=== PATIENT | male | born 1975 | race Caucasian/White ===

== ENCOUNTER → 2016-11-12 | Outpatient (CLI) | payer BC ==
--- NOTE | 2016-11-12 13:57 | Diagnostic Imaging Report ---
PROCEDURE: CT abdomen and pelvis without contrast. TECHNIQUE: Multiple contiguous axial images were obtained through the abdomen and pelvis without the use of intravenous contrast. INDICATION: Gross hematuria. FINDINGS: The lung bases appear unremarkable. The liver, the gallbladder, the adrenals, and the pancreas appear unremarkable for unenhanced exam. The spleen is 14.3 x 5.2 x 11.9 cm in size, mildly enlarged. The kidneys demonstrate no hydronephrosis. No urinary tract stones. There is no bowel obstruction. The appendix is normal. There is diverticulosis. No diverticulitis. No free fluid or fluid collection in the abdomen or pelvis is seen. There is a small fat-containing umbilical hernia. The osseous structures demonstrate mild degenerative changes of the sacroiliac joints. IMPRESSION: 1. Small fat-containing periumbilical hernia. 2. Diverticulosis. No diverticulitis. 3. No urinary tract stones. No hydronephrosis. Dictated by: Dictated on workstation # [id number]
== END ==
LOC: RAD 12:21
PROVIDERS: ATTEND Urology
DX: R31.0 Gross hematuria (principal); K42.9 Umbilical hernia without obstruction or gangrene; K57.30 Diverticulosis of large intestine without perforation or abscess without bleeding
CPT/HCPCS: 74176

== ENCOUNTER 2018-01-16 06:14 | Emergency (ER) | payer BC ==
[~2018-01-16] VITALS: Ht 177.8 cm; Wt 81.6 kg
[2018-01-16] MEDS ORDERED: RIVA1TAB (06:27)
[2018-01-16] MEDS ORDERED: SERT25TA5 (06:27)
[2018-01-16] MEDS ORDERED: ATOR10TA66 (06:27)
--- NOTE | 2018-01-16 06:51 | ED Lower Extremity ---
General Chief Complaint: Lower Extremity Stated Complaint: PAIN BEHIND KNEE, LEFT LEG Nursing Triage Note: LEFT POSTERIOR LEG PRESSURE. STARTED ON XARALTO FOR DVT Nursing Sepsis Screen: No Definite Risk Source: patient Exam Limitations: no limitations History of Present Illness Date Seen by Provider: Jan 16, 2018 Time Seen by Provider: 06:25 Initial Comments Here with complaint of left posterior leg pressure. Apparently had event earlier this week after a long car trip was seen at another facility and found to have a DVT in the area behind the left knee. He was started on Xarelto at that time and has been on it since. He woke up this morning and felt like there is a little bit of pressure above the spot where the DVT was is very concerned about a PE. Denies chest pain or shortness of breath. Denies other problems or concerns. States the leg actually feels better and is not swollen more, and in fact is probably swollen less now. Onset: this morning Severity: mild Pain/Injury Location: left leg Method of Injury: other Modifying Factors: Improves With Rest Allergies and Home Medications Patient Home Medication List Home Medication List Reviewed: Yes Constitutional: see HPI; No chills, No fever Respiratory: no symptoms reported; No dyspnea on exertion, No wheezing Cardiovascular: No chest pain, No edema, No palpitations, No syncope Gastrointestinal: no symptoms reported Genitourinary: no symptoms reported Musculoskeletal: see HPI, muscle pain; No muscle stiffness, No muscle cramps Skin: see HPI; No change in color, No lesions Past Mywhhkt-Zntihd-Mjgpso Hx Past Med/Social Hx: Reviewed Nursing Past Med/Soc Hx Patient Social History Alcohol Use: Denies Use Recreational Drug Use: No Smoking Status: Never a Smoker 2nd Hand Smoke Exposure: No Recent Foreign Travel: No Contact w/Someone Who Travel: No Recent Infectious Disease Expo: No Recent Hopitalizations: No Immunizations Up To Date Tetanus Booster (TDap): Unknown Seasonal Allergies Seasonal Allergies: No Past Medical History Respiratory: No Cardiac: Yes High Cholesterol Neurological: No Genitourinary: No Gastrointestinal: No Musculoskeletal: No Endocrine: No HEENT: No Cancer: No Psychosocial: Yes Anxiety Integumentary: No Family Medical History Reviewed Nursing Family Hx Physical Exam Vital Signs Vital Signs - First Documented 01/16/18 06:20 Temp 97.7 Pulse 75 Resp 20 B/P (MAP) 144/108 (120) Pulse Ox 99 O2 Delivery Room Air Capillary Refill : Less Than 3 Seconds Height, Weight, BMI Height: 5'10.00" Weight: 180lbs. oz. 81.209844pa; BMI Method:Estimated General Appearance: WD/WN, no apparent distress Cardiovascular: regular rate, rhythm, no edema, no murmur Respiratory: lungs clear, normal breath sounds Gastrointestinal: non tender, soft Legs: bilateral leg non-tender, bilateral leg normal inspection, bilateral leg normal range of motion, bilateral leg no evidence of injury; left leg other ( left leg appears in size as right leg. Does have mild tenderness in the posterior aspect of the left leg distal to the knee in the area where the DVT is known to be. Otherwise no significant findings or changes) Feet: bilateral foot non-tender, bilateral foot normal inspection, bilateral foot normal range of motion Neurologic/Psychiatric: alert, oriented x 3 Skin: normal color, warm/dry Progress/Results/Core Measures Results/Orders Vital Signs/I&O 01/16/18 06:20 Temp 97.7 Pulse 75 Resp 20 B/P (MAP) 144/108 (120) Pulse Ox 99 O2 Delivery Room Air Blood Pressure Mean: 120 Progress Progress Note : Progress Note Seen and evaluated. Patient is on started pack for Xarelto and is taking that as prescribed. Patient mostly concerned about the possibility of pulmonary embolism. He has no findings of this and is currently under appropriate therapeutic treatment. All this was discussed with the patient he feels better. He admits that his anxiety related to the medical problems was the main problem and that he was actually having PE symptoms. Discharged home with return precautions. Patient verbalize understanding instructions and agreement with plan. Departure Impression Primary Impression: Left leg DVT Qualified Codes: I82.4Z2 - Acute embolism and thrombosis of unspecified deep veins of left distal lower extremity Disposition: HOME, SELF-CARE Condition: Improved Departure-Patient Inst. Decision time for Depature: 06:57 Referrals: DI BECKFORD MD (PCP/Family) Primary Care Physician Patient Instructions: Deep Vein Thrombosis (Blood Clots in the Legs) (DC) Add. Discharge Instructions: All discharge instructions reviewed with patient and/or family. Voiced understanding. Continue medications as previously prescribed. Follow-up with your DrBarbara within one week as needed for recheck and further evaluation. Return for worse pain, increased swelling, increased redness or heaviness of the leg, breathing problems, chest pain or other concerns as needed. Copy Copies To 1: DI BECKFORD MD, TIMOTHY D MD Jan 16, 2018 06:51
[2018-01-16 07:00] VITALS: BP 144/108
== END 2018-01-16 07:00 | disposition home or self-care (01) ==
LOC: EDUNIT# 06:14 → ER 06:17
DX: I82.402 Acute embolism and thrombosis of unspecified deep veins of left lower extremity (principal); E78.00 Pure hypercholesterolemia, unspecified; F41.9 Anxiety disorder, unspecified; Z79.01 Long term (current) use of anticoagulants
CPT/HCPCS: 99283

== ENCOUNTER 2018-01-20 20:11 | Emergency (ER) | payer BC ==
[~2018-01-20] VITALS: Ht 177.8 cm; Wt 86.2 kg
[~2018-01-20 20:11] MED LIST: ATOR10TA66; RIVA1TAB; SERT25TA5
--- NOTE | 2018-01-20 20:51 | ED Chest Pain ---
General Chief Complaint: Chest Pain Stated Complaint: BLOOD CLOT Nursing Triage Note: PT PRESENTS TO ER WITH COMPLAINT OF BLOOD CLOT. PT STATES HE WAS DIAGNOSED LAST SATURDAY WITH A DVT IN LEFT LEG. PT IS WORRIED THAT THE CLOT HAS MOVED TO HIS LUNGS, SINCE HE IS HAVING PAIN WHENEVER HE TAKES A DEEP BREATH IN. PT TAKES XARELTO 15MG TWICE A DAY. Nursing Sepsis Screen: No Definite Risk Source: patient Exam Limitations: no limitations History of Present Illness Date Seen by Provider: Jan 20, 2018 Time Seen by Provider: 20:48 Initial Comments to ER with reports of possible pulmonary embolism. One week ago on 01/06/18 he was diagnosed with a DVT in the left lower extremity while in [facility]. He and his wifewere on a [place]country road trip visiting [place] [employer] [place]. He returned and saw his primary care provider Dr. Beckford who started him on Xarelto 15 mg twice a day aand anxiety medication. He was seen here a few days ago for some anxiety, he is concerned he will develop a pulmonary embolism. However during that visit here in the emergency room a few days ago he had no chest pain or shortness of breath. Today he noticed a sharp pain in the right side of his chest and since then he's had some mild sharp pain to the left side of his chest with deep breathing.however, he does not feel short of breath. On arrival to ER his heart rate is in the 80s sinus without ectopy, blood pressure is 160/100, oxygen saturation 97% on room air and he is not tachypneic.the swelling in his leg is essentially gone and he has no residual pain in his left leg Timing/Duration: 1 day Severity/Quality: mild Location: central ASA po TOP FORMER: No NTG SL TOP FORMER: No Allergies and Home Medications Allergies Coded Allergies: No Known Drug Allergies (Unverified , 01/16/18) Patient Home Medication List Home Medication List Reviewed: Yes Review of Systems Constitutional: see HPI EENTM: No Symptoms Reported Respiratory: See HPI Cardiovascular: No Symptoms Reported Gastrointestinal: No Symptoms Reported Genitourinary: No Symptoms Reported Musculoskeletal: no symptoms reported Skin: no symptoms reported Psychiatric/Neurological: No Symptoms Reported Endocrine: No Symptoms Reported Hematologic/Lymphatic: No Symptoms Reported Past Ivjmapb-Guyyra-Tryard Hx Patient Social History Alcohol Use: Denies Use Recreational Drug Use: No Smoking Status: Never a Smoker 2nd Hand Smoke Exposure: No Recent Foreign Travel: No Contact w/Someone Who Travel: No Recent Infectious Disease Expo: No Recent Hopitalizations: No Immunizations Up To Date Tetanus Booster (TDap): Unknown Seasonal Allergies Seasonal Allergies: No Past Medical History Respiratory: No Cardiac: Yes High Cholesterol Neurological: No Genitourinary: No Gastrointestinal: No Musculoskeletal: No Endocrine: No HEENT: No Cancer: No Psychosocial: Yes Anxiety Integumentary: No Physical Exam Vital Signs Vital Signs - First Documented 01/20/18 20:19 Temp 99.1 Pulse 87 Resp 20 B/P (MAP) 167/103 (124) Pulse Ox 99 O2 Delivery Room Air Capillary Refill : Less Than 3 Seconds Height, Weight, BMI Height: 5'10.00" Weight: 190lbs. oz. 86.194616af; BMI Method:Stated General Appearance: No Apparent Distress, WD/WN HEENT: PERRL/EOMI, TMs Normal Neck: Full Range of Motion, Normal Inspection Respiratory: Lungs Clear, Normal Breath Sounds, No Accessory Muscle Use, No Respiratory Distress Cardiovascular: Regular Rate, Rhythm, Normal Peripheral Pulses Gastrointestinal: Normal Bowel Sounds, Non Tender, Soft Extremity: Normal Capillary Refill, Normal Inspection (/) Neurologic/Psychiatric: Alert, Oriented x3 Skin: Normal Color, Warm/Dry Progress/Results/Core Measures Results/Orders My Orders Orders - MATTHEW MARTINEZ APRN Ct Angio Chest W (01/20/18 20:47) Iohexol Injection (Omnipaque 350 Mg/Ml 1 (01/20/18 21:00) Ns (Ivpb) (Sodium Chloride 0.9% Ivpb Bag (01/20/18 21:00) Medications Given in ED Current Medications Medications Dose Ordered Sig/Fabien Route Start Time Stop Time Status Last Admin Dose Admin Iohexol 150 ml ONCE ONCE IV 01/20/18 21:00 01/20/18 21:38 DC 01/20/18 20:59 140 ML Sodium Chloride 100 ml ONCE ONCE IV 01/20/18 21:00 01/20/18 21:38 DC 01/20/18 20:59 100 ML Vital Signs/I&O 01/20/18 20:19 Temp 99.1 Pulse 87 Resp 20 B/P (MAP) 167/103 (124) Pulse Ox 99 O2 Delivery Room Air Blood Pressure Mean: 124 Diagnostic Imaging Diagonstic Imaging: CT Comments : 1975 PHYSICIAN: MATTHEW MARTINEZ POWER PROJECT MANAGER ADMIT DATE: 01/20/18/ER Signed Date of Exam:01/20/18 CT ANGIO CHEST W PROCEDURE: CT angiography of the chest with contrast. TECHNIQUE: Multiple contiguous axial images were obtained through the chest after uneventful bolus administration of intravenous contrast. Reconstructed CTA MIP acquisitions were also performed. INDICATION: DVT, chest pain. COMPARISON: None. FINDINGS: There is a tiny pulmonary embolism in the lobar branch of the right middle lobe. No additional pulmonary embolism is seen. The aorta is normal. The heart size is normal. There is no pericardial or pleural effusion. No infiltrates are seen. The osseous structures are normal. The visualized upper abdominal solid organs are unremarkable. IMPRESSION: Lobar branch pulmonary embolism in the right middle lobe. No cardiac enlargement identified. Report called to Matthew Martinez APRN by Dr. Bridges prior to dictation. Dictated by: Dictated on workstation # [id number] Dict: 01/20/182134 Trans: 01/20/182143 [facility] [id number] Interpreted by: DI BRIDGES Electronically signed by: DI BRIDGES 01/20/182143 Departure Communication (Admissions) Patient is very anxious about diagnosis of pulmonary embolism. He states this is been his fear since she was diagnosed with a DVT. I did discuss with him that even though he has a pulmonary embolism, he is a very low risk patient given the absence of other risk factors. I discussed with him the [email or web address] and he is less than 65 on that which is considered to be very low risk appropriate for outpatient treatment and 30 mortality is 0-1.6%. Impression Primary Impression: Pulmonary embolism Disposition: HOME, SELF-CARE Condition: Stable Departure-Patient Inst. Decision time for Depature: 22:04 Referrals: DI BECKFORD MD (PCP/Family) Primary Care Physician Patient Instructions: Pulmonary Embolism (Blood Clot in the Lungs) (DC) Add. Discharge Instructions: 1. Return to ER for any severe shortness of breath, lightheadedness low blood pressure or high heart rate or low oxygen saturation. You can buy a pulse oximeter and blood pressure cuff at [facility]. Dr. Tillman's office tomorrow we can appointment to be seen. Your very low risk based on your prognostic factors and this is a very small blood clot. All discharge instructions reviewed with patient and/or family. Voiced understanding. Copy Copies To 1: DI BECKFORD MD, PETER J APRN Jan 20, 2018 20:51
[2018-01-20] MEDS ORDERED: NS 100 ML (IVPB) BAG IV ONE (21:00)
[2018-01-20] MEDS ORDERED: IOHEXOL 350 MG/ML 150 ML (OMNIPAQUE 350) VIAL IV ONE (21:00)
--- NOTE | 2018-01-20 21:45 | Diagnostic Imaging Report ---
PROCEDURE: CT angiography of the chest with contrast. TECHNIQUE: Multiple contiguous axial images were obtained through the chest after uneventful bolus administration of intravenous contrast. Reconstructed CTA MIP acquisitions were also performed. INDICATION: DVT, chest pain. COMPARISON: None. FINDINGS: There is a tiny pulmonary embolism in the lobar branch of the right middle lobe. No additional pulmonary embolism is seen. The aorta is normal. The heart size is normal. There is no pericardial or pleural effusion. No infiltrates are seen. The osseous structures are normal. The visualized upper abdominal solid organs are unremarkable. IMPRESSION: Lobar branch pulmonary embolism in the right middle lobe. No cardiac enlargement identified. Report called to Matthew Martinez APRN by Dr. Bridges prior to dictation. Dictated by: Dictated on workstation # [id number]
[2018-01-20 22:11] VITALS: BP 154/88
== END 2018-01-20 22:11 | disposition home or self-care (01) ==
LOC: EDUNIT# 20:11 → ER 20:12
DX: I26.99 Other pulmonary embolism without acute cor pulmonale (principal); F41.9 Anxiety disorder, unspecified; E78.00 Pure hypercholesterolemia, unspecified; Z86.718 Personal history of other venous thrombosis and embolism; Z79.01 Long term (current) use of anticoagulants
CPT/HCPCS: 71275; 93005

== ENCOUNTER 2018-01-29 14:59 | Outpatient (RCR) | payer BC ==
[2018-02-03] MEDS ORDERED: RIVA20TA PO (16:05)
== END 2018-02-21 | disposition home or self-care (01) ==
LOC: ONC 14:59
PROVIDERS: ATTEND Internal Medicine Hematology & Oncology
DX: I82.402 Acute embolism and thrombosis of unspecified deep veins of left lower extremity (principal); I26.99 Other pulmonary embolism without acute cor pulmonale; E78.5 Hyperlipidemia, unspecified; Z79.01 Long term (current) use of anticoagulants; Z79.899 Other long term (current) drug therapy
CPT/HCPCS: 99214

== ENCOUNTER 2018-02-03 15:47 | Emergency (ER) | payer BC ==
[~2018-02-03] VITALS: Ht 177.8 cm; Wt 85.3 kg
[2018-02-03] MEDS ORDERED: RIVA20TA PO (16:05)
[2018-02-03 16:10] LABS: BASOPHILS % (AUTO) 0 % (0-10); EOSINOPHILS # (AUTO) 0.1 10^3/uL (0.0-0.3); EOSINOPHILS % (AUTO) 1 % (0-10); HEMATOCRIT 40 % (40-54); HEMOGLOBIN 14.8 G/DL (13.3-17.7); LYMPHOCYTES # (AUTO) 1.4 X 10^3 (1.0-4.0); LYMPHOCYTES % (AUTO) 17 % (12-44); MEAN CORPUSCULAR HEMOGLOBIN 34 PG (25-34); MEAN CORPUSCULAR HGB CONC 37 G/DL (32-36); MEAN CORPUSCULAR VOLUME 92 FL (80-99); MEAN PLATELET VOLUME 9.6 FL (7.4-10.4); MONOCYTES # (AUTO) 0.7 X 10^3 (0.0-1.0); MONOCYTES % (AUTO) 8 % (0-12); NEUTROPHILS # (AUTO) 6.2 X 10^3 (1.8-7.8); NEUTROPHILS % (AUTO) 74 % (42-75); PLATELET COUNT 332 10^3/uL (130-400); RED BLOOD COUNT 4.31 10^6/uL (4.35-5.85); RED CELL DISTRIBUTION WIDTH 12.2 % (10.0-14.5); WHITE BLOOD COUNT 8.3 10^3/uL (4.3-11.0)
[2018-02-03 16:25] LABS: ALANINE AMINOTRANSFERASE 47 U/L (0-55); ALBUMIN 4.7 GM/DL (3.2-4.5); ALKALINE PHOSPHATASE 71 U/L (40-136); BILIRUBIN,TOTAL 0.7 MG/DL (0.1-1.0); BUN/CREATININE RATIO 15; CALCIUM 9.6 MG/DL (8.5-10.1); CARBON DIOXIDE 23 MMOL/L (21-32); CHLORIDE 107 MMOL/L (98-107); CREATININE SERUM 0.82 MG/DL (0.60-1.30); GFR ESTIMATED > 60; GLUCOSE 108 MG/DL (70-105); MAGNESIUM 2.1 MG/DL (1.8-2.4); POTASSIUM 3.9 MMOL/L (3.6-5.0); SODIUM 140 MMOL/L (135-145); TOTAL PROTEIN 7.7 GM/DL (6.4-8.2)
--- NOTE | 2018-02-03 16:28 | Diagnostic Imaging Report ---
INDICATION: Chest pain, prior history of PE. Frontal chest obtained at 04:13 p.m. Heart and mediastinal silhouette are normal in appearance. The lungs are clear. There is no pneumothorax or pleural fluid. IMPRESSION: Negative chest. Dictated by: Dictated on workstation # [id number]
[2018-02-03 16:31] LABS: MYOGLOBIN SERUM 18.3 NG/ML (10.0-92.0)
--- NOTE | 2018-02-03 16:46 | ED Chest Pain ---
General Chief Complaint: Chest Pain Stated Complaint: CP Nursing Triage Note: ARRIVED VIA AMB TO ROOM 03 WITH COMPLAINTS OF OFF AND ON SHARP PAINS IN CHEST TODAY. HX OF BLOOD CLOT LEFT CALF AND PE IN LUNG. Nursing Sepsis Screen: No Definite Risk Source: patient Exam Limitations: no limitations History of Present Illness Date Seen by Provider: Feb 03, 2018 Time Seen by Provider: 16:00 Initial Comments Here with report of several episodes of twinges to the chest that is sharp and lasts for a second or less. Has concerns because he has a blood clot in the left calf has been treated with Xarelto and he just went from twice a day dosing to once a day dosing. He is also noted to have a very small PE. He is worried that the clot may be recommended loose or other problems. Denies shortness of breath, weakness, blood pressure issues, nausea, vomiting or other concerns. Does admit anxiousness. Timing/Duration: 12 hours Severity/Quality: moderate, sharp Location: central Radiation: no radiation Activities at Onset: none Prior CP/Workup: no prior cardiac workup ASA po [employer]: No NTG SL [employer]OR [employer]: No Associated Symptoms: No abdominal pain, No diaphoresis, No dizziness, No edema , No fatigue, No nausea/vomiting, No shortness of breath, No weakness Allergies and Home Medications Allergies Coded Allergies: No Known Drug Allergies (Unverified , 01/16/18) Home Medications Rivaroxaban 20 Mg Tablet, 20 MG PO DAILY, (Reported) Patient Home Medication List Home Medication List Reviewed: Yes Review of Systems Constitutional: see HPI; No chills, No fever EENTM: No Symptoms Reported Respiratory: No Symptoms Reported Cardiovascular: See HPI; Denies Lightheadedness, Denies Palpitations, Denies Syncope Gastrointestinal: No Symptoms Reported Genitourinary: No Symptoms Reported All Other Systems Reviewed Negative Unless Noted: Yes Past Dqhgfhs-Knbjsi-Amvkxq Hx Past Med/Social Hx: Reviewed Nursing Past Med/Soc Hx Patient Social History Alcohol Use: Denies Use Recreational Drug Use: No Smoking Status: Never a Smoker 2nd Hand Smoke Exposure: No Recent Foreign Travel: No Contact w/Someone Who Travel: No Recent Infectious Disease Expo: No Recent Hopitalizations: No Immunizations Up To Date Tetanus Booster (TDap): Unknown Seasonal Allergies Seasonal Allergies: No Past Medical History Surgeries: Yes Orthopedic Respiratory: Yes (DVT) Pulmonary Embolism Cardiac: Yes High Cholesterol Neurological: No Genitourinary: No Gastrointestinal: No Musculoskeletal: No Endocrine: No HEENT: No Cancer: No Psychosocial: Yes Anxiety Integumentary: No Family Medical History Reviewed Nursing Family Hx Heart Disease Physical Exam Vital Signs Vital Signs - First Documented 02/03/18 15:47 Temp 98.0 Pulse 81 Resp 16 B/P (MAP) 148/114 (125) Pulse Ox 97 O2 Delivery Room Air Capillary Refill : Less Than 3 Seconds Height, Weight, BMI Height: 5'10.00" Weight: 188lbs. oz. 85.754502fb; BMI Method:Stated General Appearance: No Apparent Distress, WD/WN HEENT: PERRL/EOMI, Pharynx Normal Neck: Non Tender, Supple Respiratory: Lungs Clear, Normal Breath Sounds Cardiovascular: Regular Rate, Rhythm, No Murmur Gastrointestinal: Non Tender, Soft Extremity: Normal Range of Motion, Non Tender, No Calf Tenderness Neurologic/Psychiatric: Alert, Oriented x3 Skin: Normal Color, Warm/Dry Progress/Results/Core Measures Results/Orders Lab Results Laboratory Tests Test 02/03/18 15:50 Range/Units White Blood Count 8.3 4.3-11.0 10^3/uL Red Blood Count 4.31 L 4.35-5.85 10^6/uL Hemoglobin 14.8 13.3-17.7 G/DL Hematocrit 40 40-54 % Mean Corpuscular Volume 92 80-99 FL Mean Corpuscular Hemoglobin 34 25-34 PG Mean Corpuscular Hemoglobin Concent 37 H 32-36 G/DL Red Cell Distribution Width 12.2 10.0-14.5 % Platelet Count 332 130-400 10^3/uL Mean Platelet Volume 9.6 7.4-10.4 FL Neutrophils (%) (Auto) 74 42-75 % Lymphocytes (%) (Auto) 17 12-44 % Monocytes (%) (Auto) 8 0-12 % Eosinophils (%) (Auto) 1 0-10 % Basophils (%) (Auto) 0 0-10 % Neutrophils # (Auto) 6.2 1.8-7.8 X 10^3 Lymphocytes # (Auto) 1.4 1.0-4.0 X 10^3 Monocytes # (Auto) 0.7 0.0-1.0 X 10^3 Eosinophils # (Auto) 0.1 0.0-0.3 10^3/uL Basophils # (Auto) 0.0 0.0-0.1 10^3/uL Sodium Level 140 135-145 MMOL/L Potassium Level 3.9 3.6-5.0 MMOL/L Chloride Level 107 98-107 MMOL/L Carbon Dioxide Level 23 21-32 MMOL/L Anion Gap 10 5-14 MMOL/L Blood Urea Nitrogen 12 7-18 MG/DL Creatinine 0.82 0.60-1.30 MG/DL Estimat Glomerular Filtration Rate > 60 BUN/Creatinine Ratio 15 Glucose Level 108 H 70-105 MG/DL Calcium Level 9.6 8.5-10.1 MG/DL Corrected Calcium 8.5-10.1 MG/DL Magnesium Level 2.1 1.8-2.4 MG/DL Total Bilirubin 0.7 0.1-1.0 MG/DL Aspartate Amino Transf (AST/SGOT) 28 5-34 U/L Alanine Aminotransferase (ALT/SGPT) 47 0-55 U/L Alkaline Phosphatase 71 40-136 U/L Myoglobin 18.3 10.0-92.0 NG/ML Troponin I < 0.30 <0.30 NG/ML Total Protein 7.7 6.4-8.2 GM/DL Albumin 4.7 H 3.2-4.5 GM/DL My Orders Orders - ELLIS BOYD MD Cbc With Automated Diff (02/03/18 16:01) Magnesium (02/03/18 16:01) Chest 1 View, Ap/Pa Only (02/03/18 16:01) Ekg Tracing (02/03/18 16:01) Cardiac Profile 1 (02/03/18 16:01) Comprehensive Metabolic Panel (02/03/18 16:01) Myoglobin Serum (02/03/18 16:01) Monitor-Rhythm Ecg Trace Only (02/03/18 16:01) Saline Lock/Iv-Start (02/03/18 16:) Vital Signs/I&O 02/03/18 15:47 Temp 98.0 Pulse 81 Resp 16 B/P (MAP) 148/114 (125) Pulse Ox 97 O2 Delivery Room Air Blood Pressure Mean: 125 Progress Progress Note : Progress Note Seen and evaluated. IV, labs, EKG and chest x-ray ordered. Patient is on Xarelto. No indications clinically of worsening pulmonary embolism. Patient is currently under therapy. We will check basic labs and EKG and reevaluate. 1700: No significant events during ER stay. Everything else is negative. Discharged home with return precautions. Patient verbalize understanding instructions and agreement with plan. Diagnostic Imaging Diagonstic Imaging: Xray Plain Films/CT/US/NM/MRI: chest Comments NAME: CIPRIANO PATRICK [facility] REC#: [id number] PT STATUS: REG ER : 1975 PHYSICIAN: ELLIS BOYD MD ADMIT DATE: 02/03/18/ER Signed Date of Exam: 02/03/18 CHEST 1 VIEW, AP/PA ONLY INDICATION: Chest pain, prior history of PE. Frontal chest obtained at 04:13 p.m. Heart and mediastinal silhouette are normal in appearance. The lungs are clear. There is no pneumothorax or pleural fluid. IMPRESSION: Negative chest. Dictated by: Dictated on workstation # [id number] Dict: 02/03/18 1622 Trans: 02/03/18 1636 Interpreted by: CONCEPCION HANDY MD Electronically signed by: CONCEPCION HANDY MD 02/03/18 1636 Departure Impression Primary Impression: Chest pain Qualified Codes: R07.9 - Chest pain, unspecified Disposition: HOME, SELF-CARE Condition: Improved Departure-Patient Inst. Decision time for Depature: 17:01 Referrals: DI BECKFORD MD (PCP) Primary Care Physician Patient Instructions: Chest Pain (DC) Add. Discharge Instructions: All discharge instructions reviewed with patient and/or family. Voiced understanding. Continue home medications as directed. Follow-up with your DrBarbara in a few days for recheck. Return for worse pain, fever, vomiting, weakness, breathing becomes other concerns as needed. Copy Copies To 1: DI BECKFORD MD, TIMOTHY D MD Feb 03, 2018 16:46
[2018-02-03 17:06] VITALS: BP 128/84
== END 2018-02-03 17:06 | disposition home or self-care (01) ==
LOC: EDUNIT# 15:47 → ER 15:49
DX: R07.89 Other chest pain (principal); E78.00 Pure hypercholesterolemia, unspecified; F41.9 Anxiety disorder, unspecified; Z86.718 Personal history of other venous thrombosis and embolism
CPT/HCPCS: 36415; 71045; 80053; 83735; 83874; 84484; 85025; 93005; 93041

== ENCOUNTER 2018-03-13 11:12 | Emergency (ER) | payer BC ==
[~2018-03-13] VITALS: Ht 177.8 cm; Wt 79.4 kg
[~2018-03-13 11:12] MED LIST changes: +RIVA20TA PO
[2018-03-13 11:45] LABS: BASOPHILS % (AUTO) 0 % (0-10); EOSINOPHILS % (AUTO) 0 % (0-10); HEMATOCRIT 38 % (40-54); HEMOGLOBIN 14.9 G/DL (13.3-17.7); LYMPHOCYTES # (AUTO) 1.1 X 10^3 (1.0-4.0); LYMPHOCYTES % (AUTO) 16 % (12-44); MEAN CORPUSCULAR HEMOGLOBIN 35 PG (25-34); MEAN CORPUSCULAR HGB CONC 39 G/DL (32-36); MEAN CORPUSCULAR VOLUME 91 FL (80-99); MEAN PLATELET VOLUME 9.4 FL (7.4-10.4); MONOCYTES # (AUTO) 0.6 X 10^3 (0.0-1.0); MONOCYTES % (AUTO) 9 % (0-12); NEUTROPHILS # (AUTO) 5.2 X 10^3 (1.8-7.8); NEUTROPHILS % (AUTO) 76 % (42-75); PLATELET COUNT 241 10^3/uL (130-400); RED BLOOD COUNT 4.22 10^6/uL (4.35-5.85); RED CELL DISTRIBUTION WIDTH 12.3 % (10.0-14.5); WHITE BLOOD COUNT 6.9 10^3/uL (4.3-11.0)
--- NOTE | 2018-03-13 11:49 | ED Chest Pain ---
General Chief Complaint: Chest Pain Stated Complaint: CHEST PAIN Nursing Triage Note: PT CO OF CHRONIC CHEST PAIN PT STATES HAS HX OF PE AND BLOOD CLOT. PT STATES HE IS ANXIOUS Nursing Sepsis Screen: No Definite Risk Source: patient Exam Limitations: no limitations History of Present Illness Date Seen by Provider: Mar 13, 2018 Time Seen by Provider: 11:44 Initial Comments To ER complete by his with reports of intermittent sharp chest pain at various locations about his chest. This pain is rated 3 out of 10 and has been constant for several weeks. About 9 weeks ago he was diagnosed with a small pulmonary embolism after diagnosis of a left leg DVT. He is on Xarelto for this. He is not short of breath. He is scheduled to have an echocardiogram on Saturday and stress test in April to further evaluate this chest pain that he' s been having. He has seen cardiology for this. He is very anxious and concerned that this chest pain represents cardiac etiology instead of chest pain by his PE. He has also seen primary care and been told this was costochondritis. He states that icing does help with the chest pain that he gets. He would like to have the echocardiogram pushed up sooner if possible to give him some piece of mind. He is a nonsmoker, does have a family history of heart disease including his father. Timing/Duration: changing over time Severity/Quality: mild Location: other (various locations about the chest) ASA po PHOTOFLASH POWDER MIXER: No NTG SL PHOTOFLASH POWDER MIXER: No Associated Symptoms: No nausea/vomiting, No shortness of breath Allergies and Home Medications Allergies Coded Allergies: No Known Drug Allergies (Unverified , 01/16/18) Home Medications Rivaroxaban 20 Mg Tablet, 20 MG PO DAILY, (Reported) Patient Home Medication List Home Medication List Reviewed: Yes Review of Systems Review of Systems Constitutional: see HPI EENTM: No Symptoms Reported Respiratory: See HPI; Denies Cough, Denies Shortness of Air Cardiovascular: See HPI, Chest Pain; Denies Edema, Denies Irregular Heart Rate , Denies Lightheadedness, Denies Palpitations, Denies Syncope Gastrointestinal: No Symptoms Reported Musculoskeletal: no symptoms reported Skin: no symptoms reported Psychiatric/Neurological: No Symptoms Reported Endocrine: No Symptoms Reported Hematologic/Lymphatic: No Symptoms Reported Past Ykbuvwk-Kfetuu-Kktcqw Hx Patient Social History Alcohol Use: Denies Use Recreational Drug Use: No Smoking Status: Never a Smoker 2nd Hand Smoke Exposure: No Recent Foreign Travel: No Contact w/Someone Who Travel: No Recent Infectious Disease Expo: No Recent Hopitalizations: No Immunizations Up To Date Tetanus Booster (TDap): Unknown Seasonal Allergies Seasonal Allergies: No Past Medical History Surgeries: Yes Orthopedic Respiratory: Yes (DVT) Pulmonary Embolism Cardiac: Yes High Cholesterol Neurological: No Genitourinary: No Gastrointestinal: No Musculoskeletal: No Endocrine: No HEENT: No Cancer: No Psychosocial: Yes Anxiety Integumentary: No Family Medical History Heart Disease Physical Exam Vital Signs Vital Signs - First Documented 03/13/18 11:15 Temp 97.4 Pulse 71 Resp 22 B/P (MAP) 147/94 (111) Pulse Ox 99 O2 Delivery Room Air Capillary Refill : Less Than 3 Seconds Height, Weight, BMI Height: 5'10.00" Weight: 175lbs. oz. 79.579782mh; BMI Method:Stated General Appearance: No Apparent Distress, WD/WN, Anxious HEENT: PERRL/EOMI, TMs Normal Neck: Full Range of Motion, Normal Inspection Respiratory: Lungs Clear, Normal Breath Sounds, No Accessory Muscle Use, No Respiratory Distress Cardiovascular: Regular Rate, Rhythm, Normal Peripheral Pulses Gastrointestinal: Normal Bowel Sounds, Non Tender, Soft Extremity: Normal Capillary Refill, Normal Inspection Neurologic/Psychiatric: Alert, Oriented x3 Skin: Normal Color, Warm/Dry Progress/Results/Core Measures Results/Orders Lab Results Laboratory Tests Test 03/13/18 11:30 Range/Units White Blood Count 6.9 4.3-11.0 10^3/uL Red Blood Count 4.22 L 4.35-5.85 10^6/uL Hemoglobin 14.9 13.3-17.7 G/DL Hematocrit 38 L 40-54 % Mean Corpuscular Volume 91 80-99 FL Mean Corpuscular Hemoglobin 35 H 25-34 PG Mean Corpuscular Hemoglobin Concent 39 H 32-36 G/DL Red Cell Distribution Width 12.3 10.0-14.5 % Platelet Count 241 130-400 10^3/uL Mean Platelet Volume 9.4 7.4-10.4 FL Neutrophils (%) (Auto) 76 H 42-75 % Lymphocytes (%) (Auto) 16 12-44 % Monocytes (%) (Auto) 9 0-12 % Eosinophils (%) (Auto) 0 0-10 % Basophils (%) (Auto) 0 0-10 % Neutrophils # (Auto) 5.2 1.8-7.8 X 10^3 Lymphocytes # (Auto) 1.1 1.0-4.0 X 10^3 Monocytes # (Auto) 0.6 0.0-1.0 X 10^3 Eosinophils # (Auto) 0.0 0.0-0.3 10^3/uL Basophils # (Auto) 0.0 0.0-0.1 10^3/uL Prothrombin Time 27.8 H 12.2-14.7 SEC INR Comment 2.6 H 0.8-1.4 Activated Partial Thromboplast Time 51 H 24-35 SEC Sodium Level 140 135-145 MMOL/L Potassium Level 3.8 3.6-5.0 MMOL/L Chloride Level 107 98-107 MMOL/L Carbon Dioxide Level 23 21-32 MMOL/L Anion Gap 10 5-14 MMOL/L Blood Urea Nitrogen 9 7-18 MG/DL Creatinine 0.81 0.60-1.30 MG/DL Estimat Glomerular Filtration Rate > 60 BUN/Creatinine Ratio 11 Glucose Level 100 70-105 MG/DL Calcium Level 9.8 8.5-10.1 MG/DL Corrected Calcium 8.5-10.1 MG/DL Magnesium Level 2.0 1.8-2.4 MG/DL Total Bilirubin 1.1 H 0.1-1.0 MG/DL Aspartate Amino Transf (AST/SGOT) 17 5-34 U/L Alanine Aminotransferase (ALT/SGPT) 21 0-55 U/L Alkaline Phosphatase 44 40-136 U/L Myoglobin 67.8 10.0-92.0 NG/ML Troponin I < 0.30 <0.30 NG/ML B-Type Natriuretic Peptide 10.6 <100.0 PG/ML Total Protein 7.2 6.4-8.2 GM/DL Albumin 4.7 H 3.2-4.5 GM/DL My Orders Orders - MARY SNYDER APRN Cbc With Automated Diff (03/13/18 11:16) Magnesium (03/13/18 11:16) Chest 1 View, Ap/Pa Only (03/13/18 11:16) Ekg Tracing (03/13/18 11:16) Cardiac Profile 1 (03/13/18 11:16) Comprehensive Metabolic Panel (03/13/18 11:16) Myoglobin Serum (03/13/18 11:16) Protime With Inr (03/13/18 11:16) Partial Thromboplastin Time (03/13/18 11:16) O2 (03/13/18 11:16) Monitor-Rhythm Ecg Trace Only (03/13/18 11:16) Lipid Panel (03/14/18 06:00) Saline Lock/Iv-Start (03/13/18 11:16) BNP (03/13/18 11:16) Echo W Doppler/Color Flow (03/13/18 11:41) Vital Signs/I&O 03/13/18 03/13/18 03/13/18 11:15 11:15 11:17 Temp 97.4 Pulse 71 Resp 22 B/P (MAP) 147/94 (111) Pulse Ox 99 99 O2 Delivery Room Air Room Air Blood Pressure Mean: 111 Departure Communication (Admissions) logistics technician reports mild aortic regurgitation. This has been sent to Dr. Porter or Dr. Durbin to read. This may take several hours and the patient is not hemodynamically unstable so we will discharge him to home and he can follow-up with cardiology to further discuss her echocardiogram reports. I did report the findings to Dr. Allen. He agrees to follow-up. I had a lengthy conversation with the patient and his about the possible etiologies of his chest pain including pleuritic chest pain and etiologies associated with that, costochondritis. He was very comforted to have the echocardiogram done today. I discussed with him that there were no abnormalities seen by the echocardiogram carpet cleaning technician that would warrant immediate treatment and further report to be obtained from Dr. Durbin. Impression Primary Impression: Chest wall pain Disposition: 01 HOME, SELF-CARE Condition: Stable Departure-Patient Inst. Decision time for Depature: 11:48 Referrals: DI BECKFORD MD (PCP) Primary Care Physician Patient Instructions: Chest Pain That Is Not Caused by the Heart (DC) Add. Discharge Instructions: 1. Follow-up with cardiology as scheduled. You should call your timber sizer later today to inform them that you did have the echocardiogram done here in the emergency room and will not need to have it done on Saturday. All discharge instructions reviewed with patient and/or family. Voiced understanding. Copy Copies To 1: DI BECKFORD MD; ONEIDA DURBIN MD, PETER J APRN Mar 13, 2018 11:49
[2018-03-13 11:55] LABS: INR 2.6 (0.8-1.4); PROTHROMBIN TIME PATIENT 27.8 SEC (12.2-14.7)
[2018-03-13 12:00] LABS: ALANINE AMINOTRANSFERASE 21 U/L (0-55); ALBUMIN 4.7 GM/DL (3.2-4.5); ALKALINE PHOSPHATASE 44 U/L (40-136); BILIRUBIN,TOTAL 1.1 MG/DL (0.1-1.0); BUN/CREATININE RATIO 11; CALCIUM 9.8 MG/DL (8.5-10.1); CARBON DIOXIDE 23 MMOL/L (21-32); CHLORIDE 107 MMOL/L (98-107); CREATININE SERUM 0.81 MG/DL (0.60-1.30); GFR ESTIMATED > 60; GLUCOSE 100 MG/DL (70-105); POTASSIUM 3.8 MMOL/L (3.6-5.0); SODIUM 140 MMOL/L (135-145); TOTAL PROTEIN 7.2 GM/DL (6.4-8.2)
[2018-03-13 12:06] LABS: MYOGLOBIN SERUM 67.8 NG/ML (10.0-92.0)
--- NOTE | 2018-03-13 12:10 | Diagnostic Imaging Report ---
CHEST 1 VIEW, AP/PA ONLY Indication: Chest pain. Comparison: 02/03/2018 Findings: No focal airspace disease in the visualized lungs. Please note that the posterior lower lobes are poorly evaluated by portable radiography. No pleural effusion or pneumothorax. Normal cardiomediastinal silhouette. Impression: No acute cardiopulmonary process by portable radiography. Dictated by: Dictated on workstation # [id number]
[2018-03-13 13:22] VITALS: BP 135/82
== END 2018-03-13 13:22 | disposition home or self-care (01) ==
LOC: EDUNIT# 11:12 → ER 11:13
DX: R07.89 Other chest pain (principal); E78.00 Pure hypercholesterolemia, unspecified; F41.9 Anxiety disorder, unspecified; Z86.718 Personal history of other venous thrombosis and embolism; Z79.01 Long term (current) use of anticoagulants
CPT/HCPCS: 36415; 71045; 80053; 83735; 83874; 83880; 84484; 85025; 85610; 85730; 93005; 93041; 93306

== ENCOUNTER → 2018-03-20 | Outpatient (CLI) | payer BC ==
[~2018-03-20] MED LIST changes: +VENL75CA PO
--- NOTE | 2018-03-20 10:50 | Diagnostic Imaging Report ---
INDICATION: Back pain AP, lateral and swimmer's views of the thoracic spine are obtained. There is mild right convexity curvature of the thoracic spine. Vertebral body heights and disc spaces are maintained. There is no evidence of fracture or malalignment. No paraspinous hematoma is detected. IMPRESSION: Mild right convexity curvature of the thoracic spine without acute abnormality detected. Dictated by: Dictated on workstation # [id number]
== END ==
LOC: RAD 10:31
PROVIDERS: ATTEND Family Medicine
DX: M43.8X4 Other specified deforming dorsopathies, thoracic region (principal)
CPT/HCPCS: 72072

== ENCOUNTER 2018-03-24 06:57 | Emergency (ER) | payer BC ==
[~2018-03-24] VITALS: Ht 177.8 cm; Wt 77.1 kg
[~2018-03-24 06:57] MED LIST changes: -VENL75CA PO
[2018-03-24] MEDS ORDERED: VENL75CA PO (07:34)
--- NOTE | 2018-03-24 07:43 | ED Psychosocial ---
General Chief Complaint: Psych/Social Disorder Stated Complaint: ANXIETY Nursing Triage Note: pt states he has been put on a new medication for anxiety last , had two good days then yesterday had a small panic attack. today presents with increased anxiety after getting around for work. states the anxiety comes from his medical hx and care. denies chest pain, pt entered the ed ambulatory, no SOB upon presentation noted. pt is noted to have rapid speech and movement, no s/s of distress. Source: patient Exam Limitations: no limitations History of Present Illness Date Seen by Provider: Mar 24, 2018 Time Seen by Provider: 07:11 Initial Comments The patient presents to ER by private conveyance with chief complaint that he's been having a lot of anxiety related to his chest pains. He said back in December of this year, 3 months ago after a 14 hour car ride he developed a pulmonary embolism. He's had some chest pain since then and is on Xarelto still. He's been ruled out for any other cardiac pulmonary or pulmonary embolism cause of his pains. He was told he had costochondritis. He followed up in the lots of outpatient testing with Dr. Durbin, cardiology as well as he saw Dr. Billingsley, hematology. He has 1 more appointment with the silver recovery operator. He has set up outpatient counseling that starts tomorrow. His primary care doctor's been following with him and changed him from the Zoloft 25 mg she's been on for the past 10 years to the venlafaxine 75 mg daily. He also gave him some Ativan which the patient says she's taken half a tablet of for his panic attacks in the past couple weeks with good effect. But since he started the venlafaxine he did not want to use the Ativan is afraid it might have some interaction. Allergies and Home Medications Allergies Coded Allergies: No Known Drug Allergies (Unverified , 01/16/18) Home Medications Rivaroxaban 20 Mg Tablet, 20 MG PO DAILY, (Reported) Patient Home Medication List Home Medication List Reviewed: Yes Review of Systems Constitutional: No chills, No diaphoresis EENTM: No hearing loss, No ear pain Respiratory: No cough, No wheezing Cardiovascular: No chest pain, No palpitations Gastrointestinal: No abdominal pain, No constipation Genitourinary: No dysuria, No frequency Past Yprjmdv-Jehmze-Nqomhw Hx Patient Social History Alcohol Use: Occasionally Uses Alcohol Beverage of Choice: Beer Recreational Drug Use: No Smoking Status: Never a Smoker 2nd Hand Smoke Exposure: No Recent Foreign Travel: No Contact w/Someone Who Travel: No Recent Infectious Disease Expo: No Recent Hopitalizations: No Physical Abuse: No Sexual Abuse: No Mistreated: No Fear: No Immunizations Up To Date Tetanus Booster (TDap): Unknown Seasonal Allergies Seasonal Allergies: No Past Medical History Surgeries: Yes Orthopedic Respiratory: Yes (DVT) Pulmonary Embolism Cardiac: Yes High Cholesterol Neurological: No Genitourinary: No Gastrointestinal: No Musculoskeletal: No Endocrine: No HEENT: No Cancer: No Psychosocial: Yes Anxiety Integumentary: No Family Medical History Heart Disease Physical Exam Vital Signs - First Documented 03/24/18 07:02 Temp 98.3 Pulse 72 Resp 20 B/P (MAP) 147/100 (116) Pulse Ox 100 O2 Delivery Room Air Capillary Refill : Less Than 3 Seconds Height, Weight, BMI Height: 5'10.00" Weight: 170lbs. oz. 77.216240cu; BMI Method:Stated General Appearance: WD/WN, no apparent distress HEENT: PERRL/EOMI, normal ENT inspection, TMs normal, pharynx normal Neck: non-tender, normal inspection Respiratory: chest non-tender, lungs clear, normal breath sounds, no respiratory distress, no accessory muscle use Cardiovascular: normal peripheral pulses, regular rate, rhythm Neurologic/Psychiatric: alert, oriented x 3 Progress/Results/Core Measures Results/Orders Vital Signs/I&O 03/24/18 07:02 Temp 98.3 Pulse 72 Resp 20 B/P (MAP) 147/100 (116) Pulse Ox 100 O2 Delivery Room Air Blood Pressure Mean: 116 Progress Progress Note : Time: 07:46 Progress Note We have discussed his anxiety and medical history in great detail. There does not seem to be anything from medical standpoint with emergent nor is anything we can do to help him further with his anxiety at this time. We did offer that we could do inpatient voluntary stay if he wants to see somebody today but the patient denies any suicidality. He is denying that he wants to go into an inpatient hospital. He says that he is okay with waiting until tomorrow be just isn't sure what to do with his anxiety attacks. He also lacerated to do about his costochondritis. We have recommended muscle rubs, heat, massage, distraction. We did offer him Vistaril and/or more Ativan but the patient says he is reluctant to use the Ativan since as interaction with the venlafaxine cause drowsiness. He has declined the Vistaril. After a lengthy discussion we are going to discharge him. Departure Impression Primary Impression: Panic disorder Additional Impression: Anxiety about health Disposition: HOME, SELF-CARE Condition: Stable Departure-Patient Inst. Decision time for Depature: 07:47 Referrals: DI BECKFORD MD (PCP/Family) Primary Care Physician Patient Instructions: Panic Disorder (DC) Add. Discharge Instructions: Please follow-up with your primary care doctor. Keep your appointment with the counselor. Keep your appointment with Dr. Billingsley, oncology. If you begin to have suicidal thoughts or other worrisome symptoms he may return to the ER for further evaluation. All discharge instructions reviewed with patient and/or family. Voiced understanding. Copy Copies To 1: DI BECKFORD MD, TITUS J Mar 24, 2018 07:43
[2018-03-24 08:06] VITALS: BP 125/89
== END 2018-03-24 08:00 | disposition home or self-care (01) ==
LOC: EDUNIT# 06:57 → ER 06:58
DX: F41.0 Panic disorder [episodic paroxysmal anxiety] (principal); E78.00 Pure hypercholesterolemia, unspecified; Z86.718 Personal history of other venous thrombosis and embolism; Z79.01 Long term (current) use of anticoagulants
CPT/HCPCS: 99283

== ENCOUNTER 2018-04-02 10:20 | Outpatient (RCR) | payer BC | END 2018-07-01 | disposition home or self-care (01) | LOC: ONC 10:20 | PROVIDERS: ATTEND Internal Medicine Hematology & Oncology | DX: I82.402 Acute embolism and thrombosis of unspecified deep veins of left lower extremity (principal); I26.99 Other pulmonary embolism without acute cor pulmonale; E78.5 Hyperlipidemia, unspecified; Z79.01 Long term (current) use of anticoagulants; Z79.899 Other long term (current) drug therapy | CPT/HCPCS: 99213 ==

== ENCOUNTER → 2018-04-02 | Outpatient (CLI) | payer BC ==
[~2018-04-02] MED LIST changes: +VENL75CA PO
--- NOTE | 2018-04-02 13:30 | Diagnostic Imaging Report ---
INDICATION: History of deep venous thrombosis while traveling. Documented on outside imaging. On anticoagulation therapy. TECHNIQUE: Grayscale with color-flow and Doppler waveform evaluation of the left lower extremity deep venous system. CORRELATION STUDY: None FINDINGS: Color and grayscale sonographic images demonstrate no intraluminal defect within the visualized portion of the common femoral, superficial femoral and/or popliteal veins to suggest thrombus formation. These vessels demonstrate normal response to compression and augmentation. No soft tissue fluid collection. IMPRESSION: 1. Negative for deep venous thrombosis of the left leg on current examination. Dictated by: Dictated on workstation # [id number]
== END ==
LOC: RAD 11:51
PROVIDERS: ATTEND Family Medicine
DX: I82.409 Acute embolism and thrombosis of unspecified deep veins of unspecified lower extremity (principal); Z79.01 Long term (current) use of anticoagulants

== ENCOUNTER → 2018-05-05 | Outpatient (CLI) | payer BC ==
[~2018-05-05] VITALS: Ht 177.8 cm; Wt 83.5 kg
[~2018-05-05] MED LIST changes: +CATHETER FLUSH 10 ML SYR IV PRN
--- NOTE | 2018-05-05 22:48 | STRESS TEST ---
DATE OF SERVICE: 05/05/2018 EXERCISE MYOVIEW STRESS TEST REPORT REFERRING PHYSICIAN: Raz Arevalo MD FINDINGS: Baseline heart rate is 65, baseline blood pressure 143/97. Baseline EKG is sinus rhythm with no ischemic changes. SUMMARY: The patient was injected with 10.12 mCi of technetium-99 Myoview and the resting images were obtained. Then, the patient started exercising with a baseline heart rate, blood pressure and EKG mentioned above. The patient was able to exercise for a total of 13 minutes on standard [place] protocol. With peak exercise level, blood pressure was 205/109. During recovery, heart rate and blood pressure returned to baseline. EKG returned to baseline. The resting and stress images were reviewed and compared in the short axis, horizontal long axis, and vertical long axis views. Review of the images showed diaphragmatic attenuation with good radiotracer uptake, no significant ischemia or infarction was seen. SSS is 2, SDS 1, TID value 0.86. On the gated images, the left ventricle appeared to be normal size with normal contractility. Calculated ejection fraction 61%. CONCLUSION: 1. Excellent exercise tolerance, a total of 13 minutes on standard [place] protocol, total of 13.5 METS achieving 90% of maximum expected heart rate. 2. Hypertensive response to exercise, achieving peak blood pressure of 205/109. 3. No arrhythmia or ischemia on EKG. 4. Diaphragmatic attenuation with no significant ischemia or infarction on SPECT images. 5. Normal left ventricular size with normal contractility. Calculated ejection fraction 61%. Job ID: [id number] DocumentID: [id number] Dictated Date: 05/05/2018 16:17:11 Station Mechanic Apprentice Date: 05/05/2018 22:47:17 Dictated By: ONEIDA AQUINO MD
== END ==
LOC: CARD 07:16
PROVIDERS: ATTEND Internal Medicine Cardiovascular Disease
DX: R07.89 Other chest pain (principal); I82.409 Acute embolism and thrombosis of unspecified deep veins of unspecified lower extremity; I26.99 Other pulmonary embolism without acute cor pulmonale
CPT/HCPCS: 78452; 93017

== ENCOUNTER → 2018-06-04 | Outpatient (CLI) | payer BC ==
[~2018-06-04] MED LIST changes: -CATHETER FLUSH 10 ML SYR IV PRN
--- NOTE | 2018-06-04 11:48 | Diagnostic Imaging Report ---
EXAMINATION: Ultrasound of the neck. INDICATION: Lymphadenopathy. FINDINGS: Reportedly, there is clinical concern regarding lymphadenitis of the face, head, and neck. The ultrasound examination of the neck shows no pathologically enlarged lymph nodes. IMPRESSION: 1. There is no adenopathy identified. 2. If clinical concern regarding an underlying abnormality persists, then CT of the neck with contrast would be recommended for further study. Dictated by: Dictated on workstation # [id number]
== END ==
LOC: RAD 10:43
PROVIDERS: ATTEND Family Medicine
DX: L04.0 Acute lymphadenitis of face, head and neck (principal)
CPT/HCPCS: 76536

== ENCOUNTER 2018-07-04 08:24 | Outpatient (RCR) | payer BC ==
[~2018-07-04 08:24] MED LIST changes: -RIVA20TA PO; +RIVA20TA2 PO
[2018-08-06] MEDS ORDERED: SERT50TA9 (13:00)
[2018-08-06] MEDS ORDERED: LORA1TAB (13:00)
[2018-08-06] MEDS ORDERED: SERT50TA2 PO (14:09)
== END 2018-10-02 | disposition home or self-care (01) ==
LOC: ONC 08:24
PROVIDERS: ATTEND Internal Medicine Hematology & Oncology
DX: I82.402 Acute embolism and thrombosis of unspecified deep veins of left lower extremity (principal); I26.99 Other pulmonary embolism without acute cor pulmonale; E78.5 Hyperlipidemia, unspecified; Z79.01 Long term (current) use of anticoagulants; Z79.899 Other long term (current) drug therapy
CPT/HCPCS: 99213

== ENCOUNTER 2018-08-06 12:34 | Emergency (ER) | payer BC ==
[~2018-08-06] VITALS: Ht 177.8 cm; Wt 81.6 kg
[~2018-08-06 12:34] MED LIST changes: +RIVA20TA PO; -RIVA20TA2 PO
[2018-08-06] MEDS ORDERED: ASPIRIN 81 MG CHEW (CHILDREN'S ASA) PO ONE (12:45)
[2018-08-06 12:48] LABS: BASOPHILS % (AUTO) 0 % (0-10); EOSINOPHILS # (AUTO) 0.2 10^3/uL (0.0-0.3); EOSINOPHILS % (AUTO) 2 % (0-10); HEMATOCRIT 44 % (40-54); HEMOGLOBIN 16.2 G/DL (13.3-17.7); LYMPHOCYTES # (AUTO) 1.7 X 10^3 (1.0-4.0); LYMPHOCYTES % (AUTO) 17 % (12-44); MEAN CORPUSCULAR HEMOGLOBIN 35 PG (25-34); MEAN CORPUSCULAR HGB CONC 37 G/DL (32-36); MEAN CORPUSCULAR VOLUME 93 FL (80-99); MEAN PLATELET VOLUME 8.9 FL (7.4-10.4); MONOCYTES # (AUTO) 0.7 X 10^3 (0.0-1.0); MONOCYTES % (AUTO) 7 % (0-12); NEUTROPHILS # (AUTO) 7.3 X 10^3 (1.8-7.8); NEUTROPHILS % (AUTO) 74 % (42-75); PLATELET COUNT 382 10^3/uL (130-400); RED CELL DISTRIBUTION WIDTH 12.6 % (10.0-14.5); WHITE BLOOD COUNT 9.8 10^3/uL (4.3-11.0)
[2018-08-06] MEDS ORDERED: SERT50TA9 (13:00)
[2018-08-06] MEDS ORDERED: LORA1TAB (13:00)
[2018-08-06 13:02] LABS: PROTHROMBIN TIME PATIENT 13.1 SEC (12.2-14.7)
[2018-08-06 13:08] LABS: ALANINE AMINOTRANSFERASE 52 U/L (0-55); ALBUMIN 4.8 GM/DL (3.2-4.5); ALKALINE PHOSPHATASE 87 U/L (40-136); BILIRUBIN,TOTAL 0.8 MG/DL (0.1-1.0); BUN/CREATININE RATIO 14; CALCIUM 9.9 MG/DL (8.5-10.1); CARBON DIOXIDE 26 MMOL/L (21-32); CHLORIDE 101 MMOL/L (98-107); CREATININE SERUM 0.88 MG/DL (0.60-1.30); GFR ESTIMATED > 60; GLUCOSE 107 MG/DL (70-105); MAGNESIUM 2.3 MG/DL (1.8-2.4); POTASSIUM 3.8 MMOL/L (3.6-5.0); SODIUM 140 MMOL/L (135-145); TOTAL PROTEIN 7.9 GM/DL (6.4-8.2)
--- NOTE | 2018-08-06 13:08 | ED Chest Pain ---
General Chief Complaint: Chest Pain Stated Complaint: CHEST PAIN Source: patient Exam Limitations: no limitations History of Present Illness Date Seen by Provider: Aug 06, 2018 Time Seen by Provider: 13:04 Initial Comments To ER with reports of chest pain that began this morning. The pain is all across his chest. He does not have shortness of breath. He does feel very anxious. He has a history of anxiety. He is also concerned because of his history of pulmonary embolism. He developed a DVT with progression to pulmonary embolism after a road trip in December 2017. He completed 3 months of treatment with xarelto completing that in March. He then had lower extremity venous Doppler in April showing patent veins without evidence of DVT. Due to his chest pain he also had a stress test in April 2018 showing no evidence of ischemia. He does not smoke, is otherwise healthy. This episode of pulmonary embolism significantly worsened his anxiety. His primary care provider started him on sertraline 25 milligrams daily 2 weeks ago. He's also been given lorazepam 1 mg tablets that he states that in the 2 weeks of having them he is only used 1.5 tablets Because of concern of addiction to this. He keeps one half tablet which is 0.5 mg lorazepam in his pocket in a pill case and so I had him take this during my conversation with him. Timing/Duration: intermittent Severity/Quality: moderate Location: central Radiation: no radiation Associated Symptoms: shortness of breath Allergies and Home Medications Allergies Coded Allergies: No Known Drug Allergies (Unverified , 01/16/18) Patient Home Medication List Home Medication List Reviewed: Yes Review of Systems Review of Systems Constitutional: see HPI; No chills EENTM: No Symptoms Reported Respiratory: No Symptoms Reported; Denies Cough, Denies Shortness of Air Cardiovascular: No Symptoms Reported Gastrointestinal: See HPI Genitourinary: No Symptoms Reported Musculoskeletal: no symptoms reported Skin: no symptoms reported Psychiatric/Neurological: No Symptoms Reported Endocrine: No Symptoms Reported Hematologic/Lymphatic: No Symptoms Reported Past Ievtizh-Nwexwo-Itrqgm Hx Patient Social History Alcohol Use: Occasionally Uses Number of Drinks Today: AA Alcohol Beverage of Choice: Beer Recreational Drug Use: No 2nd Hand Smoke Exposure: No Recent Hopitalizations: No Immunizations Up To Date Tetanus Booster (TDap): Unknown Seasonal Allergies Seasonal Allergies: No Past Medical History Surgeries: Yes Orthopedic Respiratory: Yes (DVT) Pulmonary Embolism Cardiac: Yes High Cholesterol Neurological: No Genitourinary: No Gastrointestinal: No Musculoskeletal: No Endocrine: No HEENT: No Cancer: No Psychosocial: Yes Anxiety Integumentary: No Family Medical History Heart Disease Physical Exam Vital Signs Vital Signs - First Documented 08/06/18 12:34 Temp 96.7 Pulse 70 Resp 18 B/P (MAP) 143/93 (110) Pulse Ox 99 O2 Delivery Room Air Capillary Refill : Height, Weight, BMI Height: 5'10.00" Weight: 184lbs. 0.0oz. 83.225690my; 26.4 BMI Method:Stated General Appearance: No Apparent Distress, WD/WN HEENT: PERRL/EOMI Respiratory: Lungs Clear, Normal Breath Sounds, No Accessory Muscle Use, No Respiratory Distress Cardiovascular: Regular Rate, Rhythm, Normal Peripheral Pulses Gastrointestinal: Normal Bowel Sounds, Non Tender, Soft Extremity: Normal Capillary Refill, Normal Inspection Neurologic/Psychiatric: Alert, Oriented x3 Skin: Normal Color, Warm/Dry Progress/Results/Core Measures Results/Orders Lab Results Laboratory Tests Test 08/06/18 12:40 Range/Units White Blood Count 9.8 4.3-11.0 10^3/uL Red Blood Count 4.68 4.35-5.85 10^6/uL Hemoglobin 16.2 13.3-17.7 G/DL Hematocrit 44 40-54 % Mean Corpuscular Volume 93 80-99 FL Mean Corpuscular Hemoglobin 35 H 25-34 PG Mean Corpuscular Hemoglobin Concent 37 H 32-36 G/DL Red Cell Distribution Width 12.6 10.0-14.5 % Platelet Count 382 130-400 10^3/uL Mean Platelet Volume 8.9 7.4-10.4 FL Neutrophils (%) (Auto) 74 42-75 % Lymphocytes (%) (Auto) 17 12-44 % Monocytes (%) (Auto) 7 0-12 % Eosinophils (%) (Auto) 2 0-10 % Basophils (%) (Auto) 0 0-10 % Neutrophils # (Auto) 7.3 1.8-7.8 X 10^3 Lymphocytes # (Auto) 1.7 1.0-4.0 X 10^3 Monocytes # (Auto) 0.7 0.0-1.0 X 10^3 Eosinophils # (Auto) 0.2 0.0-0.3 10^3/uL Basophils # (Auto) 0.0 0.0-0.1 10^3/uL Prothrombin Time 13.1 12.2-14.7 SEC INR Comment 1.0 0.8-1.4 Activated Partial Thromboplast Time 33 24-35 SEC D-Dimer 0.39 0.00-0.49 UG/ML Sodium Level 140 135-145 MMOL/L Potassium Level 3.8 3.6-5.0 MMOL/L Chloride Level 101 98-107 MMOL/L Carbon Dioxide Level 26 21-32 MMOL/L Anion Gap 13 5-14 MMOL/L Blood Urea Nitrogen 12 7-18 MG/DL Creatinine 0.88 0.60-1.30 MG/DL Estimat Glomerular Filtration Rate > 60 BUN/Creatinine Ratio 14 Glucose Level 107 H 70-105 MG/DL Calcium Level 9.9 8.5-10.1 MG/DL Corrected Calcium 8.5-10.1 MG/DL Magnesium Level 2.3 1.8-2.4 MG/DL Total Bilirubin 0.8 0.1-1.0 MG/DL Aspartate Amino Transf (AST/SGOT) 28 5-34 U/L Alanine Aminotransferase (ALT/SGPT) 52 0-55 U/L Alkaline Phosphatase 87 40-136 U/L Myoglobin 31.7 10.0-92.0 NG/ML Troponin I < 0.028 <0.028 NG/ML B-Type Natriuretic Peptide < 10.0 <100.0 PG/ML Total Protein 7.9 6.4-8.2 GM/DL Albumin 4.8 H 3.2-4.5 GM/DL My Orders Orders - MARY SNYDER APRN Aspirin Chewable Tablet (Baby Aspirin Ch (08/06/18 12:45) Cbc With Automated Diff (08/06/18 12:36) Magnesium (08/06/18 12:36) Chest 1 View, Ap/Pa Only (08/06/18 12:36) Ekg Tracing (08/06/18 12:36) Cardiac Profile 1 (08/06/18 12:36) Comprehensive Metabolic Panel (08/06/18 12:36) Myoglobin Serum (08/06/18 12:36) Protime With Inr (08/06/18 12:36) Partial Thromboplastin Time (08/06/18 12:36) O2 (08/06/18 12:36) Monitor-Rhythm Ecg Trace Only (08/06/18 12:36) Lipid Panel (08/07/18 06:00) Saline Lock/Iv-Start (08/06/18 12:36) BNP (08/06/18 12:36) Fibrin Degradation Products (08/06/18 13:09) Vital Signs/I&O 08/06/18 12:34 Temp 96.7 Pulse 70 Resp 18 B/P (MAP) 143/93 (110) Pulse Ox 99 O2 Delivery Room Air Departure Communication (Admissions) 1407-now that he is calm, his chest pain is gone. He states that he has not been able to sleep for the past few nights, he goes to bed at 9 PM but doesn't actually go to sleep until about 1 AM and then he wakes up between 4 and 5 AM. States that he is only getting 3-4 hours of sleep per night. I discussed with him that this was worsening his anxiety. Discussed with him the need to take his lorazepam at least at bedtime if he doesn't want to take during the day. He was given a prescription for Zoloft 50 mg tablets but has been cutting them in half. Advised him to increase this to the full tablet daily. Impression Primary Impression: Anxiety Disposition: 01 HOME, SELF-CARE Condition: Stable Departure-Patient Inst. Decision time for Depature: 14:01 Referrals: DI BECKFORD MD (PCP/Family) Primary Care Physician Patient Instructions: Chest Pain (DC) Add. Discharge Instructions: 1. Increase your sertraline (Zoloft) to 2 tablets daily this would be 50 mg daily. I've also given you a prescription for more at the 50 mg dosage. You need sleep. This will help as much as anything with your anxiety. Take one half to one whole tablet of the lorazepam one hour before bedtime for the next few nights to help you sleep. All discharge instructions reviewed with patient and/ or family. Voiced understanding. Scripts Sertraline HCl (Zoloft) 50 Mg Tablet 50 MG PO DAILY, #20 TAB Prov: MARY SNYDER APRN 08/06/18 MARY SNYDER APRN Aug 06, 2018 13:08
[2018-08-06 13:15] LABS: MYOGLOBIN SERUM 31.7 NG/ML (10.0-92.0)
--- NOTE | 2018-08-06 13:31 | Diagnostic Imaging Report ---
INDICATION: Chest pain. TIME OF EXAM: 01:19 p.m. Comparison is made with prior chest from 03/13/2018. The heart size is normal. The pulmonary vascularity is unremarkable. The lungs are clear. No infiltrate, effusion or pneumothorax is detected. IMPRESSION: No acute cardiopulmonary process is detected. Dictated by: Dictated on workstation # [id number]
[2018-08-06] MEDS ORDERED: SERT50TA2 PO (14:09)
[2018-08-06 14:13] VITALS: BP 124/82
== END 2018-08-06 14:20 | disposition home or self-care (01) ==
LOC: EDUNIT# 12:34 → ER 12:36
DX: F41.9 Anxiety disorder, unspecified (principal); E78.00 Pure hypercholesterolemia, unspecified; Z86.711 Personal history of pulmonary embolism; Z86.718 Personal history of other venous thrombosis and embolism
CPT/HCPCS: 36415; 71045; 80053; 83735; 83874; 83880; 84484; 85025; 85379; 85610; 85730; 93005; 93041

== ENCOUNTER → 2018-09-02 | Outpatient (CLI) | payer SELFPAY ==
[~2018-09-02] MED LIST changes: +LORA1TAB; +SERT50TA2 PO; +SERT50TA9
== END ==
LOC: CARD 08:49
PROVIDERS: ATTEND Family Medicine
DX: R07.9 Chest pain, unspecified (principal)
CPT/HCPCS: 93005

== ENCOUNTER 2018-09-06 06:56 | Emergency (ER) | payer SELFPAY ==
[~2018-09-06] VITALS: Ht 180.3 cm; Wt 81.6 kg
[2018-09-06 07:43] LABS: BASOPHILS % (AUTO) 0 % (0-10); EOSINOPHILS # (AUTO) 0.1 10^3/uL (0.0-0.3); EOSINOPHILS % (AUTO) 2 % (0-10); HEMATOCRIT 40 % (40-54); HEMOGLOBIN 14.9 G/DL (13.3-17.7); LYMPHOCYTES # (AUTO) 1.3 X 10^3 (1.0-4.0); LYMPHOCYTES % (AUTO) 26 % (12-44); MEAN CORPUSCULAR HEMOGLOBIN 35 PG (25-34); MEAN CORPUSCULAR HGB CONC 37 G/DL (32-36); MEAN CORPUSCULAR VOLUME 93 FL (80-99); MEAN PLATELET VOLUME 9.2 FL (7.4-10.4); MONOCYTES # (AUTO) 0.4 X 10^3 (0.0-1.0); MONOCYTES % (AUTO) 9 % (0-12); NEUTROPHILS # (AUTO) 3.1 X 10^3 (1.8-7.8); NEUTROPHILS % (AUTO) 63 % (42-75); PLATELET COUNT 234 10^3/uL (130-400); RED CELL DISTRIBUTION WIDTH 12.8 % (10.0-14.5); WHITE BLOOD COUNT 4.9 10^3/uL (4.3-11.0)
[2018-09-06 08:02] LABS: ALANINE AMINOTRANSFERASE 29 U/L (0-55); ALBUMIN 4.4 GM/DL (3.2-4.5); ALKALINE PHOSPHATASE 49 U/L (40-136); BILIRUBIN,TOTAL 0.6 MG/DL (0.1-1.0); BUN/CREATININE RATIO 12; CALCIUM 9.4 MG/DL (8.5-10.1); CARBON DIOXIDE 24 MMOL/L (21-32); CHLORIDE 104 MMOL/L (98-107); CREATININE SERUM 0.92 MG/DL (0.60-1.30); GFR ESTIMATED > 60; GLUCOSE 178 MG/DL (70-105); POTASSIUM 4.2 MMOL/L (3.6-5.0); SODIUM 138 MMOL/L (135-145); TOTAL PROTEIN 6.8 GM/DL (6.4-8.2)
--- NOTE | 2018-09-06 08:13 | ED General ---
General Chief Complaint: Chest Wall/Rib Pain Stated Complaint: CHEST DISCOMFORT Nursing Triage Note: Ambulatory to rm 5. Pt reports pain, tingling and numbness in the left nipple that has persisted for 1.5 weeks. Pt denies radiation and believes this is probably nothing but is concerned. Pt reports calling Dr. Durbin's office yesterday and speaking with Tish who voiced no concern. Pt reports since pain has persisted pt wanted to be checked out. Pt reports having anxiety since having previous PE. Nursing Sepsis Screen: No Definite Risk Source of Information: Patient Exam Limitations: No Limitations History of Present Illness Date Seen by Provider: Sep 06, 2018 Time Seen by Provider: 07:50 Initial Comments The patient is a 43-year-old white male known to me. He reports that he has been having left-sided chest pain for more than a week. He was previously here on August 12 with a similar complaint. This was thought to be anxiety. At that time he was having sleep disturbance and this has been ameliorated. He reports that he has a high energy personality and has been prone to anxiety. This seems to have increased after he developed DVT on a family vacation trip last year and then suffered a pulmonary embolus. He took anticoagulants for 3+ months and has had no further incidents but this weighs upon him. He also reports that he runs each evening and incidentally had been training for a marathon during the time frame When he developed a DVT. He does not smoke. He exercises regularly. He is not diabetic. His father and grandfather had heart attacks but also smoked, drank alcohol, and did not have access to statins. Both in their mid 70s. He has seen Dr. Durbin and had a workup short of angiography which was all satisfactory. He reports that this may pull pain has been present for at least a week and a half and is weighing on his mind Timing/Duration: 1 Week Severity: Mild Allergies and Home Medications Allergies Coded Allergies: No Known Drug Allergies (Unverified , 01/16/18) Home Medications Sertraline HCl 50 Mg Tablet, 50 MG PO DAILY Prescribed by: MARY SNYDER on 08/06/18 2108 Patient Home Medication List Home Medication List Reviewed: Yes Review of Systems Review of Systems Constitutional: see HPI EENTM: no symptoms reported Respiratory: no symptoms reported Cardiovascular: see HPI, chest pain Gastrointestinal: no symptoms reported Genitourinary: no symptoms reported Musculoskeletal: no symptoms reported Skin: no symptoms reported Psychiatric/Neurological: Anxiety Hematologic/Lymphatic: No Symptoms Reported Past Ttsaswb-Cjaops-Rhmurx Hx Patient Social History Alcohol Use: Occasionally Uses Number of Drinks Today: AA Alcohol Beverage of Choice: Beer Recreational Drug Use: No 2nd Hand Smoke Exposure: No Recent Foreign Travel: No Contact w/Someone Who Travel: No Recent Infectious Disease Expo: No Recent Hopitalizations: No Physical Abuse: No Sexual Abuse: No Immunizations Up To Date Tetanus Booster (TDap): Unknown Seasonal Allergies Seasonal Allergies: No Past Medical History Surgeries: Yes Orthopedic Respiratory: Yes (DVT) Pulmonary Embolism Cardiac: Yes High Cholesterol Neurological: No Genitourinary: No Gastrointestinal: No Musculoskeletal: No Endocrine: No HEENT: No Cancer: No Psychosocial: Yes Anxiety Integumentary: No Family Medical History Heart Disease Physical Exam Vital Signs Vital Signs - First Documented 09/06/18 07:05 Temp 96.3 Pulse 64 Resp 19 B/P (MAP) 134/91 (105) Pulse Ox 100 O2 Delivery Room Air Capillary Refill : Less Than 3 Seconds Height, Weight, BMI Height: 5'11.00" Weight: 180lbs. 0.0oz. 81.387509iu; 26.4 BMI Method:Stated General Appearance: Anxious Eyes: Bilateral Eye Normal Inspection HEENT: Normal ENT Inspection Neck: Normal Inspection Respiratory: Chest Non Tender, Lungs Clear, Normal Breath Sounds, No Accessory Muscle Use, No Respiratory Distress Cardiovascular: Regular Rate, Rhythm, No Edema, No Gallop, No JVD, No Murmur, Normal Peripheral Pulses Gastrointestinal: Normal Bowel Sounds, No Organomegaly, No Pulsatile Mass, Non Tender, Soft Back: Normal Inspection, No CVA Tenderness, No Vertebral Tenderness Neurologic/Psychiatric: Alert, Oriented x3, No Motor/Sensory Deficits, Normal Mood/Affect Skin: Normal Color, Warm/Dry Lymphatic: No Adenopathy Comments Speech is rapid. Palpation of the left nipple shows no nodule or tenderness to palpation Progress/Results/Core Measures Suspected Sepsis Recent Fever Within 48 Hours: No Infection Criteria Present: None New/Unexplained Altered Menta: No Sepsis Screen: No Definite Risk SIRS Temperature:96.3 Pulse: 64 Respiratory Rate: 19 Laboratory Tests 09/06/18 07:30: White Blood Count 4.9 Blood Pressure 134 /91 Mean: 105 Laboratory Tests 09/06/18 07:30: Creatinine 0.92, Platelet Count 234, Total Bilirubin 0.6 Results/Orders Lab Results Laboratory Tests Test 09/06/18 07:30 Range/Units White Blood Count 4.9 4.3-11.0 10^3/uL Red Blood Count 4.30 L 4.35-5.85 10^6/uL Hemoglobin 14.9 13.3-17.7 G/DL Hematocrit 40 40-54 % Mean Corpuscular Volume 93 80-99 FL Mean Corpuscular Hemoglobin 35 H 25-34 PG Mean Corpuscular Hemoglobin Concent 37 H 32-36 G/DL Red Cell Distribution Width 12.8 10.0-14.5 % Platelet Count 234 130-400 10^3/uL Mean Platelet Volume 9.2 7.4-10.4 FL Neutrophils (%) (Auto) 63 42-75 % Lymphocytes (%) (Auto) 26 12-44 % Monocytes (%) (Auto) 9 0-12 % Eosinophils (%) (Auto) 2 0-10 % Basophils (%) (Auto) 0 0-10 % Neutrophils # (Auto) 3.1 1.8-7.8 X 10^3 Lymphocytes # (Auto) 1.3 1.0-4.0 X 10^3 Monocytes # (Auto) 0.4 0.0-1.0 X 10^3 Eosinophils # (Auto) 0.1 0.0-0.3 10^3/uL Basophils # (Auto) 0.0 0.0-0.1 10^3/uL Sodium Level 138 135-145 MMOL/L Potassium Level 4.2 3.6-5.0 MMOL/L Chloride Level 104 98-107 MMOL/L Carbon Dioxide Level 24 21-32 MMOL/L Anion Gap 10 5-14 MMOL/L Blood Urea Nitrogen 11 7-18 MG/DL Creatinine 0.92 0.60-1.30 MG/DL Estimat Glomerular Filtration Rate > 60 BUN/Creatinine Ratio 12 Glucose Level 178 H 70-105 MG/DL Calcium Level 9.4 8.5-10.1 MG/DL Corrected Calcium 9.1 8.5-10.1 MG/DL Total Bilirubin 0.6 0.1-1.0 MG/DL Aspartate Amino Transf (AST/SGOT) 23 5-34 U/L Alanine Aminotransferase (ALT/SGPT) 29 0-55 U/L Alkaline Phosphatase 49 40-136 U/L Troponin I < 0.028 <0.028 NG/ML Total Protein 6.8 6.4-8.2 GM/DL Albumin 4.4 3.2-4.5 GM/DL My Orders Orders - GLEN KENNY MD Ekg Tracing (09/06/18 07:16) Cbc With Automated Diff (09/06/18 07:16) Comprehensive Metabolic Panel (09/06/18 07:16) Troponin I (09/06/18 07:16) Vital Signs/I&O 09/06/18 07:05 Temp 96.3 Pulse 64 Resp 19 B/P (MAP) 134/91 (105) Pulse Ox 100 O2 Delivery Room Air Capillary Refill : Less Than 3 Seconds Blood Pressure Mean: 105 Departure Communication (Admissions) Laboratory was normal save elevation in blood sugar. The patient has eaten. Impression Primary Impression: Rib pain Disposition: HOME, SELF-CARE Condition: Stable/Unchanged Departure-Patient Inst. Decision time for Depature: 08:23 Referrals: DI BECKFORD MD (PCP/Family) Primary Care Physician Add. Discharge Instructions: All discharge instructions reviewed with patient and/or family. Voiced understanding. Relax. Consider seeing a psychologist for behavioral modification and nonmedication approaches to reducing anxiety. Use your benzodiazepines sparingly. SEE your provider as necessary GLEN KENNY MD Sep 06, 2018 08:13
[2018-09-06 08:58] VITALS: BP 119/82
== END 2018-09-06 09:00 | disposition home or self-care (01) ==
LOC: EDUNIT# 06:56 → ER 06:58
DX: R07.81 Pleurodynia (principal); E78.00 Pure hypercholesterolemia, unspecified; F41.9 Anxiety disorder, unspecified; Z82.49 Family history of ischemic heart disease and other diseases of the circulatory system; Z86.718 Personal history of other venous thrombosis and embolism; Z86.711 Personal history of pulmonary embolism
CPT/HCPCS: 36415; 80053; 84484; 85025; 93005

== ENCOUNTER 2018-11-18 05:11 | Emergency (ER) | payer SELFPAY ==
[~2018-11-18] VITALS: Ht 177.8 cm; Wt 81.6 kg
[~2018-11-18 05:11] MED LIST changes: -RIVA20TA PO; +RIVA20TA2 PO
--- NOTE | 2018-11-18 06:35 | ED Psychosocial ---
General Chief Complaint: Psych/Social Disorder Stated Complaint: CP, BACK & SHOULDER PAIN,ANXIETY Nursing Triage Note: Pt complaining of anxiety that has worsened since . Pt recently tried to stop taking his antidepressants under the supervision of a doctor, but it has caused increased anxiety. Source: patient Exam Limitations: no limitations History of Present Illness Date Seen by Provider: November 18, 2018 Time Seen by Provider: 05:15 Initial Comments Mr. Jerome presents to the emergency room feeling rather anxious. He has been unable to sleep well tonight. He took lorazepam 02:00 last night and attempt to treat his anxiety. He has been on either Zoloft or Celexa for many years. He recently decided to try going off of SSRI therapy area and this did not go well for him. He tried going back on Zoloft and switch to Celexa. He had bizarre dreams on Celexa and switch back to Zoloft. He has switched back and forth between these medications multiple times. Patient had a DVT last summer. Since then he has struggled with anxiety, especially in regard to fear about his health. He completed 3 months of anticoagulation and is presently not anticoagulated. He is also very stressed with other personal situations. He reports feeling a tingling discomfort in his chest but no true chest pain. He has had a cardiac evaluation in the recent past including a stress test last year.. Allergies and Home Medications Allergies Coded Allergies: No Known Drug Allergies (Unverified , 01/16/18) Home Medications Sertraline HCl 50 Mg Tablet, 50 MG PO DAILY Prescribed by: MARY SNYDER on 08/06/18 0025 Patient Home Medication List Home Medication List Reviewed: Yes Review of Systems Constitutional: no symptoms reported EENTM: no symptoms reported Respiratory: no symptoms reported Cardiovascular: see HPI Gastrointestinal: no symptoms reported Genitourinary: no symptoms reported Musculoskeletal: no symptoms reported Skin: no symptoms reported Psychiatric/Neurological: See HPI Past Wjqjmfy-Fytore-Fmymrk Hx Patient Social History Alcohol Use: Rarely Uses Number of Drinks Today: AA Alcohol Beverage of Choice: Beer Recreational Drug Use: No 2nd Hand Smoke Exposure: No Recent Foreign Travel: No Contact w/Someone Who Travel: No Recent Infectious Disease Expo: No Recent Hopitalizations: No Immunizations Up To Date Tetanus Booster (TDap): Unknown Seasonal Allergies Seasonal Allergies: No Past Medical History Surgeries: Yes Orthopedic Respiratory: Yes (DVT) Pulmonary Embolism Cardiac: Yes High Cholesterol Neurological: No Genitourinary: No Gastrointestinal: No Musculoskeletal: No Endocrine: No HEENT: No Cancer: No Psychosocial: Yes Anxiety Integumentary: No Family Medical History Heart Disease Physical Exam Vital Signs - First Documented 11/18/18 05:15 Temp 96.0 Pulse 65 Resp 18 B/P (MAP) 137/99 (112) Pulse Ox 98 O2 Delivery Room Air Capillary Refill : Less Than 3 Seconds Height, Weight, BMI Height: 5'10.00" Weight: 180lbs. 0.0oz. 81.172895bb; 26.4 BMI Method:Stated General Appearance: WD/WN, mild distress HEENT: PERRL/EOMI, normal ENT inspection Neck: normal inspection Respiratory: lungs clear, normal breath sounds, no respiratory distress, no accessory muscle use Cardiovascular: regular rate, rhythm, no edema, no murmur Gastrointestinal: normal bowel sounds, non tender, soft Extremities: normal inspection, no pedal edema Neurologic/Psychiatric: technology lead II-XII nml as tested, no motor/sensory deficits, alert, oriented x 3, other (anxious and stressed) Appearance/Memory: appropriate appearance, appropriate insight Behavior/Eye Contact: cooperative, good eye contact, normal speech Skin: normal color, warm/dry Progress/Results/Core Measures Results/Orders Vital Signs/I&O Blood Pressure Mean: 112 Progress Progress Note : Progress Note Vital signs are stable. Patient did not have any true chest pain or shortness of breath. Patient is dealing mainly with anxiety and sleep disturbance. We discussed the need to have consistent medication therapy rather than oscillating between medications. I also counseled him regarding anxiety management. I encouraged him to stay with Zoloft for at least several weeks to determine its efficacy and to allow balanced blood levels. He is to follow-up with his primary care provider. Departure Impression Primary Impression: Anxiety Disposition: 01 HOME, SELF-CARE Condition: Improved Departure-Patient Inst. Decision time for Depature: 06:32 Referrals: DI BECKFORD MD (PCP/Family) Primary Care Physician Patient Instructions: Anxiety, Adult (DC) Add. Discharge Instructions: Continue with Zoloft 25 mg daily. Continue with healthy lifestyle activities such as regular exercise and a well- balanced diet. Follow-up with Dr. Beckford in 1-2 weeks. Use your lorazepam as prescribed for more extreme episodes of anxiety, especially if you cannot sleep. Return to the emergency room, contact your doctor, or call [phone] ([phone]) if you have worsening issues with anxiety. Return to the emergency room if you have worsening chest pain or shortness of breath. All discharge instructions reviewed with patient and/or family. Voiced understanding. Copy Copies To 1: DI BECKFORD MD, JOSHUA T MD November 18, 2018 06:34
[2018-11-18 06:47] VITALS: BP 128/93
== END 2018-11-18 06:48 | disposition home or self-care (01) ==
LOC: EDUNIT# 05:11 → ER 05:13
DX: F41.9 Anxiety disorder, unspecified (principal); E78.00 Pure hypercholesterolemia, unspecified; Z82.49 Family history of ischemic heart disease and other diseases of the circulatory system; Z86.718 Personal history of other venous thrombosis and embolism; Z86.711 Personal history of pulmonary embolism
CPT/HCPCS: 99283

== ENCOUNTER 2018-12-10 06:41 | Emergency (ER) | payer SELFPAY ==
[~2018-12-10] VITALS: Ht 180.3 cm; Wt 81.6 kg
--- OUTSIDE RECORDS SUMMARY | 2018-12-10 06:47 | XMS REPORT | Continuity of Care Document ---
Author Organization Unknown Address Unknown Allergies Active Description Code Type Severity Reaction Onset Reported/Identified Relationship to Patient Clinical Status Yes No Known Drug Allergies [id number] Drug Allergy Unknown N/A 01/16/2018 Medications There is no data. Problems Date Dx Coded Attending Type Code Diagnosis Diagnosed By 11/28/2016 MOOK MILLER MD, Ot K42.9 UMBILICAL HERNIA WITHOUT OBSTRUCTION OR 11/28/2016 MOOK MILLER MD, Ot K57.30 DVRTCLOS OF LG INT W/O PERFORATION OR AB 11/28/2016 MOOK MILLER MD Ot R31.0 GROSS HEMATURIA 01/16/2018 ELLIS BOYD MD Ot E78.00 PURE HYPERCHOLESTEROLEMIA, UNSPECIFIED 01/16/2018 ELLIS BOYD MD, Ot F41.9 ANXIETY DISORDER, UNSPECIFIED 01/16/2018 ELLIS BOYD MD Ot I82.402 ACUTE EMBOLISM AND THOMBOS UNSP DEEP VEI 01/16/2018 ELLIS BOYD MD Ot M79.662 PAIN IN LEFT LOWER LEG 01/16/2018 ELLIS BOYD MD Ot Z79.01 CASH ROOM CLERK (CURRENT) USE OF ANTICOAGULANT 01/20/2018 ELLIS BOYD MD Ot E78.00 PURE HYPERCHOLESTEROLEMIA, UNSPECIFIED 01/20/2018 ELLIS BODY MD, Ot F41.9 ANXIETY DISORDER, UNSPECIFIED 01/20/2018 ELLIS BOYD MD Ot I82.402 ACUTE EMBOLISM AND THOMBOS UNSP DEEP VEI 01/20/2018 ELLIS BOYD MD Ot M79.662 PAIN IN LEFT LOWER LEG 01/20/2018 ELLIS BOYD MD Ot Z79.01 CORRECTION (CURRENT) USE OF ANTICOAGULANT 01/20/2018 MARY SNYDER APRN Ot E78.00 PURE HYPERCHOLESTEROLEMIA, UNSPECIFIED 01/20/2018 MARY SNYDER APRN Ot F41.9 ANXIETY DISORDER, UNSPECIFIED 01/20/2018 MARY SNYDER APRN Ot I26.99 OTHER PULMONARY EMBOLISM WITHOUT ACUTE C 01/20/2018 MARY SNYDER APRN Ot R07.89 OTHER CHEST PAIN 01/20/2018 MARY SNYDER APRN Ot Z79.01 CASH ROOM CLERK (CURRENT) USE OF ANTICOAGULANT 01/20/2018 MARY SNYDER APRN Ot 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 02/03/2018 Ot E78.00 PURE HYPERCHOLESTEROLEMIA, UNSPECIFIED 02/03/2018 Ot F41.9 ANXIETY DISORDER, UNSPECIFIED 02/03/2018 Ot R07.89 OTHER CHEST PAIN 02/03/2018 Ot 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 02/21/2018 NOEMY MURDOCK MD Ot E78.5 HYPERLIPIDEMIA, UNSPECIFIED 02/21/2018 NOEMY MURDOCK MD Ot I26.99 OTHER PULMONARY EMBOLISM WITHOUT ACUTE C 02/21/2018 NOEMY MURDOCK MD Ot I82.402 ACUTE EMBOLISM AND THOMBOS UNSP DEEP VEI 02/21/2018 NOEMY MURDOCK MD Ot Z79.01 CORRECTION (CURRENT) USE OF ANTICOAGULANT 02/21/2018 NOEMY MURDOCK MD Ot Z79.899 OTHER CORRECTION (CURRENT) DRUG THERAPY 03/05/2018 NOEMY MURDOCK MD Ot E78.5 HYPERLIPIDEMIA, UNSPECIFIED 03/05/2018 NOEMY MURDOCK MD Ot I26.99 OTHER PULMONARY EMBOLISM WITHOUT ACUTE C 03/05/2018 NOEMY MURDOCK MD Ot I82.402 ACUTE EMBOLISM AND THOMBOS UNSP DEEP VEI 03/05/2018 NOEMY MURDOCK MD Ot Z79.01 CASH ROOM CLERK (CURRENT) USE OF ANTICOAGULANT 03/05/2018 NOEMY MURDOCK MD Ot Z79.899 OTHER CORRECTION (CURRENT) DRUG THERAPY 03/13/2018 MARY SNYDER APRN Ot E78.00 PURE HYPERCHOLESTEROLEMIA, UNSPECIFIED 03/13/2018 MARY SNYDER APRN Ot F41.9 ANXIETY DISORDER, UNSPECIFIED 03/13/2018 MARY SNYDER APRN Ot R07.89 OTHER CHEST PAIN 03/13/2018 MARY SNYDER APRN Ot Z79.01 CORRECTION (CURRENT) USE OF ANTICOAGULANT 03/13/2018 MARY SNYDER APRN Ot 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 03/17/2018 SNYDER, PETER J MAIL AGENT Ot E78.00 PURE HYPERCHOLESTEROLEMIA, UNSPECIFIED 03/17/2018 MARY SNYDER MAIL AGENT Ot F41.9 ANXIETY DISORDER, UNSPECIFIED 03/17/2018 MARY SNYDER MAIL AGENT Ot R07.89 OTHER CHEST PAIN 03/17/2018 MARY SNYDER MAIL AGENT Ot Z79.01 CASH ROOM CLERK (CURRENT) USE OF ANTICOAGULANT 03/17/2018 MARY SNYDER MAIL AGENT Ot 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 03/21/2018 DI BECKFORD MD Ot 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00 PURE HYPERCHOLESTEROLEMIA, UNSPECIFIED 03/24/2018 DUNG GAINES MD Ot F41.0 PANIC DISORDER [EPISODIC PAROXYSMAL ANXI 03/24/2018 DUNG GAINES MD Ot F41.9 ANXIETY DISORDER, UNSPECIFIED 03/24/2018 DUNG GAINES MD Ot Z79.01 CASH ROOM CLERK (CURRENT) USE OF ANTICOAGULANT 03/24/2018 DUNG GAINES MD Ot 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 03/26/2018 DUNG GAINES MD Ot E78.00 PURE HYPERCHOLESTEROLEMIA, UNSPECIFIED 03/26/2018 DUNG GAINES MD Ot F41.0 PANIC DISORDER [EPISODIC PAROXYSMAL ANXI 03/26/2018 DUNG GAINES MD Ot F41.9 ANXIETY DISORDER, UNSPECIFIED 03/26/2018 DUNG GAINES MD Ot Z79.01 CASH ROOM CLERK (CURRENT) USE OF ANTICOAGULANT 03/26/2018 DUNG GAINES MD Ot 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 03/30/2018 DUNG GAINES MD Ot E78.00 PURE HYPERCHOLESTEROLEMIA, UNSPECIFIED 03/30/2018 DUNG GAINES MD Ot F41.0 PANIC DISORDER [EPISODIC PAROXYSMAL ANXI 03/30/2018 DUNG GAINES MD Ot F41.9 ANXIETY DISORDER, UNSPECIFIED 03/30/2018 DUNG GAINES MD Ot Z79.01 CASH ROOM CLERK (CURRENT) USE OF ANTICOAGULANT 03/30/2018 DUNG GAINES MD Ot 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 04/02/2018 DI BECKFORD MD Ot 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, 04/03/2018 DI BECKFORD MD, Ot I82.409 ACUTE EMBOLISM AND THOMBOS UNSP DEEP VN 04/03/2018 DI BECKFORD MD, Ot Z79.01 CORRECTION (CURRENT) USE OF ANTICOAGULANT 04/08/2018 DI BECKFORD MD, Ot I82.409 ACUTE EMBOLISM AND THOMBOS UNSP DEEP VN 04/08/2018 DI BECKFORD MD, Ot Z79.01 CASH ROOM CLERK (CURRENT) USE OF ANTICOAGULANT 05/07/2018 ONEIDA AQUINO MD Ot I26.99 OTHER PULMONARY EMBOLISM WITHOUT ACUTE C 05/07/2018 ONEIDA AQUINO MD Ot I82.409 ACUTE EMBOLISM AND THOMBOS UNSP DEEP VN 05/07/2018 ONEIDA AQUINO MD Ot R07.89 OTHER CHEST PAIN 06/02/2018 DI BECKFORD MD, Ot I82.402 ACUTE EMBOLISM AND THOMBOS UNSP DEEP VEI 06/02/2018 DI BECKFORD MD, Ot Z79.01 CORRECTION (CURRENT) USE OF ANTICOAGULANT 06/05/2018 DI BECKFORD MD Ot L04.0 ACUTE LYMPHADENITIS OF FACE, HEAD AND NE 06/20/2018 DI BECKFORD MD Ot L04.0 ACUTE LYMPHADENITIS OF FACE, HEAD AND NE 06/27/2018 DI BECKFORD MD, Ot I82.402 ACUTE EMBOLISM AND THOMBOS UNSP DEEP VEI 06/27/2018 DI BECKFORD MD, Ot Z79.01 CORRECTION (CURRENT) USE OF ANTICOAGULANT 07/01/2018 NOEMY MURDOCK MD Ot E78.5 HYPERLIPIDEMIA, UNSPECIFIED 07/01/2018 NOEMY MURDOCK MD Ot I26.99 OTHER PULMONARY EMBOLISM WITHOUT ACUTE C 07/01/2018 NOEMY MURDOCK MD Ot I82.402 ACUTE EMBOLISM AND THOMBOS UNSP DEEP VEI 07/01/2018 NOEMY MURDOCK MD Ot Z79.01 CASH ROOM CLERK (CURRENT) USE OF ANTICOAGULANT 07/01/2018 NOEMY MURDOCK MD, Ot Z79.899 OTHER CASH ROOM CLERK (CURRENT) DRUG THERAPY 07/03/2018 NOEMY MURDOCK MD Ot E78.5 HYPERLIPIDEMIA, UNSPECIFIED 07/03/2018 NOEMY MURDOCK MD Ot I26.99 OTHER PULMONARY EMBOLISM WITHOUT ACUTE C 07/03/2018 NOEMY MURDOCK MD, Ot I82.402 ACUTE EMBOLISM AND THOMBOS UNSP DEEP VEI 07/03/2018 NOEMY MURDOCK MD, Ot Z79.01 CASH ROOM CLERK (CURRENT) USE OF ANTICOAGULANT 07/03/2018 NOEMY MURDOCK MD, Ot Z79.899 OTHER CASH ROOM CLERK (CURRENT) DRUG THERAPY 07/04/2018 NOEMY MURDOCK MD, Ot E78.5 HYPERLIPIDEMIA, UNSPECIFIED 07/04/2018 NOEMY MURDOCK MD Ot I26.99 OTHER PULMONARY EMBOLISM WITHOUT ACUTE C 07/04/2018 NOEMY MURDOCK MD, Ot I82.402 ACUTE EMBOLISM AND THOMBOS UNSP DEEP VEI 07/04/2018 NOEMY MURDOCK MD, Ot Z79.01 CASH ROOM CLERK (CURRENT) USE OF ANTICOAGULANT 07/04/2018 NOEMY MURDOCK MD, Ot Z79.899 OTHER CASH ROOM CLERK (CURRENT) DRUG THERAPY 07/07/2018 NOEMY MURDOCK MD, Ot E78.5 HYPERLIPIDEMIA, UNSPECIFIED 07/07/2018 NOEMY MURDOCK MD Ot I26.99 OTHER PULMONARY EMBOLISM WITHOUT ACUTE C 07/07/2018 NOEMY MURDOCK MD, Ot I82.402 ACUTE EMBOLISM AND THOMBOS UNSP DEEP VEI 07/07/2018 NOEMY MURDOCK MD, Ot Z79.01 CORRECTION (CURRENT) USE OF ANTICOAGULANT 07/07/2018 NOEMY MURDOCK MD, Ot Z79.899 OTHER CASH ROOM CLERK (CURRENT) DRUG THERAPY 08/06/2018 MOOK MILLER MD Ot K42.9 UMBILICAL HERNIA WITHOUT OBSTRUCTION OR 08/06/2018 MOOK MILLER MD, Ot K57.30 DVRTCLOS OF LG INT W/O PERFORATION OR AB 08/06/2018 MOOK MILLER MD Ot R31.0 GROSS HEMATURIA 08/06/2018 ONEIDA AQUINO MD Ot I26.99 OTHER PULMONARY EMBOLISM WITHOUT ACUTE C 08/06/2018 ONEIDA AQUINO MD Ot I82.409 ACUTE EMBOLISM AND THOMBOS UNSP DEEP VN 08/06/2018 ONEIDA AQUINO MD Ot R07.89 OTHER CHEST PAIN 08/06/2018 DI BECKFORD MD Ot 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, 08/06/2018 DI BECKFORD MD Ot I82.402 ACUTE EMBOLISM AND THOMBOS UNSP DEEP VEI 08/06/2018 DI BECKFORD MD, Ot Z79.01 CASH ROOM CLERK (CURRENT) USE OF ANTICOAGULANT 08/06/2018 DI BECKFORD MD, Ot L04.0 ACUTE LYMPHADENITIS OF FACE, HEAD AND NE 08/06/2018 NOEMY MURDOCK MD Ot E78.5 HYPERLIPIDEMIA, UNSPECIFIED 08/06/2018 NOEMY MURDOCK MD, Ot I26.99 OTHER PULMONARY EMBOLISM WITHOUT ACUTE C 08/06/2018 NOEMY MURDOCK MD Ot I82.402 ACUTE EMBOLISM AND THOMBOS UNSP DEEP VEI 08/06/2018 NOEMY MURDOCK MD, Ot Z79.01 CASH ROOM CLERK (CURRENT) USE OF ANTICOAGULANT 08/06/2018 NOEMY MURDOCK MD, Ot Z79.899 OTHER CASH ROOM CLERK (CURRENT) DRUG THERAPY 08/06/2018 MARY SNYDER APRN Ot E78.00 PURE HYPERCHOLESTEROLEMIA, UNSPECIFIED 08/06/2018 MARY SNYDER APRN Ot F41.9 ANXIETY DISORDER, UNSPECIFIED 08/06/2018 MARY SNYDER APRN Ot R07.89 OTHER CHEST PAIN 08/06/2018 MARY SNYDER APRN Ot Z86.711 PERSONAL HISTORY OF PULMONARY EMBOLISM 08/06/2018 MARY SNYDER APRN Ot 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 08/06/2018 MOOK MILLER MD Ot K42.9 UMBILICAL HERNIA WITHOUT OBSTRUCTION OR 08/06/2018 MOOK MILLER MD Ot K57.30 DVRTCLOS OF LG INT W/O PERFORATION OR AB 08/06/2018 MOOK MILLER MD Ot R31.0 GROSS HEMATURIA 08/06/2018 ONEIDA AQUINO MD, Ot I26.99 OTHER PULMONARY EMBOLISM WITHOUT ACUTE C 08/06/2018 ONEIDA AQUINO MD Ot I82.409 ACUTE EMBOLISM AND THOMBOS UNSP DEEP VN 08/06/2018 ONEIDA AQUINO MD Ot R07.89 OTHER CHEST PAIN 08/06/2018 DI BECKFORD MD Ot 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, 08/06/2018 DI BECKFORD MD, Ot I82.402 ACUTE EMBOLISM AND THOMBOS UNSP DEEP VEI 08/06/2018 DI BECKFORD MD, Ot Z79.01 CASH ROOM CLERK (CURRENT) USE OF ANTICOAGULANT 08/06/2018 SHAKEEL MD, DI J Ot L04.0 ACUTE LYMPHADENITIS OF FACE, HEAD AND NE 08/06/2018 NOEMY MURDOCK MD Ot E78.5 HYPERLIPIDEMIA, UNSPECIFIED 08/06/2018 NOEMY MURDOCK MD Ot I26.99 OTHER PULMONARY EMBOLISM WITHOUT ACUTE C 08/06/2018 NOEMY MURDOCK MD Ot I82.402 ACUTE EMBOLISM AND THOMBOS UNSP DEEP VEI 08/06/2018 NOEMY MURDOCK MD Ot Z79.01 CASH ROOM CLERK (CURRENT) USE OF ANTICOAGULANT 08/06/2018 NOEMY MURDOCK MD Ot Z79.899 OTHER CORRECTION (CURRENT) DRUG THERAPY 08/11/2018 MARY SNYDER APRN Ot E78.00 PURE HYPERCHOLESTEROLEMIA, UNSPECIFIED 08/11/2018 MARY SNYDER MAIL AGENT Ot F41.9 ANXIETY DISORDER, UNSPECIFIED 08/11/2018 MARY SNYDER MAIL AGENT Ot R07.89 OTHER CHEST PAIN 08/11/2018 MARY SNYDER MAIL AGENT Ot Z86.711 PERSONAL HISTORY OF PULMONARY EMBOLISM 08/11/2018 MARY SNYDER MAIL AGENT Ot 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 08/11/2018 MARY SNYDER MAIL AGENT Ot E78.00 PURE HYPERCHOLESTEROLEMIA, UNSPECIFIED 08/11/2018 MARY SNYDER MAIL AGENT Ot F41.9 ANXIETY DISORDER, UNSPECIFIED 08/11/2018 MARY SNYDER MAIL AGENT Ot R07.89 OTHER CHEST PAIN 08/11/2018 MARY SNYDER MAIL AGENT Ot Z86.711 PERSONAL HISTORY OF PULMONARY EMBOLISM 08/11/2018 MARY SNYDER MAIL AGENT Ot 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 08/15/2018 NOEMY MURDOCK MD Ot E78.5 HYPERLIPIDEMIA, UNSPECIFIED 08/15/2018 NOEMY MURDOCK MD Ot I26.99 OTHER PULMONARY EMBOLISM WITHOUT ACUTE C 08/15/2018 NOEMY MURDOCK MD Ot I82.402 ACUTE EMBOLISM AND THOMBOS UNSP DEEP VEI 08/15/2018 NOEMY MURDOCK MD Ot Z79.01 CORRECTION (CURRENT) USE OF ANTICOAGULANT 08/15/2018 NOEMY MURDOCK MD Ot Z79.899 OTHER CASH ROOM CLERK (CURRENT) DRUG THERAPY 09/02/2018 MOOK MILLER MD Ot K42.9 UMBILICAL HERNIA WITHOUT OBSTRUCTION OR 09/02/2018 MOOK MILLER MD Ot K57.30 DVRTCLOS OF LG INT W/O PERFORATION OR AB 09/02/2018 MOOK MILLER MD Ot R31.0 GROSS HEMATURIA 09/02/2018 ONEIDA AQUINO MD, Ot I26.99 OTHER PULMONARY EMBOLISM WITHOUT ACUTE C 09/02/2018 ONEIDA AQUINO MD Ot I82.409 ACUTE EMBOLISM AND THOMBOS UNSP DEEP VN 09/02/2018 ONEIDA AQUINO MD Ot R07.89 OTHER CHEST PAIN 09/02/2018 DI BECKFORD MD, Ot 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, 09/02/2018 DI BECKFORD MD Ot I82.402 ACUTE EMBOLISM AND THOMBOS UNSP DEEP VEI 09/02/2018 DI BECKFORD MD, Ot Z79.01 CASH ROOM CLERK (CURRENT) USE OF ANTICOAGULANT 09/02/2018 DI BECKFORD MD, Ot L04.0 ACUTE LYMPHADENITIS OF FACE, HEAD AND NE 09/02/2018 NOEMY MURDOCK MD Ot E78.5 HYPERLIPIDEMIA, UNSPECIFIED 09/02/2018 NOEMY MURDOCK MD Ot I26.99 OTHER PULMONARY EMBOLISM WITHOUT ACUTE C 09/02/2018 NOEMY MURDOCK MD Ot I82.402 ACUTE EMBOLISM AND THOMBOS UNSP DEEP VEI 09/02/2018 NOEMY MURDOCK MD Ot Z79.01 CASH ROOM CLERK (CURRENT) USE OF ANTICOAGULANT 09/02/2018 NOEMY MURDOCK MD Ot Z79.899 OTHER CASH ROOM CLERK (CURRENT) DRUG THERAPY 09/04/2018 DI BECKFORD MD Ot R07.9 CHEST PAIN, UNSPECIFIED 09/06/2018 MOOK MILLER MD Ot K42.9 UMBILICAL HERNIA WITHOUT OBSTRUCTION OR 09/06/2018 MOOK MILLER MD Ot K57.30 DVRTCLOS OF LG INT W/O PERFORATION OR AB 09/06/2018 MOOK MILLER MD Ot R31.0 GROSS HEMATURIA 09/06/2018 ONEIDA AQUINO MD Ot I26.99 OTHER PULMONARY EMBOLISM WITHOUT ACUTE C 09/06/2018 ONEIDA AQUINO MD Ot I82.409 ACUTE EMBOLISM AND THOMBOS UNSP DEEP VN 09/06/2018 ONEIDA AQUINO MD Ot R07.89 OTHER CHEST PAIN 09/06/2018 SHAKEEL MD, DI J Ot 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, 09/06/2018 DI BECKFORD MD Ot I82.402 ACUTE EMBOLISM AND THOMBOS UNSP DEEP VEI 09/06/2018 DI BECKFORD MD, Ot Z79.01 CASH ROOM CLERK (CURRENT) USE OF ANTICOAGULANT 09/06/2018 DI BECKFORD MD Ot L04.0 ACUTE LYMPHADENITIS OF FACE, HEAD AND NE 09/06/2018 NOEMY MURDOCK MD Ot E78.5 HYPERLIPIDEMIA, UNSPECIFIED 09/06/2018 NOEMY MURDOCK MD Ot I26.99 OTHER PULMONARY EMBOLISM WITHOUT ACUTE C 09/06/2018 NOEMY MURDOCK MD Ot I82.402 ACUTE EMBOLISM AND THOMBOS UNSP DEEP VEI 09/06/2018 NOEMY MURDOCK MD, Ot Z79.01 CASH ROOM CLERK (CURRENT) USE OF ANTICOAGULANT 09/06/2018 NOEMY MURDOCK MD, Ot Z79.899 OTHER CASH ROOM CLERK (CURRENT) DRUG THERAPY 09/06/2018 DI BECKFORD MD Ot R07.9 CHEST PAIN, UNSPECIFIED 09/12/2018 GLEN KENNY MD Ot E78.00 PURE HYPERCHOLESTEROLEMIA, UNSPECIFIED 09/12/2018 GLEN KENNY MD Ot F41.9 ANXIETY DISORDER, UNSPECIFIED 09/12/2018 GLEN KENNY MD Ot R07.81 PLEURODYNIA 09/12/2018 GLEN KENNY MD Ot R07.9 CHEST PAIN, UNSPECIFIED 09/12/2018 GLEN KENNY MD Ot Z82.49 FAMILY HX OF ISCHEM HEART DIS AND OTH DI 09/12/2018 GLEN KENNY MD Ot Z86.711 PERSONAL HISTORY OF PULMONARY EMBOLISM 09/12/2018 GLEN KENNY MD Ot 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 10/02/2018 NEOMY MURDOCK MD Ot E78.5 HYPERLIPIDEMIA, UNSPECIFIED 10/02/2018 NOEMY MURDOCK MD Ot I26.99 OTHER PULMONARY EMBOLISM WITHOUT ACUTE C 10/02/2018 NOEMY MURDOCK MD Ot I82.402 ACUTE EMBOLISM AND THOMBOS UNSP DEEP VEI 10/02/2018 NOEMY MURDOCK MD Ot Z79.01 CORRECTION (CURRENT) USE OF ANTICOAGULANT 10/02/2018 NOEMY MURDOCK MD Ot Z79.899 OTHER CASH ROOM CLERK (CURRENT) DRUG THERAPY 10/03/2018 NOEMY MURDOCK MD, Ot E78.5 HYPERLIPIDEMIA, UNSPECIFIED 10/03/2018 NOEMY MURDOCK MD Ot I26.99 OTHER PULMONARY EMBOLISM WITHOUT ACUTE C 10/03/2018 NOEMY MURDOCK MD Ot I82.402 ACUTE EMBOLISM AND THOMBOS UNSP DEEP VEI 10/03/2018 NOEMY MURDOCK MD Ot Z79.01 CORRECTION (CURRENT) USE OF ANTICOAGULANT 10/03/2018 NOEMY MURDOCK MD Ot Z79.899 OTHER CORRECTION (CURRENT) DRUG THERAPY 10/03/2018 NOEMY MURDOCK MD Ot E78.5 HYPERLIPIDEMIA, UNSPECIFIED 10/03/2018 NOEMY MURDOCK MD Ot I26.99 OTHER PULMONARY EMBOLISM WITHOUT ACUTE C 10/03/2018 NOEMY MURDOCK MD Ot I82.402 ACUTE EMBOLISM AND THOMBOS UNSP DEEP VEI 10/03/2018 NOEMY MURDOCK MD Ot Z79.01 CORRECTION (CURRENT) USE OF ANTICOAGULANT 10/03/2018 NOEMY MURDOCK MD, Ot Z79.899 OTHER CASH ROOM CLERK (CURRENT) DRUG THERAPY 10/14/2018 ONEIDA AQUINO MD Ot I26.99 OTHER PULMONARY EMBOLISM WITHOUT ACUTE C 10/14/2018 ONEIDA AQUINO MD Ot R07.89 OTHER CHEST PAIN 10/29/2018 ONEIDA AQUINO MD Ot I26.99 OTHER PULMONARY EMBOLISM WITHOUT ACUTE C 10/29/2018 ONEIDA AQUINO MD Ot R07.89 OTHER CHEST PAIN 11/21/2018 VIGNESH MONTOYA MD, Ot E78.00 PURE HYPERCHOLESTEROLEMIA, UNSPECIFIED 11/21/2018 VIGNESH MONTOYA MD, Ot F41.9 ANXIETY DISORDER, UNSPECIFIED 11/21/2018 VIGNESH MONTOYA MD, Ot Z82.49 FAMILY HX OF ISCHEM HEART DIS AND OTH DI 11/21/2018 VIGNESH MONTOYA MD, Ot Z86.711 PERSONAL HISTORY OF PULMONARY EMBOLISM 11/21/2018 VIGNESH MONTOYA MD, Ot 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 Procedures There is no data. Results Test Result Range PT panel in platelet poor plasma by coagulation assay - 03/13/18 11:30 Prothrombin time (PT) in platelet poor plasma by coagulation assay 27.8 s 12.2-14.7 INR in platelet poor plasma or blood by coagulation assay 2.6 0.8-1.4 Activated partial thromboplastin time (aPTT) in platelet poor plasma bycoagulation assay - 03/13/18 11:30 Activated partial thromboplastin time (aPTT) in platelet poor plasma bycoagulation assay 51 s 24-35 Complete blood count (CBC) with automated white blood cell (WBC) differential - 03/13/18 11:30 Blood leukocytes automated count (number/volume) 6.9 10*3/uL 4.3-11.0 Blood erythrocytes automated count (number/volume) 4.22 10*6/uL 4.35-5.85 Venous blood hemoglobin measurement (mass/volume) 14.9 g/dL 13.3-17.7 Blood hematocrit (volume fraction) 38 % 40-54 Automated erythrocyte mean corpuscular volume 91 [foz_us] 80-99 Automated erythrocyte mean corpuscular hemoglobin (mass per erythrocyte) 35 pg 25-34 Automated erythrocyte mean corpuscular hemoglobin concentration measurement (mass/volume) 39 g/dL 32-36 Automated erythrocyte distribution width ratio 12.3 % 10.0- 14.5 Automated blood platelet count (count/volume) 241 10*3/uL 130-400 Automated blood platelet mean volume measurement 9.4 [foz_us] 7.4-10.4 Automated blood neutrophils/100 leukocytes 76 % 42-75 Automated blood lymphocytes/100 leukocytes 16 % 12-44 Blood monocytes/100 leukocytes 9 % 0-12 Automated blood eosinophils/100 leukocytes 0 % 0-10 Automated blood basophils/100 leukocytes 0 % 0-10 Blood neutrophils automated count (number/volume) 5.2 10*3 1.8-7.8 Blood lymphocytes automated count (number/volume) 1.1 10*3 1.0-4.0 Blood monocytes automated count (number/volume) 0.6 10*3 0.0- 1.0 Automated eosinophil count 0.0 10*3/uL 0.0-0.3 Automated blood basophil count (count/volume) 0.0 10*3/uL 0.0-0.1 Comprehensive metabolic panel - 03/13/18 11:30 Serum or plasma sodium measurement (moles/volume) 140 mmol/L 135-145 Serum or plasma potassium measurement (moles/volume) 3.8 mmol/L 3.6-5.0 Serum or plasma chloride measurement (moles/volume) 107 mmol/L 98-107 Carbon dioxide 23 mmol/L 21-32 Serum or plasma anion gap determination (moles/volume) 10 mmol/L 5-14 Serum or plasma urea nitrogen measurement (mass/volume) 9 mg/dL 7-18 Serum or plasma creatinine measurement (mass/volume) 0.81 mg/dL 0.60-1.30 Serum or plasma urea nitrogen/creatinine mass ratio 11 NRG Serum or plasma creatinine measurement with calculation of estimated glomerular filtration rate > NRG Serum or plasma glucose measurement (mass/volume) 100 mg/dL 70-105 Serum or plasma calcium measurement (mass/volume) 9.8 mg/dL 8.5-10.1 Serum or plasma total bilirubin measurement (mass/volume) 1.1 mg/dL 0.1-1.0 Serum or plasma alkaline phosphatase measurement (enzymatic activity/volume) 44 U/L 40-136 Serum or plasma aspartate aminotransferase measurement (enzymatic activity/volume) 17 U/L 5-34 Serum or plasma alanine aminotransferase measurement (enzymatic activity/volume) 21 U/L 0-55 Serum or plasma protein measurement (mass/volume) 7.2 g/dL 6.4-8.2 Serum or plasma albumin measurement (mass/volume) 4.7 g/dL 3.2-4.5 Magnesium - 03/13/18 11:30 Magnesium 2.0 mg/dL 1.8-2.4 Serum or plasma troponin i.cardiac measurement (mass/volume) - 03/13/18 11:30 Serum or plasma troponin i.cardiac measurement (mass/volume) < ng/mL <0.30 Myoglobin, serum - 03/13/18 11:30 Myoglobin, serum 67.8 ng/mL 10.0-92.0 Serum or plasma lithium measurement (moles/volume) - 03/13/18 11:30 BNP level 10.6 pg/mL <100.0 Complete blood count (CBC) with automated white blood cell (WBC) differential - 08/06/18 12:40 Blood leukocytes automated count (number/volume) 9.8 10*3/uL 4.3-11.0 Blood erythrocytes automated count (number/volume) 4.68 10*6/uL 4.35-5.85 Venous blood hemoglobin measurement (mass/volume) 16.2 g/dL 13.3-17.7 Blood hematocrit (volume fraction) 44 % 40-54 Automated erythrocyte mean corpuscular volume 93 [foz_us] 80-99 Automated erythrocyte mean corpuscular hemoglobin (mass per erythrocyte) 35 pg 25-34 Automated erythrocyte mean corpuscular hemoglobin concentration measurement (mass/volume) 37 g/dL 32-36 Automated erythrocyte distribution width ratio 12.6 % 10.0- 14.5 Automated blood platelet count (count/volume) 382 10*3/uL 130-400 Automated blood platelet mean volume measurement 8.9 [foz_us] 7.4-10.4 Automated blood neutrophils/100 leukocytes 74 % 42-75 Automated blood lymphocytes/100 leukocytes 17 % 12-44 Blood monocytes/100 leukocytes 7 % 0-12 Automated blood eosinophils/100 leukocytes 2 % 0-10 Automated blood basophils/100 leukocytes 0 % 0-10 Blood neutrophils automated count (number/volume) 7.3 10*3 1.8-7.8 Blood lymphocytes automated count (number/volume) 1.7 10*3 1.0-4.0 Blood monocytes automated count (number/volume) 0.7 10*3 0.0- 1.0 Automated eosinophil count 0.2 10*3/uL 0.0-0.3 Automated blood basophil count (count/volume) 0.0 10*3/uL 0.0-0.1 PT panel in platelet poor plasma by coagulation assay - 08/06/18 12:40 Prothrombin time (PT) in platelet poor plasma by coagulation assay 13.1 s 12.2-14.7 INR in platelet poor plasma or blood by coagulation assay 1.0 0.8-1.4 Activated partial thromboplastin time (aPTT) in platelet poor plasma bycoagulation assay - 08/06/18 12:40 Activated partial thromboplastin time (aPTT) in platelet poor plasma bycoagulation assay 33 s 24-35 Comprehensive metabolic panel - 08/06/18 12:40 Serum or plasma sodium measurement (moles/volume) 140 mmol/L 135-145 Serum or plasma potassium measurement (moles/volume) 3.8 mmol/L 3.6-5.0 Serum or plasma chloride measurement (moles/volume) 101 mmol/L 98-107 Carbon dioxide 26 mmol/L 21-32 Serum or plasma anion gap determination (moles/volume) 13 mmol/L 5-14 Serum or plasma urea nitrogen measurement (mass/volume) 12 mg/dL 7-18 Serum or plasma creatinine measurement (mass/volume) 0.88 mg/dL 0.60-1.30 Serum or plasma urea nitrogen/creatinine mass ratio 14 NRG Serum or plasma creatinine measurement with calculation of estimated glomerular filtration rate > NRG Serum or plasma glucose measurement (mass/volume) 107 mg/dL 70-105 Serum or plasma calcium measurement (mass/volume) 9.9 mg/dL 8.5-10.1 Serum or plasma total bilirubin measurement (mass/volume) 0.8 mg/dL 0.1-1.0 Serum or plasma alkaline phosphatase measurement (enzymatic activity/volume) 87 U/L 40-136 Serum or plasma aspartate aminotransferase measurement (enzymatic activity/volume) 28 U/L 5-34 Serum or plasma alanine aminotransferase measurement (enzymatic activity/volume) 52 U/L 0-55 Serum or plasma protein measurement (mass/volume) 7.9 g/dL 6.4-8.2 Serum or plasma albumin measurement (mass/volume) 4.8 g/dL 3.2-4.5 Magnesium - 08/06/18 12:40 Magnesium 2.3 mg/dL 1.8-2.4 Serum or plasma troponin i.cardiac measurement (mass/volume) - 08/06/18 12:40 Serum or plasma troponin i.cardiac measurement (mass/volume) < ng/mL <0.028 Myoglobin, serum - 08/06/18 12:40 Myoglobin, serum 31.7 ng/mL 10.0-92.0 Serum or plasma lithium measurement (moles/volume) - 08/06/18 12:40 BNP level < pg/mL <100.0 Fibrin D-dimer FEU measurement in platelet poor plasma (mass/volume) - 08/06/18 12:40 Fibrin D-dimer FEU measurement in platelet poor plasma (mass/volume) 0.39 ug/mL 0.00-0.49 Complete blood count (CBC) with automated white blood cell (WBC) differential - 09/06/18 07:30 Blood leukocytes automated count (number/volume) 4.9 10*3/uL 4.3-11.0 Blood erythrocytes automated count (number/volume) 4.30 10*6/uL 4.35-5.85 Venous blood hemoglobin measurement (mass/volume) 14.9 g/dL 13.3-17.7 Blood hematocrit (volume fraction) 40 % 40-54 Automated erythrocyte mean corpuscular volume 93 [foz_us] 80-99 Automated erythrocyte mean corpuscular hemoglobin (mass per erythrocyte) 35 pg 25-34 Automated erythrocyte mean corpuscular hemoglobin concentration measurement (mass/volume) 37 g/dL 32-36 Automated erythrocyte distribution width ratio 12.8 % 10.0- 14.5 Automated blood platelet count (count/volume) 234 10*3/uL 130-400 Automated blood platelet mean volume measurement 9.2 [foz_us] 7.4-10.4 Automated blood neutrophils/100 leukocytes 63 % 42-75 Automated blood lymphocytes/100 leukocytes 26 % 12-44 Blood monocytes/100 leukocytes 9 % 0-12 Automated blood eosinophils/100 leukocytes 2 % 0-10 Automated blood basophils/100 leukocytes 0 % 0-10 Blood neutrophils automated count (number/volume) 3.1 10*3 1.8-7.8 Blood lymphocytes automated count (number/volume) 1.3 10*3 1.0-4.0 Blood monocytes automated count (number/volume) 0.4 10*3 0.0- 1.0 Automated eosinophil count 0.1 10*3/uL 0.0-0.3 Automated blood basophil count (count/volume) 0.0 10*3/uL 0.0-0.1 Comprehensive metabolic panel - 09/06/18 07:30 Serum or plasma sodium measurement (moles/volume) 138 mmol/L 135-145 Serum or plasma potassium measurement (moles/volume) 4.2 mmol/L 3.6-5.0 Serum or plasma chloride measurement (moles/volume) 104 mmol/L 98-107 Carbon dioxide 24 mmol/L 21-32 Serum or plasma anion gap determination (moles/volume) 10 mmol/L 5-14 Serum or plasma urea nitrogen measurement (mass/volume) 11 mg/dL 7-18 Serum or plasma creatinine measurement (mass/volume) 0.92 mg/dL 0.60-1.30 Serum or plasma urea nitrogen/creatinine mass ratio 12 NRG Serum or plasma creatinine measurement with calculation of estimated glomerular filtration rate > NRG Serum or plasma glucose measurement (mass/volume) 178 mg/dL 70-105 Serum or plasma calcium measurement (mass/volume) 9.4 mg/dL 8.5-10.1 Serum or plasma total bilirubin measurement (mass/volume) 0.6 mg/dL 0.1-1.0 Serum or plasma alkaline phosphatase measurement (enzymatic activity/volume) 49 U/L 40-136 Serum or plasma aspartate aminotransferase measurement (enzymatic activity/volume) 23 U/L 5-34 Serum or plasma alanine aminotransferase measurement (enzymatic activity/volume) 29 U/L 0-55 Serum or plasma protein measurement (mass/volume) 6.8 g/dL 6.4-8.2 Serum or plasma albumin measurement (mass/volume) 4.4 g/dL 3.2-4.5 CALCIUM CORRECTED 9.1 mg/dL 8.5-10.1 Serum or plasma troponin i.cardiac measurement (mass/volume) - 09/06/18 07:30 Serum or plasma troponin i.cardiac measurement (mass/volume) < ng/mL <0.028 Encounters ACCT No. Visit Date/Time Discharge Status Pt. Type Provider Facility Loc./Unit Complaint [id number] 11/18/2018 05:13:00 11/18/2018 06:48:00 DIS Outpatient JAN LANGE, VIGNESH Garner [facility] ER CP, BACK SHOULDER PAIN,ANXIETY [id number] 10/03/2018 00:14:00 10/03/2018 23:59:59 CLS Preadmit NOEMY MURDOCK MD [facility] ONC [id number] 07/04/2018 08:24:00 10/02/2018 00:01:00 DIS Outpatient NOEMY MURDOCK MD [facility] ONC [id number] 09/06/2018 06:58:00 09/06/2018 09:00:00 DIS Outpatient GLEN KENNY MD [facility] ER CHEST DISCOMFORT [id number] 09/02/2018 08:49:00 09/02/2018 23:59:59 CLS Outpatient DI BECKFORD MD [facility] CARD CHEST PAIN [id number] 08/06/2018 12:36:00 08/06/2018 14:20:00 DIS Emergency MARY SNYDER APRN [facility] ER CHEST PAIN [id number] 04/02/2018 10:20:00 07/01/2018 00:01:00 DIS Outpatient NOEMY MURDOCK MD [facility] ONC [id number] 06/04/2018 10:43:00 06/04/2018 23:59:59 CLS Outpatient DI BCEKFORD MD [facility] RAD ACUTE LYMPHADENITIS OF FACE,HEAD AND NECK [id number] 05/05/2018 07:16:00 05/05/2018 23:59:59 CLS Outpatient ONEIDA AQUINO MD [facility] CARD ANTERIOR CHEST WALL PAIN,DVT,PE [id number] 04/02/2018 11:51:00 04/02/2018 23:59:59 CLS Outpatient DI BECKFORD MD [facility] RAD DVT [id number] 03/24/2018 06:58:00 03/24/2018 08:00:00 DIS Emergency DUNG GAINES MD [facility] ER ANXIETY [id number] 03/20/2018 10:31:00 03/20/2018 23:59:59 CLS Outpatient DI BECKFORD MD [facility] RAD THROACIC BACK PAIN [id number] 03/13/2018 11:13:00 03/13/2018 13:22:00 DIS Emergency MARY SNYDER APRN [facility] ER CHEST PAIN [id number] 02/25/2018 12:07:00 02/25/2018 23:59:59 CLS Preadmit ONEIDA AQUINO MD [facility] CARD R07.89 ANTERIOR CHEST WALL PAIN [id number] 01/29/2018 14:59:00 02/21/2018 00:01:00 DIS Outpatient NOEMY MURDOCK MD [facility] ONC [id number] 01/20/2018 20:12:00 01/20/2018 22:11:00 DIS Emergency MARY SNYDER APRN [facility] ER BLOOD CLOT [id number] 01/16/2018 06:17:00 01/16/2018 07:00:00 DIS Emergency ELLIS BOYD MD [facility] ER PAIN BEHIND KNEE, LEFT LEG [id number] 11/12/2016 12:21:00 11/12/2016 23:59:59 CLS Outpatient PAUL LANGE, MOOK Gonzalez [facility] RAD GROSS HEMATURIA [id number] 02/03/2018 15:49:00 Document Registration
[2018-12-10] MEDS ORDERED: LIDOCAINE 2% VISCOUS 15 ML UDC ONE (08:25)
[2018-12-10] MEDS ORDERED: ANTACID SUSP 30 ML UDC (MYLANTA) ONE (08:25)
[2018-12-10 09:48] VITALS: BP 150/100
[2018-12-10] MEDS ORDERED: ANTACID SUSP 30 ML UDC (MYLANTA) PO ONE ×2 (10:00→12:30)
[2018-12-10] MEDS ORDERED: LIDOCAINE 2% VISCOUS 15 ML UDC PO ONE ×2 (10:00→12:30)
--- NOTE | 2018-12-10 11:45 | NUR ---
Kayley yun in ED - 12/10/18 at 1151 by JENNIFER PT COMPLAINS OF FEELING ANXIOUS AND HAVING SOME ITCHING ON HIS LEGS. NOTIFIED WHO WENT AND TALKED TO THE PT.
== END 2018-12-10 07:45 | disposition home or self-care (01) ==
LOC: EDUNIT# 06:41 → ER 06:42
DX: F41.9 Anxiety disorder, unspecified (principal); R07.89 Other chest pain
CPT/HCPCS: 36415; 84484; 85379; 93005

== ENCOUNTER → 2019-01-11 | Outpatient (CLI) | payer BC ==
[2019-01-11 15:00] LABS: BASOPHILS % (AUTO) 0 % (0-10); EOSINOPHILS # (AUTO) 0.1 10^3/uL (0.0-0.3); EOSINOPHILS % (AUTO) 1 % (0-10); HEMATOCRIT 40 % (40-54); HEMOGLOBIN 14.8 G/DL (13.3-17.7); LYMPHOCYTES # (AUTO) 1.3 X 10^3 (1.0-4.0); LYMPHOCYTES % (AUTO) 18 % (12-44); MEAN CORPUSCULAR HEMOGLOBIN 34 PG (25-34); MEAN CORPUSCULAR HGB CONC 37 G/DL (32-36); MEAN CORPUSCULAR VOLUME 92 FL (80-99); MEAN PLATELET VOLUME 9.5 FL (7.4-10.4); MONOCYTES # (AUTO) 0.8 X 10^3 (0.0-1.0); MONOCYTES % (AUTO) 11 % (0-12); NEUTROPHILS # (AUTO) 5.1 X 10^3 (1.8-7.8); NEUTROPHILS % (AUTO) 70 % (42-75); PLATELET COUNT 235 10^3/uL (130-400); RED CELL DISTRIBUTION WIDTH 12.6 % (10.0-14.5); WHITE BLOOD COUNT 7.3 10^3/uL (4.3-11.0)
[2019-01-11 15:16] LABS: ALANINE AMINOTRANSFERASE 33 U/L (0-55); ALBUMIN 4.7 GM/DL (3.2-4.5); ALKALINE PHOSPHATASE 49 U/L (40-136); BILIRUBIN,TOTAL 1.2 MG/DL (0.1-1.0); BUN/CREATININE RATIO 9; CALCIUM 9.7 MG/DL (8.5-10.1); CARBON DIOXIDE 26 MMOL/L (21-32); CHLORIDE 104 MMOL/L (98-107); CREATININE SERUM 1.19 MG/DL (0.60-1.30); GFR ESTIMATED > 60; GLUCOSE 129 MG/DL (70-105); POTASSIUM 3.8 MMOL/L (3.6-5.0); SODIUM 140 MMOL/L (135-145)
[2019-01-11 15:25] LABS: ERYTHROCYTE SEDIMENTATION RATE 4 MM/HR (0-15)
== END ==
LOC: LABNPT 14:53
PROVIDERS: ATTEND Nurse Practitioner
DX: Z01.89 Encounter for other specified special examinations (principal)
CPT/HCPCS: 80053; 84484; 85025; 85379; 85652

== ENCOUNTER → 2019-01-20 | Outpatient (CLI) | payer BC ==
[~2019-01-20] MED LIST changes: +GADOBUTROL 10 MMOL/10 ML (GADAVIST) VIAL IV ONE
--- NOTE | 2019-01-20 12:19 | Diagnostic Imaging Report ---
INDICATION: Paresthesias in the left side of the chest and arm. TECHNIQUE: Pre and post intravenous contrast multiplanar and multisequence imaging of the thoracic spine was performed. FINDINGS: Curvature and alignment of the thoracic spine is normal. Vertebral body heights are maintained. Marrow signal intensity is unremarkable. 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 There is normal height and signal intensity through the thoracic intervertebral discs. No focal disc protrusion is seen. There is no central canal or neuroforaminal stenosis identified. The thoracic spinal cord demonstrates normal homogeneous signal intensity and normal morphology. No abnormal enhancement is identified following contrast administration. The paraspinous tissues are unremarkable. IMPRESSION: Essentially unremarkable pre and post contrast MRI of the thoracic spine. Dictated by: Dictated on workstation # [id number]
== END ==
LOC: RAD 09:13
PROVIDERS: ATTEND Nurse Practitioner Family
DX: S46.812A Strain of other muscles, fascia and tendons at shoulder and upper arm level, left arm, initial encounter (principal); M54.14 Radiculopathy, thoracic region; F41.9 Anxiety disorder, unspecified; R03.0 Elevated blood-pressure reading, without diagnosis of hypertension; F32.9 Major depressive disorder, single episode, unspecified; J30.89 Other allergic rhinitis; E78.49 Other hyperlipidemia; T14.8XXA Other injury of unspecified body region, initial encounter; R20.2 Paresthesia of skin; Z86.718 Personal history of other venous thrombosis and embolism; R07.89 Other chest pain
CPT/HCPCS: 72157

== ENCOUNTER 2019-02-13 10:25 | Outpatient (CLI) | payer BC ==
[~2019-02-13] VITALS: Ht 180.3 cm; Wt 83.9 kg
[~2019-02-13 10:25] MED LIST changes: -ATOR10TA66; +ATOR10TA66 PO; -GADOBUTROL 10 MMOL/10 ML (GADAVIST) VIAL IV ONE
[2019-02-13] MEDS ORDERED: NAPR-915 PO (10:33)
[2019-02-13] MEDS ORDERED: SERT50TA9 PO (10:33)
== END 2019-02-13 10:36 | disposition home or self-care (01) ==
LOC: PREOP 10:25
PROVIDERS: ATTEND Surgery
DX: Z01.818 Encounter for other preprocedural examination (principal)

== ENCOUNTER 2019-02-16 10:56 | Day surgery (SDC) | payer BC ==
[~2019-02-16] VITALS: Ht 180.3 cm; Wt 83.9 kg
[2019-02-16] VITALS (7 sets, daily range): BP systolic 112–130; BP diastolic 65–94
[~2019-02-16 10:56] MED LIST changes: +NAPR-915 PO; +SERT50TA9 PO
[2019-02-16] MEDS ORDERED: LACTATED RINGERS 1,000 ML IV ONE (11:05)
[2019-02-16] MEDS ORDERED: LACTATED RINGERS 1,000 ML IV STA (12:07)
[2019-02-16] MEDS ORDERED: HURRICAINE EXT TUBE (BENZOCAINE) XX PRN (12:15)
--- NOTE | 2019-02-16 12:26 | Progress Note-Pre Operative ---
Pre-Operative Progress Note H&P Reviewed The H&P was reviewed, patient examined and no changes noted. Time Seen by Provider: 12:23 Date H&P Reviewed: Feb 16, 2019 Time H&P Reviewed: 12:23 Pre-Operative Diagnosis: burning chest pain RONNI ESPINO DO Feb 16, 2019 12:26
--- NOTE | 2019-02-16 13:15 | Anesthesia-General Post-Op ---
MAC Patient Condition Mental Status/LOC: Same as Preop Cardiovascular: Satisfactory Nausea/Vomiting: Absent Respiratory: Satisfactory Pain: Controlled Complications: Absent Post Op Complications Complications None Follow Up Care/Instructions Patient Instructions None needed. Anesthesiology Discharge Order Discharge Order Patient is doing well, no complaints, stable vital signs, no apparent adverse anesthesia problems. No complications reported per nursing. CHARBEL MCQUEEN CRNA Feb 16, 2019 13:15
--- NOTE | 2019-02-16 13:17 | Progress Note-Post Operative ---
Post-Operative Progess Note Surgeon (s)/Charge Account Clerk (s) Surgeon RONNI ESPINO DO Charge Account Clerk: none Pre-Operative Diagnosis burning chest pain Post-Operative Diagnosis Gastritis, ?? gastric Ulcer Small hiatal hernia esophagitis Procedure & Operative Findings Date of Procedure 02/16/19 Procedure Performed/Findings EGD with bx Anesthesia Type IV sedation by ROAD CLEANER Estimated Blood Loss Estimated blood loss (mL): scant Specimens/Packing Specimens Removed antral bx body of stomach bx GE jxn bx RONNI ESPINO DO Feb 16, 2019 13:17
--- NOTE | 2019-02-16 13:18 | Endoscopy Discharge Instruct ---
Endo Procedure/Findings Findings 1.: Gastritis 2.: Gastric Ulcer 3.: Hiatal Hernia Discharge Instructions - Activity: You might feel a little sleepy until tomorrow. This is due to the medicine you received to relax you. Until tomorrow, you should: NOT drive a car, operate machinery or power tools. NOT drink any alcoholic beverages. NOT make any important decisions or sign importortant papers. Do not return to work until tomorrow, unless otherwise instructed. Resume previous activities tomorrow. Diet: Start by taking liquids. If you tolerate liquids, advance to solid food. make an appointment for one week Notify Physician - If you experience excessive bleeding, unusual abdominal pain, fever, or chest pain, contact your doctor immediately. Follow-Up: - I have received and understand the above instructions and will call my doctor if I have any further questions. Patient Signature Date Nurse Signature Other (Relationship) RONNI ESPINO DO Feb 16, 2019 13:18
--- NOTE | 2019-02-16 18:06 | OPERATIVE REPORT ---
DATE OF SERVICE: 02/16/2019 PREOPERATIVE DIAGNOSIS: Sternal chest pain and burning. POSTOPERATIVE DIAGNOSES: 1. Gastritis. 2. Questionable gastric ulcer. 3. Esophagitis. 4. Small hiatal hernia. SURGEON: You Luna DO. LEAD SQL DEVELOPER: None. PROCEDURE PERFORMED: Esophagogastroduodenoscopy with biopsy. ANESTHESIA: IV sedation by PROCESSES CHEMICAL DESIGN ENGINEER. SPECIMEN: Biopsy from the antrum, possibly an ulcer, biopsy from the body of stomach and biopsy from the GE junction. BLOOD LOSS: Scant. FLUIDS: Per Anesthesia. POSTOPERATIVE CONDITION: Stable. INDICATION FOR PROCEDURE: The patient is a 43-year-old male who has been having some chest pain. Full cardiac workup was negative. Also, it is more of a burning pain and needs an EGD for workup. FINDINGS: The patient had some gastritis and what looked like gastric ulcers, pictures taken. He also had a small hiatal hernia and what may possibly some esophagitis. PROCEDURE NOTE: After informed consent was obtained, the patient was brought to the endoscopy suite and placed in the left lateral decubitus position. He was administered IV sedation by the PROCESSES CHEMICAL DESIGN ENGINEER who then monitored his vitals the entire time, heart rate, blood pressure, pulse ox and the scope was inserted down the mouth through the esophagus into the stomach. Upon entering the stomach, pushed towards the antrum, saw what looked like maybe some small ulcers, picture was taken and then did a biopsy of these. Pushed into the duodenum, duodenum looked fine, took a picture, pulled the scope back. I did a biopsy of body of stomach, retroflexed the scope, saw it looked like a very small hiatal hernia and then pulled back into the GE junction, saw possibly a small esophagitis, did a biopsy of the GE junction and then suctioned out the air and then pulled the scope up the esophagus and out the mouth. The patient tolerated the procedure. He was recovered in endoscopy suite. Job ID: [id number] DocumentID: [id number] Dictated Date: 02/16/2019 15:33:38 Fuel Cell Binder Date: 02/16/2019 18:05:58 Dictated By: YOU LNUA DO
== END 2019-02-16 13:35 ==
LOC: ENDO 10:56
PROVIDERS: ATTEND Surgery
DX: K29.70 Gastritis, unspecified, without bleeding (principal); K20.9 Esophagitis, unspecified; K44.9 Diaphragmatic hernia without obstruction or gangrene; E78.5 Hyperlipidemia, unspecified; I82.409 Acute embolism and thrombosis of unspecified deep veins of unspecified lower extremity; Z86.711 Personal history of pulmonary embolism; Z79.899 Other long term (current) drug therapy; Z83.3 Family history of diabetes mellitus; Z82.49 Family history of ischemic heart disease and other diseases of the circulatory system
CPT/HCPCS: 88305; 88312

== ENCOUNTER 2019-07-31 06:53 | Emergency (ER) | payer BC ==
[~2019-07-31] VITALS: Ht 177 cm; Wt 88.0 kg
[2019-07-31] MEDS ORDERED: LORAZEPAM (08:36)
[2019-07-31] MEDS ORDERED: CITA10TA7 (08:36)
--- NOTE | 2019-07-31 08:43 | ED Chest Pain ---
General Chief Complaint: Chest Pain Stated Complaint: CP Nursing Triage Note: pt presents to ed with complaints of anxiety, palpitations, and l sided cp on and off x 18 months. pt reports he has been worked up for his cp multiple times and always toold everything looked good. pt states he feels like he is hitting rock bottom and needs help. Nursing Sepsis Screen: No Definite Risk Source: patient Exam Limitations: no limitations History of Present Illness Date Seen by Provider: Jul 31, 2019 Time Seen by Provider: 07:15 Initial Comments This 44-year-old gentleman well-known to me presents to the emergency room with exacerbation of chronic left-sided chest pain and anxiety. He has been struggling with this for many months if not years. Much of his anxiety stems from history of pulmonary embolism. He additionally has chronic chest pain and has anxiety about not knowing whether his pain is related to recurrence of PE or cardiac problems. He has recently from his who told him this morning "we don't need to do anymore". This seemed to be a trigger for her exacerbation. Vital signs are unremarkable. Patient is an avid runner and has no worsening of chest pain or shortness of breath during running. He is currently seeing a therapist which is somewhat helpful. He additionally takes Celexa but the dosing was recently decreased at the request of his . He does note some flattening of affect with Celexa. He wonders if ADD may be part of his etiology for anxiety and states his therapist thinks this as well. He has not had any formal testing for ADD. He denies any suicidal or homicidal ideation. He quit drinking alcohol in May but has resumed drinking caffeine. He thinks drinking caffeine has actually helped with his anxiety. In addition to pain in the left chest and shoulder region, he also has occasional paresthesias in the left hand and arm. He had a stress test in 2017 that was negative. He also had a follow-up appointment with Dr. Durbin in May. Allergies and Home Medications Allergies Coded Allergies: No Known Drug Allergies (Unverified , 01/16/18) Home Medications Atorvastatin Calcium 10 Mg Tablet, 10 MG PO HS, (Reported) Quetiapine Fumarate 25 Mg Tablet, 25 MG PO DAILY Start with 1 tab before bed. May increase to 2 tabs after 1 wk if needed. May take in AM if no effect when taken at night Prescribed by: VIGNESH STARK on 07/31/19 0844 Sertraline HCl 50 Mg Tablet, 50 MG PO DAILY, (Reported) Patient Home Medication List Home Medication List Reviewed: Yes Review of Systems Review of Systems Constitutional: no symptoms reported EENTM: No Symptoms Reported Respiratory: No Symptoms Reported Cardiovascular: See HPI Gastrointestinal: No Symptoms Reported Genitourinary: No Symptoms Reported Musculoskeletal: see HPI Skin: no symptoms reported Psychiatric/Neurological: See HPI Endocrine: No Symptoms Reported Hematologic/Lymphatic: No Symptoms Reported Past Jbunbpo-Jouplr-Khxloh Hx Patient Social History Alcohol Use: Denies Use Number of Drinks Today: AA Alcohol Beverage of Choice: Beer Recreational Drug Use: No Smoking Status: Never a Smoker 2nd Hand Smoke Exposure: No Recent Foreign Travel: No Contact w/Someone Who Travel: No Recent Infectious Disease Expo: No Recent Hopitalizations: No Physical Abuse: No Sexual Abuse: No Mistreated: No Fear: No Immunizations Up To Date Tetanus Booster (TDap): Unknown Seasonal Allergies Seasonal Allergies: No Past Medical History 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 0.0oz. 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 I do not believe his present complaints are related to cardiac or pulmonary pathology. There are chronic in nature and seemed to wax and wane with his mental health status. I did discuss the possibility of cervical radiculopathy as a cause of his left-sided symptoms in the chest and arm. Have recommended that he discuss obtaining an MRI with his primary care provider. See discharge instructions for further discussion. Initial ECG Impression Date: Jul 31, 2019 Initial ECG Impression Time: 07:13 Initial ECG Rate: 66 Initial ECG Rhythm: Normal Sinus Comment Normal sinus rhythm with no ST elevation or depression. Borderline left axis deviation by automated read. No abnormal intervals. Departure Impression Primary Impression: Atypical chest pain Additional Impressions: Anxiety Paresthesia of left arm Disposition: 01 HOME, SELF-CARE Condition: Stable Departure-Patient Inst. Decision time for Depature: 08:38 Referrals: DI BECKFORD MD (PCP/Family) Primary Care Physician Patient Instructions: Paresthesias (DC) Add. Discharge Instructions: Follow-up with your primary care provider soon as possible and consider the following recommendations. 1. The pain in your left shoulder and chest as well as the paresthesias in your arm and hand could be related to a physical problem such as cervical disc disease. Discuss this with Dr. Beckford and consider an MRI of the cervical spine. 2. Consider referral to a psychiatrist for further evaluation and testing. Discuss referral with Dr. Beckford. 3. You may try adding Seroquel as prescribed. You may gradually increase the dose under the direction of Dr. Beckford or a psychiatrist. 4. Return to care if you have significant worsening of symptoms. All discharge instructions reviewed with patient and/or family. Voiced understanding. Scripts Quetiapine Fumarate (Seroquel) 25 Mg Tablet 25 MG PO DAILY, #30 TAB 1 Refill Start with 1 tab before bed. May increase to 2 tabs after 1 wk if needed. May take in AM if no effect when taken at night Prov: VIGNESH MONTOYA MD 07/31/19 Copy Copies To 1: DI BECKFORD MD, JOSHUA T MD Jul 31, 2019 08:43
[2019-07-31] MEDS ORDERED: QUET25TA PO (08:44)
[2019-07-31 08:51] VITALS: BP 132/88
== END 2019-07-31 08:51 | disposition home or self-care (01) ==
LOC: EDUNIT# 06:53 → ER 06:54
DX: R07.89 Other chest pain (principal); F41.9 Anxiety disorder, unspecified; R20.2 Paresthesia of skin; E78.00 Pure hypercholesterolemia, unspecified; Z82.49 Family history of ischemic heart disease and other diseases of the circulatory system
CPT/HCPCS: 93005; 93041

== ENCOUNTER 2019-08-02 05:02 | Emergency (ER) | payer BC ==
[~2019-08-02] VITALS: Ht 177.8 cm; Wt 83.9 kg
[~2019-08-02 05:02] MED LIST changes: +CITA10TA7; +LORAZEPAM; +QUET25TA PO
[2019-08-02] MEDS ORDERED: ASPIRIN 81 MG CHEW (CHILDREN'S ASA) PO STA (05:58)
[2019-08-02 06:19] LABS: BASOPHILS % (AUTO) 0 % (0-10); EOSINOPHILS # (AUTO) 0.1 10^3/uL (0.0-0.3); EOSINOPHILS % (AUTO) 2 % (0-10); HEMATOCRIT 42 % (40-54); HEMOGLOBIN 15.2 G/DL (13.3-17.7); LYMPHOCYTES # (AUTO) 1.8 X 10^3 (1.0-4.0); LYMPHOCYTES % (AUTO) 29 % (12-44); MEAN CORPUSCULAR HEMOGLOBIN 34 PG (25-34); MEAN CORPUSCULAR HGB CONC 36 G/DL (32-36); MEAN CORPUSCULAR VOLUME 93 FL (80-99); MEAN PLATELET VOLUME 9.6 FL (7.4-10.4); MONOCYTES # (AUTO) 0.8 X 10^3 (0.0-1.0); MONOCYTES % (AUTO) 13 % (0-12); NEUTROPHILS # (AUTO) 3.4 X 10^3 (1.8-7.8); NEUTROPHILS % (AUTO) 56 % (42-75); PLATELET COUNT 205 10^3/uL (130-400); RED CELL DISTRIBUTION WIDTH 12.7 % (10.0-14.5); WHITE BLOOD COUNT 6.1 10^3/uL (4.3-11.0)
[2019-08-02 06:22] LABS: BILIRUBIN,URINE NEGATIVE (NEGATIVE); CLARITY,URINE CLEAR; COLOR,URINE YELLOW; GLUCOSE, URINE (UA) NEGATIVE (NEGATIVE); KETONES,URINE NEGATIVE (NEGATIVE); LEUKOCYTE ESTERASE ,URINE NEGATIVE (NEGATIVE); NITRITE,URINE NEGATIVE (NEGATIVE); PROTEIN,URINE NEGATIVE (NEGATIVE)
[2019-08-02 06:33] LABS: AMPHETAMINE SCREEN, URINE NEGATIVE (NEGATIVE); BACTERIA,URINE NEGATIVE /HPF; BARBITURATE SCREEN URINE NEGATIVE (NEGATIVE); BENZODIAZEPINES SCREEN URINE NEGATIVE (NEGATIVE); CANNABINOID SCREEN, URINE NEGATIVE (NEGATIVE); COCAINE SCREEN URINE NEGATIVE (NEGATIVE); METHADONE STAT NEGATIVE (NEGATIVE); METHAMPHETAMINE SCREEN URINE S NEGATIVE (NEGATIVE); OPIATE SCREEN URINE NEGATIVE (NEGATIVE); OXYCODONE STAT NEGATIVE (NEGATIVE); PROPOXYPHENE STAT NEGATIVE (NEGATIVE); SQUAMOUS EPITHELIAL CELL,UR RARE /HPF; TRICYCLIC ANTIDEPRESSANTS SCRE NEGATIVE (NEGATIVE)
--- NOTE | 2019-08-02 06:33 | Diagnostic Imaging Report ---
INDICATION: Chest pain. FINDINGS: The heart size, mediastinal configuration, and pulmonary vascularity are within normal limits. There is no pleural effusion, pneumothorax, or pneumonia. The osseous structures are unremarkable. IMPRESSION: No acute cardiopulmonary abnormality. Dictated by: Dictated on workstation # [id number]
[2019-08-02 06:39] LABS: ALANINE AMINOTRANSFERASE 52 U/L (0-55); ALBUMIN 4.4 GM/DL (3.2-4.5); ALKALINE PHOSPHATASE 61 U/L (40-136); BILIRUBIN,TOTAL 0.5 MG/DL (0.1-1.0); BUN/CREATININE RATIO 15; CALCIUM 9.6 MG/DL (8.5-10.1); CARBON DIOXIDE 24 MMOL/L (21-32); CHLORIDE 110 MMOL/L (98-107); CREATININE SERUM 1.01 MG/DL (0.60-1.30); GFR ESTIMATED > 60; GLUCOSE 83 MG/DL (70-105); POTASSIUM 4.8 MMOL/L (3.6-5.0); SALICYLATE < 5.0 MG/DL (5.0-20.0); SODIUM 144 MMOL/L (135-145)
[2019-08-02 06:49] LABS: ACETAMINOPHEN < 10 UG/ML (10-30)
--- NOTE | 2019-08-02 06:58 | NUR ---
ASSUMED CARE OF PT.
--- NOTE | 2019-08-02 07:05 | NUR ---
IN TALKING TO PT AT THIS TIME
--- NOTE | 2019-08-02 07:13 | NUR ---
0704 ALIS[place] REPORTS NO BEDS AVAILABLE 0713- MESSAGE LEFT FOR [facility] UN[facility] 0715 NOVINGER REPORTS NO BEDS AVAILABLE [place] WOULD LIKE INFORMATION FAXED [facility] REPORTS BED MIGHT BE AVAILABLE ET WOULD LIKE INFO FAXED.
[2019-08-02] MEDS ORDERED: hydrOXYzine (VISTARIL/ATARAX) 25 MG capsule/tablet PO ONE (07:15)
--- NOTE | 2019-08-02 07:19 | ED Psychosocial ---
General Chief Complaint: Psych/Social Disorder Stated Complaint: ANXIOUS, PANICING, CHEST PAIN Nursing Triage Note: C/O BEING AT A BREAKING POINT, STATES IS FEELING OVERWHELMED AND IS HAVING PAIN IN HIS CHEST VERBALIZES HE KNOWS ITS NOT HIS HEART BUT HIS ANXIETY FLOODS HIS HEAD WITH ANXIOUS THOUGHTS ABOUT WHY HIS CHEST IS FEELING THE WAY IT IS. DR BOYD IS IN ROOM AND SPEAKING WITH THE PATIENT AT THIS TIME. Source: patient Exam Limitations: no limitations History of Present Illness Date Seen by Provider: Aug 02, 2019 Time Seen by Provider: 05:37 Initial Comments Here with report of anxiety and feeling overwhelmed. Complains of chest pain to the center of his chest that radiates to his left arm. This is been ongoing for a long time and is had multiple workups for this. All of this started about 18 months ago when he was found to have a blood clot in his leg. It was a minimal blood clot and he was treated for 6 months and is off anticoagulants now. He's had no adverse medical problems related to that since but since that time he has had anxiety about his health and has had a feeling of chest pain. He's had multiple visits in our ER as well as inpatient regarding this and his workup is completely negative with regard to cardiac dysfunction. He runs multiple times weekly and typically runs between 60 and 75 miles a month without difficulty. 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 He is . He's had additional stressors over the last year with 4 different moves. The stress and anxiety that he is suffering from has also caused challenges with his marriage. He states that his is becoming quite fatigued with this and he understands that. He states he just doesn't know what to do. Denies suicidality or homicidality but is completely overwhelmed with his mental health problems. He follows with Dr. Beckford as his PCP. He did start seeing a psychiatrist at [facility]. He was previously on Celexa 20 mg and tapered to 10 mg. His last dose of that was last Saturday and he is currently off Celexa. He saw the psychiatrist on that day and she started him on Neurontin. He has taken a few doses of that. Previously was on Ativan but has not been on that for the last 2 weeks. Denies breathing problems, nausea, vomiting, weakness or sweating. Timing/Duration: yesterday, changing over time Severity: moderate Associated Symptoms: anxiety, impaired concentration Allergies and Home Medications Allergies Coded Allergies: No Known Drug Allergies (Unverified , 01/16/18) Home Medications Atorvastatin Calcium 10 Mg Tablet, 10 MG PO HS, (Reported) Quetiapine Fumarate 25 Mg Tablet, 25 MG PO DAILY Start with 1 tab before bed. May increase to 2 tabs after 1 wk if needed. May take in AM if no effect when taken at night Prescribed by: VIGNESH STARK on 07/31/19 0844 Sertraline HCl 50 Mg Tablet, 50 MG PO DAILY, (Reported) Patient Home Medication List Home Medication List Reviewed: Yes Review of Systems Constitutional: see HPI EENTM: no symptoms reported Respiratory: No cough, No short of breath Cardiovascular: chest pain; No edema, No syncope Gastrointestinal: No abdominal pain, No nausea, No vomiting Genitourinary: no symptoms reported Musculoskeletal: joint pain, muscle pain Skin: no symptoms reported Psychiatric/Neurological: See HPI, Anxiety, Emotional Problems All Other Systems Reviewed Negative Unless Noted: Yes Past Lgrmsad-Tsjxye-Bnggeo Hx Past Med/Social Hx: Reviewed Nursing Past Med/Soc Hx Patient Social History Alcohol Use: Occasionally Uses Number of Drinks Today: AA Alcohol Beverage of Choice: Beer Recreational Drug Use: No 2nd Hand Smoke Exposure: No Recent Foreign Travel: No Contact w/Someone Who Travel: No Recent Infectious Disease Expo: No Recent Hopitalizations: No Physical Abuse: No Sexual Abuse: No Mistreated: No Fear: No Immunizations Up To Date Tetanus Booster (TDap): Unknown Seasonal Allergies Seasonal Allergies: No Past Medical History 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 0.0oz. [id number]; 26.00 BMI Method:Stated General Appearance: WD/WN, mild distress HEENT: PERRL/EOMI, pharynx normal Neck: full range of motion, supple Respiratory: lungs clear, normal breath sounds Cardiovascular: regular rate, rhythm, no murmur Peripheral Pulses: 2+ Dorsalis Pedis (R), 2+ Left Dors-Pedis (L), 2+ Radial Pulses (R), 2+ Radial Pulses (L) Gastrointestinal: non tender, soft Extremities: non-tender, normal inspection Neurologic/Psychiatric: alert, oriented x 3 Appearance/Memory: appropriate appearance, appropriate insight, neat Behavior/Eye Contact: cooperative, good eye contact, normal speech Thoughts/Hallucinations: normal thought pattern, no apparent hallucination Skin: normal color, warm/dry Progress/Results/Core Measures Results/Orders Lab Results Laboratory Tests Test 08/02/19 06:05 08/02/19 06:10 Range/Units Urine Color YELLOW Urine Clarity CLEAR Urine pH 6.0 5-9 Urine Specific [place] 1.025 H 1.016-1.022 Urine Protein NEGATIVE NEGATIVE Urine Glucose (UA) NEGATIVE NEGATIVE Urine Ketones NEGATIVE NEGATIVE Urine Nitrite NEGATIVE NEGATIVE Urine Bilirubin NEGATIVE NEGATIVE Urine Urobilinogen 0.2 < = 1.0 MG/DL Urine Leukocyte Esterase NEGATIVE NEGATIVE Urine RBC (Auto) NEGATIVE NEGATIVE Urine RBC NONE /HPF Urine WBC NONE /HPF Urine Squamous Epithelial Cells RARE /HPF Urine Crystals NONE /LPF Urine Bacteria NEGATIVE /HPF Urine Casts NONE /LPF Urine Mucus NEGATIVE /LPF Urine Culture Indicated NO Urine Opiates Screen NEGATIVE NEGATIVE Urine Oxycodone Screen NEGATIVE NEGATIVE Urine Methadone Screen NEGATIVE NEGATIVE Urine Propoxyphene Screen NEGATIVE NEGATIVE Urine Barbiturates Screen NEGATIVE NEGATIVE Ur Tricyclic Antidepressants Screen NEGATIVE NEGATIVE Urine Phencyclidine Screen NEGATIVE NEGATIVE Urine Amphetamines Screen NEGATIVE NEGATIVE Urine Methamphetamines Screen NEGATIVE NEGATIVE Urine Benzodiazepines Screen NEGATIVE NEGATIVE Urine Cocaine Screen NEGATIVE NEGATIVE Urine Cannabinoids Screen NEGATIVE NEGATIVE White Blood Count 6.1 4.3-11.0 10^3/uL Red Blood Count 4.52 4.35-5.85 10^6/uL Hemoglobin 15.2 13.3-17.7 G/DL Hematocrit 42 40-54 % Mean Corpuscular Volume 93 80-99 FL Mean Corpuscular Hemoglobin 34 25-34 PG Mean Corpuscular Hemoglobin Concent 36 32-36 G/DL Red Cell Distribution Width 12.7 10.0-14.5 % Platelet Count 205 130-400 10^3/uL Mean Platelet Volume 9.6 7.4-10.4 FL Neutrophils (%) (Auto) 56 42-75 % Lymphocytes (%) (Auto) 29 12-44 % Monocytes (%) (Auto) 13 H 0-12 % Eosinophils (%) (Auto) 2 0-10 % Basophils (%) (Auto) 0 0-10 % Neutrophils # (Auto) 3.4 1.8-7.8 X 10^3 Lymphocytes # (Auto) 1.8 1.0-4.0 X 10^3 Monocytes # (Auto) 0.8 0.0-1.0 X 10^3 Eosinophils # (Auto) 0.1 0.0-0.3 10^3/uL Basophils # (Auto) 0.0 0.0-0.1 10^3/uL D-Dimer 0.27 0.00-0.49 UG/ML Sodium Level 144 135-145 MMOL/L Potassium Level 4.8 3.6-5.0 MMOL/L Chloride Level 110 H 98-107 MMOL/L Carbon Dioxide Level 24 21-32 MMOL/L Anion Gap 10 5-14 MMOL/L Blood Urea Nitrogen 15 7-18 MG/DL Creatinine 1.01 0.60-1.30 MG/DL Estimat Glomerular Filtration Rate > 60 BUN/Creatinine Ratio 15 Glucose Level 83 70-105 MG/DL Calcium Level 9.6 8.5-10.1 MG/DL Corrected Calcium 9.3 8.5-10.1 MG/DL Total Bilirubin 0.5 0.1-1.0 MG/DL Aspartate Amino Transf (AST/SGOT) 56 H 5-34 U/L Alanine Aminotransferase (ALT/SGPT) 52 0-55 U/L Alkaline Phosphatase 61 40-136 U/L Troponin I < 0.028 <0.028 NG/ML Total Protein 7.0 6.4-8.2 GM/DL Albumin 4.4 3.2-4.5 GM/DL TSH [place] Testing 3.02 0.35-4.94 UIU/ML Salicylates Level < 5.0 L 5.0-20.0 MG/DL Acetaminophen Level < 10 L 10-30 UG/ML Serum Alcohol < 10 <10 MG/DL My Orders Orders - ELLIS BOYD MD Ua Culture If Indicated (08/02/19 05:58) Cbc With Automated Diff (08/02/19 05:58) Comprehensive Metabolic Panel (08/02/19 05:58) Alcohol (08/02/19 05:58) Drug Screen Stat (Urine) (08/02/19 05:58) Acetaminophen (08/02/19 05:58) Salicylate (08/02/19 05:58) Ekg Tracing (08/02/19 05:58) Ed Iv/Invasive Line Start (08/02/19 05:58) Thyroid Analyzer (08/02/19 05:58) Monitor-Rhythm Ecg Trace Only (08/02/19 05:58) Bh Status Checks/Observation Q15M (08/02/19 05:58) Fibrin Degradation Products (08/02/19 05:58) Troponin I (08/02/19 05:58) Aspirin Chewable Tablet (Baby Aspirin Ch (08/02/19 05:58) Chest 1 View, Ap/Pa Only (08/02/19 05:58) Hydroxyzine Cap/Tab (Vistaril) (08/02/19 07:15) General/Regular (08/02/19 Breakfast) Vital Signs/I&O 08/02/19 05:16 Temp 36.8 Pulse 67 Resp 20 B/P (MAP) 143/93 (110) Pulse Ox 98 Blood Pressure Mean: 110 Progress Progress Note : Progress Note Seen and evaluated. We will go ahead and do the medical clearance screen and also get EKG and chest x-ray. I will check a troponin and thyroid studies. He's had multiple workups related to chest pain that have all been negative and has been cleared by cardiology. I did have a long conversation with him regarding his mental health and medical health. He would like to pursue inpatient evaluation if cleared and and this would be his best option given his significant anxiety and the fact that he is getting quite overwhelmed and he agrees. Monitor patient. 0715: Patient is medically cleared for inpatient psychiatric treatment. I have ordered Vistaril 50 mg by mouth as well as a regular diet breakfast and we will pursue inpatient treatment facilities now. 0730: Care transferred to Dr. Meléndez pending transfer. 0735: Patient has has talked to his and now he does not want to do inpatient. 0750: I have talked at length with the patient regarding his health. He would like to pursue this outpatient and I think that is reasonable. I we will go ahead and represcribed Celexa 20 mg daily as that has been effective for him in the past. He is on gabapentin 100 mg every night. I believe there would be minimal interaction this dose. I will send a copy of the chart to his primary care provider. He will call his doctor as well as his psychiatrist on Saturday for appointment. I did ask him to return for any concerns and he states that he will. Discharged home with return precautions. Patient verbalize understanding instructions and agreement with plan. Initial ECG Impression Date: Aug 02, 2019 Initial ECG Impression Time: 06:13 Initial ECG Rate: 61 Initial ECG Rhythm: Normal Sinus Initial ECG Intervals: Normal Initial ECG Impression: Normal Initial ECG Comparisson: Unchanged (07/31/19) Comment Normal sinus rhythm with normal axis. No evidence of ST elevation RI. Unchanged from previous. Interpreted by me. Diagnostic Imaging Diagonstic Imaging: Xray Plain Films/CT/US/NM/MRI: chest Comments [facility], [place] NAME: CIPRIANO PATRICK [facility] REC#: [id number] PT STATUS: REG ER : 1975 PHYSICIAN: ELLIS BOYD MD ADMIT DATE: 08/02/19/ER Draft Date of Exam:08/02/19 CHEST 1 VIEW, AP/PA ONLY INDICATION: Chest pain. FINDINGS: The heart size, mediastinal configuration, and pulmonary vascularity are within normal limits. There is no pleural effusion, pneumothorax, or pneumonia. The osseous structures are unremarkable. IMPRESSION: No acute cardiopulmonary abnormality. Dictated on workstation # [id number] Dict: 08/02/19631 Trans: 08/02/19 0633 [id number] Interpreted by: MATHEUS FINE MD Electronically signed by: Departure Impression Primary Impression: Atypical chest pain Additional Impression: Anxiety about health Disposition: 01 HOME, SELF-CARE Condition: Improved Departure-Patient Inst. Decision time for Depature: 07:55 Referrals: DI BECKFORD MD (PCP/Family) Primary Care Physician Patient Instructions: Anxiety, Adult (DC), Chest Pain (DC) Add. Discharge Instructions: All discharge instructions reviewed with patient and/or family. Voiced understanding. Take medications as directed. Call your psychiatrist tomorrow morning for appointment this week. Let her know that you were started on Celexa 20 mg daily. Follow-up with your primary care doctor as well. Please return for any worsening of your symptoms as you may need further help with your anxiety. Scripts Citalopram Hydrobromide (Celexa) 20 Mg Tablet 20 MG PO DAILY for 30 Days, #30 TAB 0 Refills Prov: ELLIS BOYD MD 08/02/19 Copy Copies To 1: DI BECKFORD MD, TIMOTHY D MD Aug 02, 2019 07:19
--- NOTE | 2019-08-02 07:34 | NUR ---
IN TALKING WITH PT DUE TO PT CHANGING HIS MIND ABOUT BEING ADMITTED TO PSYCH.
[2019-08-02] MEDS ORDERED: CITA20TA12 PO (07:57)
[2019-08-02 08:04] VITALS: BP 149/103
--- OUTSIDE RECORDS SUMMARY | 2019-08-10 09:15 | XMS REPORT | Continuity of Care Document ---
Author Organization Unknown Address Unknown Phone Unavailable Allergies Active Description Code Type Severity Reaction Onset Reported/Identified Relationship to Patient Clinical Status Yes No Known Drug Allergies [id number] Drug Allergy Unknown N/A 01/16/2018 Medications There is no data. 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 [...] LEG 01/16/2018 ELLIS BOYD MD Ot Z79.01 CUSTODIAL (CURRENT) USE OF ANTICOAGULANT 01/20/2018 ELLIS BOYD MD Ot E78.00 PURE HYPERCHOLESTEROLEMIA, UNSPECIFIED 01/20/2018 ELLIS BOYD MD, Ot F41.9 ANXIETY DISORDER, UNSPECIFIED 01/20/2018 ELLIS BOYD MD Ot I82.402 ACUTE EMBOLISM AND THOMBOS UNSP DEEP VEI 01/20/2018 ELLIS BOYD MD Ot M79.662 PAIN IN LEFT LOWER LEG 01/20/2018 ELLIS BOYD MD Ot Z79.01 CUSTODIAL (CURRENT) USE OF ANTICOAGULANT 01/20/2018 MARY SNYDER APRN Ot E78.00 PURE HYPERCHOLESTEROLEMIA, UNSPECIFIED 01/20/2018 MARY SNYDER APRN Ot F41 .9 ANXIETY DISORDER, UNSPECIFIED 01/20/2018 MARY SNYDER APRN Ot I26.99 OTHER PULMONARY EMBOLISM WITHOUT ACUTE C 01/20/2018 MARY SNYDER APRN Ot R07.89 OTHER CHEST PAIN 01/20/2018 MARY SNYDER APRN Ot Z79.01 AIRLINE COUNTER AGENT (CURRENT) USE OF ANTICOAGULANT 01/20/2018 MARY SNYDER APRN Ot 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 02/03/2018 Ot E78.00 PUR E HYPERCHOLESTEROLEMIA, UNSPECIFIED 02/03/2018 Ot F41.9 ANXI ETY DISORDER, UNSPECIFIED 02/03/2018 Ot R07.89 OT ER CHEST PAIN 02/03/2018 Ot Z86.718 PE RSONAL HISTORY OF OTHER VENOUS THROMBO 02/21/2018 NOEMY MURDOCK MD Ot E78.5 HYPERLIPIDEMIA, UNSPECIFIED 02/21/2018 NOEMY MURDOCK MD Ot I26.99 OTHER PULMONARY EMBOLISM WITHOUT ACUTE C 02/21/2018 NOEMY MURDOCK MD Ot I82.402 ACUTE EMBOLISM AND THOMBOS UNSP DEEP VEI 02/21/2018 NOEMY MURDOCK MD Ot Z79.01 CUSTODIAL (CURRENT) USE OF ANTICOAGULANT 02/21/2018 NOEMY MURDOCK MD Ot Z79.899 OTHER AIRLINE COUNTER AGENT (CURRENT) DRUG THERAPY 03/05/2018 NOEMY MURDOCK MD Ot E78.5 HYPERLIPIDEMIA, UNSPECIFIED 03/05/2018 NOEMY MURDOCK MD Ot I26.99 OTHER PULMONARY EMBOLISM WITHOUT ACUTE C 03/05/2018 NOEMY MURDOCK MD Ot I82.402 ACUTE EMBOLISM AND THOMBOS UNSP DEEP VEI 03/05/2018 NOEMY MURDOCK MD Ot Z79.01 AIRLINE COUNTER AGENT (CURRENT) USE OF ANTICOAGULANT 03/05/2018 NOEMY MURDOCK MD Ot Z79.899 OTHER AIRLINE COUNTER AGENT (CURRENT) DRUG THERAPY 03/13/2018 MARY SNYDER APRN Ot E78.00 PURE HYPERCHOLESTEROLEMIA, UNSPECIFIED 03/13/2018 MARY SNYDER APRN Ot F41 .9 ANXIETY DISORDER, UNSPECIFIED 03/13/2018 MARY SNYDER APRN Ot R07.89 OTHER CHEST PAIN 03/13/2018 MARY SNYDER APRN Ot Z79.01 CUSTODIAL (CURRENT) USE OF ANTICOAGULANT 03/13/2018 MARY SNYDER APRN Ot 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 03/17/2018 SNYDER, PETER J MASTICATOR Ot E78.00 PURE HYPERCHOLESTEROLEMIA, UNSPECIFIED 03/17/2018 MARY SNYDER MASTICATOR Ot F41 .9 ANXIETY DISORDER, UNSPECIFIED 03/17/2018 MARY SNYDER MASTICATOR Ot R07.89 OTHER CHEST PAIN 03/17/2018 MARY SNYDER MASTICATOR Ot Z79.01 CUSTODIAL (CURRENT) USE OF ANTICOAGULANT 03/17/2018 MARY SNYDER MASTICATOR Ot 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 03/21/2018 DI BECKFORD MD Ot 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 00 PURE HYPERCHOLESTEROLEMIA, UNSPECIFIED 03/24/2018 DUNG GAINES MD Ot F41. 0 PANIC DISORDER [EPISODIC PAROXYSMAL ANXI 03/24/2018 DUNG GAINES MD Ot F41. 9 ANXIETY DISORDER, UNSPECIFIED 03/24/2018 DUNG GAINES MD Ot Z79. 01 AIRLINE COUNTER AGENT (CURRENT) USE OF ANTICOAGULANT 03/24/2018 DUNG GAINES MD Ot 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 03/26/2018 DUNG GAINES MD Ot E78. 00 PURE HYPERCHOLESTEROLEMIA, UNSPECIFIED 03/26/2018 DUNG GAINES MD Ot F41. 0 PANIC DISORDER [EPISODIC PAROXYSMAL ANXI 03/26/2018 DUNG GAINES MD Ot F41. 9 ANXIETY DISORDER, UNSPECIFIED 03/26/2018 DUNG GAINES MD Ot Z79. 01 CUSTODIAL (CURRENT) USE OF ANTICOAGULANT 03/26/2018 DUNG GAINES MD Ot 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 03/30/2018 DUNG GAINES MD Ot E78. 00 PURE HYPERCHOLESTEROLEMIA, UNSPECIFIED 03/30/2018 DUNG GAINES MD Ot F41. 0 PANIC DISORDER [EPISODIC PAROXYSMAL ANXI 03/30/2018 DUNG GAINES MD Ot F41. 9 ANXIETY DISORDER, UNSPECIFIED 03/30/2018 DUNG GAINES MD Ot Z79. 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 01 AIRLINE COUNTER AGENT (CURRENT) USE OF ANTICOAGULANT 04/08/2018 DI BECKFORD MD, Ot I82.409 ACUTE EMBOLISM AND THOMBOS UNSP DEEP VN 04/08/2018 DI BECKFORD MD, Ot Z79. 01 AIRLINE COUNTER AGENT (CURRENT) USE OF ANTICOAGULANT 05/07/2018 ONEIDA AQUINO MD Ot I26. 99 OTHER PULMONARY EMBOLISM WITHOUT ACUTE C 05/07/2018 ONEIDA AQUINO MD Ot I82.409 ACUTE EMBOLISM AND THOMBOS UNSP DEEP VN 05/07/2018 ONEIDA AQUINO MD Ot R07. 89 OTHER CHEST PAIN 06/02/2018 DI BECFKORD MD, Ot I82.402 ACUTE EMBOLISM AND THOMBOS UNSP DEEP VEI 06/02/2018 DI BECKFORD MD, Ot Z79. 01 AIRLINE COUNTER AGENT (CURRENT) USE OF ANTICOAGULANT 06/05/2018 DI BECKFORD MD Ot L04. 0 ACUTE LYMPHADENITIS OF FACE, HEAD AND NE 06/20/2018 DI BECKFORD MD Ot L04. 0 ACUTE LYMPHADENITIS OF FACE, HEAD AND NE 06/27/2018 DI BECKFORD MD, Ot I82.402 ACUTE EMBOLISM AND THOMBOS UNSP DEEP VEI 06/27/2018 DI BECKFORD MD, Ot Z79. 01 AIRLINE COUNTER AGENT (CURRENT) USE OF ANTICOAGULANT 07/01/2018 NOEMY MURDOCK MD Ot E78.5 HYPERLIPIDEMIA, UNSPECIFIED 07/01/2018 NOEMY MURDOCK MD Ot I26.99 OTHER PULMONARY EMBOLISM WITHOUT ACUTE C 07/01/2018 NOEMY MURDOCK MD Ot I82.402 ACUTE EMBOLISM AND THOMBOS UNSP DEEP VEI 07/01/2018 NOEMY MURDOCK MD Ot Z79.01 AIRLINE COUNTER AGENT (CURRENT) USE OF ANTICOAGULANT 07/01/2018 NOEMY MURDOCK MD, Ot Z79.899 OTHER CUSTODIAL (CURRENT) DRUG THERAPY 07/03/2018 NOEMY MURDOCK MD Ot E78.5 HYPERLIPIDEMIA, UNSPECIFIED 07/03/2018 NOEMY MURDOCK MD Ot I26.99 OTHER PULMONARY EMBOLISM WITHOUT ACUTE C 07/03/2018 NOEMY MURDOCK MD, Ot I82.402 ACUTE EMBOLISM AND THOMBOS UNSP DEEP VEI 07/03/2018 NOEMY MURDOCK MD Ot Z79.01 AIRLINE COUNTER AGENT (CURRENT) USE OF ANTICOAGULANT 07/03/2018 NOEMY MURDOCK MD, Ot Z79.899 OTHER CUSTODIAL (CURRENT) DRUG THERAPY 07/04/2018 NOEMY MURDOCK MD Ot E78.5 HYPERLIPIDEMIA, UNSPECIFIED 07/04/2018 NOEMY MURDOCK MD Ot I26.99 OTHER PULMONARY EMBOLISM WITHOUT ACUTE C 07/04/2018 NOEMY MURDOCK MD Ot I82.402 ACUTE EMBOLISM AND THOMBOS UNSP DEEP VEI 07/04/2018 NOEMY MURDOCK MD Ot Z79.01 AIRLINE COUNTER AGENT (CURRENT) USE OF ANTICOAGULANT 07/04/2018 NOEMY MURDOCK MD, Ot Z79.899 OTHER AIRLINE COUNTER AGENT (CURRENT) DRUG THERAPY 07/07/2018 NOEMY MURDOCK MD, Ot E78.5 HYPERLIPIDEMIA, UNSPECIFIED 07/07/2018 NOEMY MURDOCK MD Ot I26.99 OTHER PULMONARY EMBOLISM WITHOUT ACUTE C 07/07/2018 NOEMY MURDOCK MD, Ot I82.402 ACUTE EMBOLISM AND THOMBOS UNSP DEEP VEI 07/07/2018 NOEMY MURDOCK MD, Ot Z79.01 AIRLINE COUNTER AGENT (CURRENT) USE OF ANTICOAGULANT 07/07/2018 NOEMY MURDOCK MD, Ot Z79.899 OTHER CUSTODIAL (CURRENT) DRUG THERAPY 08/06/2018 MOOK MILLER MD Ot K42.9 UMBILICAL HERNIA WITHOUT OBSTRUCTION OR 08/06/2018 MOOK MILLER MD, Ot K57.3 0 DVRTCLOS OF LG INT W/O PERFORATION OR AB 08/06/2018 MOOK MILLER MD Ot R31.0 GROSS HEMATURIA 08/06/2018 ONEIDA AQUINO MD Ot I26. 99 OTHER PULMONARY EMBOLISM WITHOUT ACUTE C 08/06/2018 ONEIDA AQUINO MD Ot I82.409 ACUTE EMBOLISM AND THOMBOS UNSP DEEP VN 08/06/2018 ONEIDA AQUINO MD Ot R07. 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 01 CUSTODIAL (CURRENT) USE OF ANTICOAGULANT 08/06/2018 DI BECKFORD MD, Ot L04. 0 ACUTE LYMPHADENITIS OF FACE, HEAD AND NE 08/06/2018 NOEMY MURDOCK MD Ot E78.5 HYPERLIPIDEMIA, UNSPECIFIED 08/06/2018 NOEMY MURDOCK MD, Ot I26.99 OTHER PULMONARY EMBOLISM WITHOUT ACUTE C 08/06/2018 NOEMY MURDOCK MD Ot I82.402 ACUTE EMBOLISM AND THOMBOS UNSP DEEP VEI 08/06/2018 NOEMY MURDOCK MD, Ot Z79.01 CUSTODIAL (CURRENT) USE OF ANTICOAGULANT 08/06/2018 NOEMY MURDOCK MD, Ot Z79.899 OTHER CUSTODIAL (CURRENT) DRUG THERAPY 08/06/2018 MARY SNYDER APRN Ot E78.00 PURE HYPERCHOLESTEROLEMIA, UNSPECIFIED 08/06/2018 MARY SNYDER APRN Ot F41 .9 ANXIETY DISORDER, UNSPECIFIED 08/06/2018 MARY SNYDER APRN Ot R07.89 OTHER CHEST PAIN 08/06/2018 MARY SNYDER APRN Ot Z86.711 PERSONAL HISTORY OF PULMONARY EMBOLISM 08/06/2018 MARY SNYDER APRN Ot 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 08/06/2018 MOOK MILLER MD Ot K42.9 UMBILICAL HERNIA WITHOUT OBSTRUCTION OR 08/06/2018 MOOK MILLER MD Ot K57.3 0 DVRTCLOS OF LG INT W/O PERFORATION OR AB 08/06/2018 MOOK MILLER MD Ot R31.0 GROSS HEMATURIA 08/06/2018 ONEIDA AQUINO MD, Ot I26. 99 OTHER PULMONARY EMBOLISM WITHOUT ACUTE C 08/06/2018 ONEIDA AQUINO MD, Ot I82.409 ACUTE EMBOLISM AND THOMBOS UNSP DEEP VN 08/06/2018 ONEIDA AQUINO MD Ot R07. 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 01 CUSTODIAL (CURRENT) USE OF ANTICOAGULANT 08/06/2018 SHAKEEL MD, DI J Ot L04. 0 ACUTE LYMPHADENITIS OF FACE, HEAD AND NE 08/06/2018 NOEMY MURDOCK MD Ot E78.5 HYPERLIPIDEMIA, UNSPECIFIED 08/06/2018 NOEMY MURDOCK MD Ot I26.99 OTHER PULMONARY EMBOLISM WITHOUT ACUTE C 08/06/2018 NOEMY MURDOCK MD Ot I82.402 ACUTE EMBOLISM AND THOMBOS UNSP DEEP VEI 08/06/2018 NOEMY MURDOCK MD Ot Z79.01 CUSTODIAL (CURRENT) USE OF ANTICOAGULANT 08/06/2018 NOEMY MURDOCK MD, Ot Z79.899 OTHER CUSTODIAL (CURRENT) DRUG THERAPY 08/11/2018 MARY SNYDER APRN Ot E78.00 PURE HYPERCHOLESTEROLEMIA, UNSPECIFIED 08/11/2018 MARY SNYDER MASTICATOR Ot F41 .9 ANXIETY DISORDER, UNSPECIFIED 08/11/2018 MARY SNYDER MASTICATOR Ot R07.89 OTHER CHEST PAIN 08/11/2018 MARY SNYDER MASTICATOR Ot Z86.711 PERSONAL HISTORY OF PULMONARY EMBOLISM 08/11/2018 MARY SNYDER MASTICATOR Ot 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 08/11/2018 MARY SNYDER MASTICATOR Ot E78.00 PURE HYPERCHOLESTEROLEMIA, UNSPECIFIED 08/11/2018 MARY SNYDER MASTICATOR Ot F41 .9 ANXIETY DISORDER, UNSPECIFIED 08/11/2018 MARY SNYDER MASTICATOR Ot R07.89 OTHER CHEST PAIN 08/11/2018 MARY SNYDER APRN Ot Z86.711 PERSONAL HISTORY OF PULMONARY EMBOLISM 08/11/2018 MARY SNYDER MASTICATOR Ot 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 08/15/2018 NOEMY MURDOCK MD, Ot E78.5 HYPERLIPIDEMIA, UNSPECIFIED 08/15/2018 NOEMY MURDOCK MD Ot I26.99 OTHER PULMONARY EMBOLISM WITHOUT ACUTE C 08/15/2018 NOEMY MURDOCK MD Ot I82.402 ACUTE EMBOLISM AND THOMBOS UNSP DEEP VEI 08/15/2018 NOEMY MURDOCK MD Ot Z79.01 CUSTODIAL (CURRENT) USE OF ANTICOAGULANT 08/15/2018 NOEMY MURDOCK MD Ot Z79.899 OTHER AIRLINE COUNTER AGENT (CURRENT) DRUG THERAPY 09/02/2018 MOOK MILLER MD Ot K42.9 UMBILICAL HERNIA WITHOUT OBSTRUCTION OR 09/02/2018 MOOK MILLER MD Ot K57.3 0 DVRTCLOS OF LG INT W/O PERFORATION OR AB 09/02/2018 MOOK MILLER MD Ot R31.0 GROSS HEMATURIA 09/02/2018 ONEIDA AQUINO MD Ot I26. 99 OTHER PULMONARY EMBOLISM WITHOUT ACUTE C 09/02/2018 ONEIDA AQUINO MD Ot I82.409 ACUTE EMBOLISM AND THOMBOS UNSP DEEP VN 09/02/2018 ONEIDA AQUINO MD Ot R07. 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 01 CUSTODIAL (CURRENT) USE OF ANTICOAGULANT 09/02/2018 DI BECKFORD MD Ot L04. 0 ACUTE LYMPHADENITIS OF FACE, HEAD AND NE 09/02/2018 NOEMY MURDOCK MD Ot E78.5 HYPERLIPIDEMIA, UNSPECIFIED 09/02/2018 NOEMY MURDOCK MD Ot I26.99 OTHER PULMONARY EMBOLISM WITHOUT ACUTE C 09/02/2018 NOEMY MURDOCK MD Ot I82.402 ACUTE EMBOLISM AND THOMBOS UNSP DEEP VEI 09/02/2018 NOEMY MURDOCK MD Ot Z79.01 AIRLINE COUNTER AGENT (CURRENT) USE OF ANTICOAGULANT 09/02/2018 NOEMY MURDOCK MD Ot Z79.899 OTHER AIRLINE COUNTER AGENT (CURRENT) DRUG THERAPY 09/04/2018 DI BECKFORD MD Ot R07. 9 CHEST PAIN, UNSPECIFIED 09/06/2018 MOOK MILLER MD Ot K42.9 UMBILICAL HERNIA WITHOUT OBSTRUCTION OR 09/06/2018 MOOK MILLER MD Ot K57.3 0 DVRTCLOS OF LG INT W/O PERFORATION OR AB 09/06/2018 MOOK MILLER MD Ot R31.0 GROSS HEMATURIA 09/06/2018 ONEIDA AQUINO MD Ot I26. 99 OTHER PULMONARY EMBOLISM WITHOUT ACUTE C 09/06/2018 ONEIDA AQUINO MD Ot I82.409 ACUTE EMBOLISM AND THOMBOS UNSP DEEP VN 09/06/2018 ONEIDA AQUINO MD Ot R07. 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 01 CUSTODIAL (CURRENT) USE OF ANTICOAGULANT 09/06/2018 DI BECKFORD MD Ot L04. 0 ACUTE LYMPHADENITIS OF FACE, HEAD AND NE 09/06/2018 NOEMY MURDOCK MD Ot E78.5 HYPERLIPIDEMIA, UNSPECIFIED 09/06/2018 NOEMY MURDOCK MD Ot I26.99 OTHER PULMONARY EMBOLISM WITHOUT ACUTE C 09/06/2018 NOEMY MURDOCK MD Ot I82.402 ACUTE EMBOLISM AND THOMBOS UNSP DEEP VEI 09/06/2018 NOEMY MURDOCK MD Ot Z79.01 CUSTODIAL (CURRENT) USE OF ANTICOAGULANT 09/06/2018 NOEMY MURDOCK MD Ot Z79.899 OTHER AIRLINE COUNTER AGENT (CURRENT) DRUG THERAPY 09/06/2018 DI BECFKORD MD Ot R07. 9 CHEST PAIN, UNSPECIFIED 09/06/2018 GLEN KENNY MD Ot E78.00 PURE HYPERCHOLESTEROLEMIA, UNSPECIFIED 09/06/2018 GLEN KENNY MD Ot F41 .9 ANXIETY DISORDER, UNSPECIFIED 09/06/2018 GLEN KENNY MD Ot R07.81 PLEURODYNIA 09/06/2018 GLEN KENNY MD Ot R07 .9 CHEST PAIN, UNSPECIFIED 09/06/2018 GLEN KENNY MD Ot Z82.49 FAMILY HX OF ISCHEM HEART DIS AND OTH DI 09/06/2018 GLEN KENNY MD Ot Z86.711 PERSONAL HISTORY OF PULMONARY EMBOLISM 09/06/2018 GLEN KENNY MD Ot 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 09/12/2018 GLEN KENNY MD Ot E78.00 PURE HYPERCHOLESTEROLEMIA, UNSPECIFIED 09/12/2018 GLEN KENNY MD Ot F41 .9 ANXIETY DISORDER, UNSPECIFIED 09/12/2018 GLEN KENNY MD Ot R07.81 PLEURODYNIA 09/12/2018 GLEN KENNY MD Ot R07 .9 CHEST PAIN, UNSPECIFIED 09/12/2018 GLEN KENNY MD Ot Z82.49 FAMILY HX OF ISCHEM HEART DIS AND OTH DI 09/12/2018 GLEN KENNY MD Ot Z86.711 PERSONAL HISTORY OF PULMONARY EMBOLISM 09/12/2018 GLEN KENNY MD Ot 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 10/02/2018 NOEMY MURDOCK MD Ot E78.5 HYPERLIPIDEMIA, UNSPECIFIED 10/02/2018 NOEMY MURDOCK MD Ot I26.99 OTHER PULMONARY EMBOLISM WITHOUT ACUTE C 10/02/2018 NOEMY MURDOCK MD Ot I82.402 ACUTE EMBOLISM AND THOMBOS UNSP DEEP VEI 10/02/2018 NOEMY MURDOCK MD Ot Z79.01 AIRLINE COUNTER AGENT (CURRENT) USE OF ANTICOAGULANT 10/02/2018 NOEMY MURDOCK MD Ot Z79.899 OTHER AIRLINE COUNTER AGENT (CURRENT) DRUG THERAPY 10/03/2018 NOEMY MURDOCK MD Ot E78.5 HYPERLIPIDEMIA, UNSPECIFIED 10/03/2018 NOEMY MURDOCK MD Ot I26.99 OTHER PULMONARY EMBOLISM WITHOUT ACUTE C 10/03/2018 NOEMY MURDOCK MD Ot I82.402 ACUTE EMBOLISM AND THOMBOS UNSP DEEP VEI 10/03/2018 NOEMY MURDOCK MD Ot Z79.01 CUSTODIAL (CURRENT) USE OF ANTICOAGULANT 10/03/2018 NOEMY MURDOCK MD Ot Z79.899 OTHER CUSTODIAL (CURRENT) DRUG THERAPY 10/03/2018 NOEMY MURDOCK MD Ot E78.5 HYPERLIPIDEMIA, UNSPECIFIED 10/03/2018 NOEMY MURDOCK MD Ot I26.99 OTHER PULMONARY EMBOLISM WITHOUT ACUTE C 10/03/2018 NOEMY MURDOCK MD Ot I82.402 ACUTE EMBOLISM AND THOMBOS UNSP DEEP VEI 10/03/2018 NOEMY MURDOCK MD Ot Z79.01 CUSTODIAL (CURRENT) USE OF ANTICOAGULANT 10/03/2018 NOEMY MURDOCK MD Ot Z79.899 OTHER AIRLINE COUNTER AGENT (CURRENT) DRUG THERAPY 10/14/2018 ONEIDA AQUINO MD Ot I26. 99 OTHER PULMONARY EMBOLISM WITHOUT ACUTE C 10/14/2018 ONEIDA AQUINO MD Ot R07. 89 OTHER CHEST PAIN 10/29/2018 ONEIDA AQUINO MD Ot I26. 99 OTHER PULMONARY EMBOLISM WITHOUT ACUTE C 10/29/2018 ONEIDA AQUINO MD Ot R07. 89 OTHER CHEST PAIN 11/18/2018 JAN LANGE, VIGNESH Garner Ot E78.00 PURE HYPERCHOLESTEROLEMIA, UNSPECIFIED 11/18/2018 VIGNESH MONTOYA MD Ot F41.9 ANXIETY DISORDER, UNSPECIFIED 11/18/2018 VIGNESH MONTOYA MD Ot Z82.49 FAMILY HX OF ISCHEM HEART DIS AND OTH DI 11/18/2018 VIGNESH MONTOYA MD Ot Z86.711 PERSONAL HISTORY OF PULMONARY EMBOLISM 11/18/2018 VIGNESH MONTOYA MD Ot 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 11/21/2018 VIGNESH MONTOYA MD Ot E78.00 PURE HYPERCHOLESTEROLEMIA, UNSPECIFIED 11/21/2018 VIGNESH MONTOYA MD Ot F41.9 ANXIETY DISORDER, UNSPECIFIED 11/21/2018 VIGNESH MONTOYA MD Ot Z82.49 FAMILY HX OF ISCHEM HEART DIS AND OTH DI 11/21/2018 VIGNESH MONTOYA MD Ot Z86.711 PERSONAL HISTORY OF PULMONARY EMBOLISM 11/21/2018 VIGNESH MONTOYA MD T Ot 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 12/10/2018 ELLIS BOYD MD Ot F41.9 ANXIETY DISORDER, UNSPECIFIED 12/10/2018 ELLIS BOYD MD Ot R07.89 OTHER CHEST PAIN 12/10/2018 ELLIS BOYD MD Ot R07.9 CHEST PAIN, UNSPECIFIED 01/01/2019 ELLIS BOYD MD Ot F41.9 ANXIETY DISORDER, UNSPECIFIED 01/01/2019 ELLIS BOYD MD Ot R07.89 OTHER CHEST PAIN 01/01/2019 ELLIS BOYD MD Ot R07.9 CHEST PAIN, UNSPECIFIED 01/22/2019 JENNIFER NARAYAN MASTICATOR Ot E78.49 OTHER HYPERLIPIDEMIA 01/22/2019 JENNIFER NARAYAN MASTICATOR Ot F32 .9 MAJOR DEPRESSIVE DISORDER, SINGLE EPISOD 01/22/2019 JENNIFER NARAYAN MASTICATOR Ot F41 .9 ANXIETY DISORDER, UNSPECIFIED 01/22/2019 JENNIFER NARAYAN MASTICATOR Ot J30.89 OTHER ALLERGIC RHINITIS 01/22/2019 JENNIFER NARAYAN MASTICATOR Ot M54.14 RADICULOPATHY, THORACIC REGION 01/22/2019 JENNIFER NARAYAN MASTICATOR Ot R03 .0 ELEVATED BLOOD-PRESSURE READING, W/O ARSEN 01/22/2019 JENNIFER NARAYAN L MASTICATOR Ot R07.89 OTHER CHEST PAIN 01/22/2019 JENNIFER NARAYAN MASTICATOR Ot R20 .2 PARESTHESIA OF SKIN 01/22/2019 JENNIFER NARAYAN MASTICATOR Ot S46.812A STRAIN OF MUSC/FASC/TEND AT [facility]/ ARM 01/22/2019 JENNIFER NARAYAN L MASTICATOR Ot T14.8XXA OTHER INJURY OF UNSPECIFIED BODY REGION, 01/22/2019 JENNIFER NARAYAN L MASTICATOR Ot 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 01/22/2019 JENNIFER NARAYAN L MASTICATOR Ot E78.49 OTHER HYPERLIPIDEMIA 01/22/2019 JENNIFER NARAYAN L MASTICATOR Ot F32 .9 MAJOR DEPRESSIVE DISORDER, SINGLE EPISOD 01/22/2019 JENNIFER NARAYAN L MASTICATOR Ot F41 .9 ANXIETY DISORDER, UNSPECIFIED 01/22/2019 JENNIFER NARAYAN L MASTICATOR Ot J30.89 OTHER ALLERGIC RHINITIS 01/22/2019 JENNIFER NARAYAN L MASTICATOR Ot M54.14 RADICULOPATHY, THORACIC REGION 01/22/2019 JENNIFER NARAYAN L MASTICATOR Ot R03 .0 ELEVATED BLOOD-PRESSURE READING, W/O ARSEN 01/22/2019 JENNIFER NARAYAN L MASTICATOR Ot R07.89 OTHER CHEST PAIN 01/22/2019 JENNIFER NARAYAN L MASTICATOR Ot R20 .2 PARESTHESIA OF SKIN 01/22/2019 JENNIFER NARAYAN L MASTICATOR Ot S46.812A STRAIN OF MUSC/FASC/TEND AT [facility]/ ARM 01/22/2019 JENNIFER NARAYAN L MASTICATOR Ot T14.8XXA OTHER INJURY OF UNSPECIFIED BODY REGION, 01/22/2019 NARAYANJENNIFER L MASTICATOR Ot 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 01/23/2019 NWAGWUSHON O MASTICATOR Ot Z01.89 ENCOUNTER FOR OTHER SPECIFIED SPECIAL EX 01/23/2019 PAUL LANGE, MOOK Brown Ot K42.9 UMBILICAL HERNIA WITHOUT OBSTRUCTION OR 01/23/2019 MOOK MILLER MD Ot K57.3 0 DVRTCLOS OF LG INT W/O PERFORATION OR AB 01/23/2019 PAUL LANGE, MOOK Brown Ot R31.0 GROSS HEMATURIA 01/23/2019 ONEIDA AQUINO MD Ot I26. 99 OTHER PULMONARY EMBOLISM WITHOUT ACUTE C 01/23/2019 KENIA LANGE, ONEIDA Christianson Ot R07. 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 01 AIRLINE COUNTER AGENT (CURRENT) USE OF ANTICOAGULANT 01/23/2019 DI BECKFORD MD Ot L04. 0 ACUTE LYMPHADENITIS OF FACE, HEAD AND NE 01/23/2019 DI BECKFORD MD Ot R07. 9 CHEST PAIN, UNSPECIFIED 01/23/2019 NOEMY MURDOCK MD Ot E78.5 HYPERLIPIDEMIA, UNSPECIFIED 01/23/2019 NOEMY MURDOCK MD Ot I26.99 OTHER PULMONARY EMBOLISM WITHOUT ACUTE C 01/23/2019 NOEMY MURDOCK MD Ot I82.402 ACUTE EMBOLISM AND THOMBOS UNSP DEEP VEI 01/23/2019 NOEMY MURDOCK MD Ot Z79.01 AIRLINE COUNTER AGENT (CURRENT) USE OF ANTICOAGULANT 01/23/2019 NOEMY MURDOCK MD Ot Z79.899 OTHER AIRLINE COUNTER AGENT (CURRENT) DRUG THERAPY 01/23/2019 JENNIFER NARAYAN MASTICATOR Ot E78.49 OTHER HYPERLIPIDEMIA 01/23/2019 JENNIFER NARAYAN MASTICATOR Ot F32 .9 MAJOR DEPRESSIVE DISORDER, SINGLE EPISOD 01/23/2019 JENNIFER NARAYAN MASTICATOR Ot F41 .9 ANXIETY DISORDER, UNSPECIFIED 01/23/2019 JENNIFER NARAYAN MASTICATOR Ot J30.89 OTHER ALLERGIC RHINITIS 01/23/2019 JENNIFER NARAYAN MASTICATOR Ot M54.14 RADICULOPATHY, THORACIC REGION 01/23/2019 JENNIFER NARAYAN MASTICATOR Ot R03 .0 ELEVATED BLOOD-PRESSURE READING, W/O ARSEN 01/23/2019 JENNIFER NARAYAN MASTICATOR Ot R07.89 OTHER CHEST PAIN 01/23/2019 JENNIFER NARAYAN MASTICATOR Ot R20 .2 PARESTHESIA OF SKIN 01/23/2019 NARAYANJENNIFER WATERS L MASTICATOR Ot S46.812A STRAIN OF [facility]/FASC/TEND AT [facility] ARM 01/23/2019 BARBIE NARAYANI L MASTICATOR Ot T14.8XXA OTHER INJURY OF UNSPECIFIED BODY REGION, 01/23/2019 BARBIE NARAYANI L MASTICATOR Ot 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 01/26/2019 NARAYANBARBIE WATERSI L MASTICATOR Ot E78.49 OTHER HYPERLIPIDEMIA 01/26/2019 NARAYANBARBIEI L MASTICATOR Ot F32 .9 MAJOR DEPRESSIVE DISORDER, SINGLE EPISOD 01/26/2019 NARAYANBARBIE WATERSI L MASTICATOR Ot F41 .9 ANXIETY DISORDER, UNSPECIFIED 01/26/2019 HELENE JENNIFER L MASTICATOR Ot J30.89 OTHER ALLERGIC RHINITIS 01/26/2019 HELENE JENNIFER L MASTICATOR Ot M54.14 RADICULOPATHY, THORACIC REGION 01/26/2019 HELENE JENNIFER L MASTICATOR Ot R03 .0 ELEVATED BLOOD-PRESSURE READING, W/O ARSEN 01/26/2019 HELENE JENNIFER L MASTICATOR Ot R07.89 OTHER CHEST PAIN 01/26/2019 HELENE JENNIFER L MASTICATOR Ot R20 .2 PARESTHESIA OF SKIN 01/26/2019 NARAYANBARBIEI L MASTICATOR Ot S46.812A STRAIN OF [facility]/FASC/TEND AT [facility] ARM 01/26/2019 BARBIE NARAYANI L MASTICATOR Ot T14.8XXA OTHER INJURY OF UNSPECIFIED BODY REGION, 01/26/2019 NARAYANJENNIFER L MASTICATOR Ot 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 02/05/2019 HELENE JENNIFER L MASTICATOR Ot E78.49 OTHER HYPERLIPIDEMIA 02/05/2019 HELENE JENNIFER L MASTICATOR Ot F32 .9 MAJOR DEPRESSIVE DISORDER, SINGLE EPISOD 02/05/2019 HELENE JENNIFER L MASTICATOR Ot F41 .9 ANXIETY DISORDER, UNSPECIFIED 02/05/2019 HELENE JENNIFER L MASTICATOR Ot J30.89 OTHER ALLERGIC RHINITIS 02/05/2019 HELENE JENNIFER L MASTICATOR Ot M54.14 RADICULOPATHY, THORACIC REGION 02/05/2019 HELENE JENNIFER L MASTICATOR Ot R03 .0 ELEVATED BLOOD-PRESSURE READING, W/O ARSEN 02/05/2019 JENNIFER NARAYAN Yohan CARDENAS Ot R07.89 OTHER CHEST PAIN 02/05/2019 JENNIFER NARAYAN Yohan CARDENAS Ot R20 .2 PARESTHESIA OF SKIN 02/05/2019 JENNIFER NARAYAN Yohan MASTICATOR Ot S46.812A STRAIN OF MUSC/FASC/TEND AT SHLDR/UP ARM 02/05/2019 JENNIFER NARAYAN Yohan MASTICATOR Ot T14.8XXA OTHER INJURY OF UNSPECIFIED BODY REGION, 02/05/2019 JENNIFER NARAYAN Yohan MASTICATOR Ot 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 02/09/2019 SHAKEEL LANGE, DI Christianson Ot R07. 2 PRECORDIAL PAIN 02/13/2019 JESSICA ESPINO DOIC B Ot Z01.8 18 ENCOUNTER FOR OTHER PREPROCEDURAL EXAMIN 02/16/2019 JESSICA ESPINO DOIC B Ot E78.5 HYPERLIPIDEMIA, UNSPECIFIED 02/16/2019 KENZIE MCCULLOUGH RONNI B Ot K20.9 ESOPHAGITIS, UNSPECIFIED 02/16/2019 KENZIE MCCULLOUGH RONNI B Ot K29.7 0 GASTRITIS, UNSPECIFIED, WITHOUT BLEEDING 02/16/2019 JESSICA ESPINO DOIC B Ot K44.9 DIAPHRAGMATIC HERNIA WITHOUT OBSTRUCTION 02/16/2019 JESSICA ESPINO DOIC B Ot Z79.8 99 OTHER AIRLINE COUNTER AGENT (CURRENT) DRUG THERAPY 02/16/2019 JESSICA ESPINO DOIC B Ot Z82.4 9 FAMILY HX OF ISCHEM HEART DIS AND OTH DI 02/16/2019 JESSICA ESPINO DOIC B Ot Z83.3 FAMILY HISTORY OF DIABETES MELLITUS 02/16/2019 JESSICA ESPINO DOIC B Ot Z86.7 11 PERSONAL HISTORY OF PULMONARY EMBOLISM 02/16/2019 JESSICA ESPINO DOIC B Ot Z86.7 18 PERSONAL HISTORY OF OTHER VENOUS THROMBO 02/18/2019 KENZIE MCCULLOUGH RONNI B Ot Z01.8 18 ENCOUNTER FOR OTHER PREPROCEDURAL EXAMIN 03/09/2019 JESSICA ESPINO DOIC B Ot E78.5 HYPERLIPIDEMIA, UNSPECIFIED 03/09/2019 KENZIE MCCULLOUGH RONNI B Ot K20.9 ESOPHAGITIS, UNSPECIFIED 03/09/2019 KENZIE MCCULLOUGH RONNI B Ot K29.7 0 GASTRITIS, UNSPECIFIED, WITHOUT BLEEDING 03/09/2019 JESSICA ESPINO DOIC B Ot K44.9 DIAPHRAGMATIC HERNIA WITHOUT OBSTRUCTION 03/09/2019 DELMAN DO, RONNI B Ot Z79.8 99 OTHER AIRLINE COUNTER AGENT (CURRENT) DRUG THERAPY 03/09/2019 DELMAN DO, RONNI B Ot Z82.4 9 FAMILY HX OF ISCHEM HEART DIS AND OTH DI 03/09/2019 DELMAN DO, RONNI B Ot Z83.3 FAMILY HISTORY OF DIABETES MELLITUS 03/09/2019 DELMAN DO, RONNI B Ot Z86.7 11 PERSONAL HISTORY OF PULMONARY EMBOLISM 03/09/2019 DELMAN DO, RONNI B Ot Z86.7 18 PERSONAL HISTORY OF OTHER VENOUS THROMBO 03/13/2019 DELMAN DO, RONNI B Ot E78.5 HYPERLIPIDEMIA, UNSPECIFIED 03/13/2019 DELMAN DO, RONNI B Ot K20.9 ESOPHAGITIS, UNSPECIFIED 03/13/2019 DELMAN DO, RONNI B Ot K29.7 0 GASTRITIS, UNSPECIFIED, WITHOUT BLEEDING 03/13/2019 DELMAN DO, RONNI B Ot K44.9 DIAPHRAGMATIC HERNIA WITHOUT OBSTRUCTION 03/13/2019 DELMAN DO, RONNI B Ot Z79.8 99 OTHER CUSTODIAL (CURRENT) DRUG THERAPY 03/13/2019 DELMAN DO, RONNI B Ot Z82.4 9 FAMILY HX OF ISCHEM HEART DIS AND OTH DI 03/13/2019 DELMAN DO, RONNI B Ot Z83.3 FAMILY HISTORY OF DIABETES MELLITUS 03/13/2019 DELMAN DO, RONNI B Ot Z86.7 11 PERSONAL HISTORY OF PULMONARY EMBOLISM 03/13/2019 DELMAN DO, RONNI B Ot Z86.7 18 PERSONAL HISTORY OF OTHER VENOUS THROMBO 03/16/2019 DELMAN DO, RONNI B Ot E78.5 HYPERLIPIDEMIA, UNSPECIFIED 03/16/2019 DELMAN DO, RONNI B Ot K20.9 ESOPHAGITIS, UNSPECIFIED 03/16/2019 DELMAN DO, RONNI B Ot K29.7 0 GASTRITIS, UNSPECIFIED, WITHOUT BLEEDING 03/16/2019 DELMAN DO, RONNI B Ot K44.9 DIAPHRAGMATIC HERNIA WITHOUT OBSTRUCTION 03/16/2019 DELMAN DO, RONNI B Ot Z79.8 99 OTHER CUSTODIAL (CURRENT) DRUG THERAPY 03/16/2019 DELMAN DO, RONNI B Ot Z82.4 9 FAMILY HX OF ISCHEM HEART DIS AND OTH DI 03/16/2019 DELMAN DO, RONNI B Ot Z83.3 FAMILY HISTORY OF DIABETES MELLITUS 03/16/2019 KENZIE MCCULLOUGHRONNI Ot Z86.7 11 PERSONAL HISTORY OF PULMONARY EMBOLISM 03/16/2019 RONNI ESPINO DO Ot Z86.7 18 PERSONAL HISTORY OF OTHER VENOUS THROMBO 08/02/2019 MOOK MILLER MD Ot K42.9 UMBILICAL HERNIA WITHOUT OBSTRUCTION OR 08/02/2019 MOOK MILLER MD, Ot K57.3 0 DVRTCLOS OF LG INT W/O PERFORATION OR AB 08/02/2019 MOOK MILLER MD Ot R31.0 GROSS HEMATURIA 08/02/2019 ONEIDA AQUINO MD Ot I26. 99 OTHER PULMONARY EMBOLISM WITHOUT ACUTE C 08/02/2019 ONEIDA AQUINO MD Ot R07. 89 OTHER CHEST PAIN 08/02/2019 DI BECKFORD MD Ot 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, 08/02/2019 DI BECKFORD MD Ot I82.402 ACUTE EMBOLISM AND THOMBOS UNSP DEEP VEI 08/02/2019 DI BECKFORD MD Ot Z79. 01 CUSTODIAL (CURRENT) USE OF ANTICOAGULANT 08/02/2019 DI BECKFORD MD Ot L04. 0 ACUTE LYMPHADENITIS OF FACE, HEAD AND NE 08/02/2019 DI BECKFORD MD Ot R07. 9 CHEST PAIN, UNSPECIFIED 08/02/2019 NOEMY MURDOCK MD Ot E78.5 HYPERLIPIDEMIA, UNSPECIFIED 08/02/2019 NOEMY MURDOCK MD Ot I26.99 OTHER PULMONARY EMBOLISM WITHOUT ACUTE C 08/02/2019 NOEMY MURDOCK MD Ot I82.402 ACUTE EMBOLISM AND THOMBOS UNSP DEEP VEI 08/02/2019 NOEMY MURDOCK MD Ot Z79.01 AIRLINE COUNTER AGENT (CURRENT) USE OF ANTICOAGULANT 08/02/2019 NOEMY MURDOCK MD Ot Z79.899 OTHER AIRLINE COUNTER AGENT (CURRENT) DRUG THERAPY 08/02/2019 JENNIFER NARAYAN APRN Ot E78.49 OTHER HYPERLIPIDEMIA 08/02/2019 JENNIFER NARAYAN APRN Ot F32 .9 MAJOR DEPRESSIVE DISORDER, SINGLE EPISOD 08/02/2019 JENNIFER NARAYAN APRN Ot F41 .9 ANXIETY DISORDER, UNSPECIFIED 08/02/2019 NARAYAN, JENNIFER L MASTICATOR Ot J30.89 OTHER ALLERGIC RHINITIS 08/02/2019 JENNIFER NARAYAN MASTICATOR Ot M54.14 RADICULOPATHY, THORACIC REGION 08/02/2019 JENNIFER NARAYAN MASTICATOR Ot R03 .0 ELEVATED BLOOD-PRESSURE READING, W/O ARSEN 08/02/2019 JENNIFER NARAYAN MASTICATOR Ot R07.89 OTHER CHEST PAIN 08/02/2019 JENNIFER NARAYAN MASTICATOR Ot R20 .2 PARESTHESIA OF SKIN 08/02/2019 JENNIFER NARAYAN MASTICATOR Ot S46.812A STRAIN OF MUSC/FASC/TEND AT SHLDR/UP ARM 08/02/2019 JENNIFER NARAYAN MASTICATOR Ot T14.8XXA OTHER INJURY OF UNSPECIFIED BODY REGION, 08/02/2019 JENNIFER NARAYAN MASTICATOR Ot 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 08/02/2019 SHAKEEL LANGE, DI Christianson Ot R07. 2 PRECORDIAL PAIN 08/04/2019 JAN LANGE, VIGNESH Garner Ot E78.00 PURE HYPERCHOLESTEROLEMIA, UNSPECIFIED 08/04/2019 JAN LANGE, VIGNESH Garner Ot F41.9 ANXIETY DISORDER, UNSPECIFIED 08/04/2019 VIGNESH MONTOYA MD Ot R07.89 OTHER CHEST PAIN 08/04/2019 JAN LANGE, VIGNESH Garner Ot R07.9 CHEST PAIN, UNSPECIFIED 08/04/2019 VIGNESH MONTOYA MD Ot R20.2 PARESTHESIA OF SKIN 08/04/2019 VIGNESH MONTOYA MD Ot Z82.49 FAMILY HX OF ISCHEM HEART DIS AND OTH DI Procedures There is no data. Results Test Result Range PT panel in platelet poor plasma by coag ulation assay - 03/13/18 11:30 Prothrombin time (PT) in platelet poor plasma by coagu lation assay 27.8 s 12.2-14.7 INR in platelet poor plasma or blood by coagulation as say 2.6 0.8-1.4 Activated partial thromboplastin time (a PTT) in platelet poor plasma bycoagulation assay - 03/13/18 11:30 Activated partial thromboplastin time (a PTT) in platelet poor plasma bycoagulation assay 51 s 24-35 Complete blood count (CBC) with automate d white blood cell (WBC) differential - 03/13/18 11:30 Blood leukocytes automated count (number/volume) 6.9 10*3/uL 4.3-11.0 Blood erythrocytes automated count (number/volume) 4.22 10*6/uL 4.35-5.85 Venous blood hemoglobin measurement (mass/volume) 14.9 g/dL 13.3-17.7 Blood hematocrit (volume fraction) 38 % 40-54 Automated erythrocyte mean corpuscular volume 91 [ foz_us] 80-99 Automated erythrocyte mean corpuscular h emoglobin (mass per erythrocyte) 35 pg 25-34 Automated erythrocyte mean corpuscular h emoglobin concentration measurement (mass/volume) 39 g/dL 32-36 Automated erythrocyte distribution width ratio 12. 3 % 10.0- 14.5 Automated blood platelet count [...] 10*3 1.0-4.0 Blood monocytes automated count (number/volume) 0. 6 10*3 0.0-1.0 Automated eosinophil count 0.0 10*3/uL 0 .0-0.3 Automated blood basophil count (count/volume) 0.0 10*3/uL 0.0-0.1 Comprehensive metabolic panel - 03/13/18 11:30 Serum or plasma sodium measurement (moles/volume) 140 mmol/L 135-145 Serum or plasma potassium measurement (moles/volume) 3.8 mmol/L 3.6-5.0 Serum or plasma chloride measurement (moles/volume) 107 mmol/L 98-107 Carbon dioxide 23 mmol/L 21-32 Serum or plasma anion gap determination (moles/volume) 10 mmol/L 5-14 Serum or plasma urea nitrogen measurement (mass/volume ) 9 mg/dL 7-18 Serum or plasma creatinine measurement (mass/volume) 0.81 mg/dL 0.60-1.30 Serum or plasma urea nitrogen/creatinine mass ratio 11 NRG Serum or plasma creatinine measurement w ith calculation of estimated glomerular filtration rate > NRG Serum or plasma glucose measurement (mass/volume) 100 mg/dL 70-105 Serum or plasma calcium measurement (mass/volume) 9.8 mg/dL 8.5-10.1 Serum or plasma total bilirubin measurement (mass/volu me) 1.1 mg/dL 0.1-1.0 Serum or plasma alkaline phosphatase jackie surement (enzymatic activity/volume) 44 U/L 40-136 Serum or plasma aspartate aminotransfera se measurement (enzymatic activity/volume) 17 U/L 5-34 Serum or plasma alanine aminotransferase measurement (enzymatic activity/volume) 21 U/L 0-55 Serum or plasma protein measurement (mass/volume) 7.2 g/dL 6.4-8.2 Serum or plasma albumin measurement (mass/volume) 4.7 g/dL 3.2-4.5 Magnesium - 03/13/18 11:30 Magnesium 2.0 mg/dL 1.8-2.4 Serum or plasma troponin i.cardiac measu rement (mass/volume) - 03/13/18 11:30 Serum or plasma troponin i.cardiac measurement (mass/v olume) < ng/mL <0.30 Myoglobin, serum - 03/13/18 11:30 Myoglobin, serum 67.8 ng/mL 10.0-92.0 Serum or plasma lithium measurement (mol es/volume) - 03/13/18 11:30 BNP level 10.6 pg/mL <100.0 Complete blood count (CBC) with automate d white blood cell (WBC) differential - 08/06/18 12:40 Blood leukocytes automated count (number/volume) 9.8 10*3/uL 4.3-11.0 Blood erythrocytes automated count (number/volume) 4.68 10*6/uL 4.35-5.85 Venous blood hemoglobin measurement (mass/volume) 16.2 g/dL 13.3-17.7 Blood hematocrit (volume fraction) 44 % 40-54 Automated erythrocyte mean corpuscular volume 93 [ foz_us] 80-99 Automated erythrocyte mean corpuscular h emoglobin (mass per erythrocyte) 35 pg 25-34 Automated erythrocyte mean corpuscular h emoglobin concentration measurement (mass/volume) 37 g/dL 32-36 Automated erythrocyte distribution width ratio 12. 6 % 10.0- 14.5 Automated blood platelet count [...] 10*3 1.0-4.0 Blood monocytes automated count (number/volume) 0. 7 10*3 0.0-1.0 Automated eosinophil count 0.2 10*3/uL 0 .0-0.3 Automated blood basophil count (count/volume) 0.0 10*3/uL 0.0-0.1 PT panel in platelet poor plasma by coag ulation assay - 08/06/18 12:40 Prothrombin time (PT) in platelet poor plasma by coagu lation assay 13.1 s 12.2-14.7 INR in platelet poor plasma or blood by coagulation as say 1.0 0.8-1.4 Activated partial thromboplastin time (a PTT) in platelet poor plasma bycoagulation assay - 08/06/18 12:40 Activated partial thromboplastin time (a PTT) in platelet poor plasma bycoagulation assay 33 s 24-35 Comprehensive metabolic panel - 08/06/18 12:40 Serum or plasma sodium measurement (moles/volume) 140 mmol/L 135-145 Serum or plasma potassium measurement (moles/volume) 3.8 mmol/L 3.6-5.0 Serum or plasma chloride measurement (moles/volume) 101 mmol/L 98-107 Carbon dioxide 26 mmol/L 21-32 Serum or plasma anion gap determination (moles/volume) 13 mmol/L 5-14 Serum or plasma urea nitrogen measurement (mass/volume ) 12 mg/dL 7-18 Serum or plasma creatinine measurement (mass/volume) 0.88 mg/dL 0.60-1.30 Serum or plasma urea nitrogen/creatinine mass ratio 14 NRG Serum or plasma creatinine measurement w ith calculation of estimated glomerular filtration rate > NRG Serum or plasma glucose measurement (mass/volume) 107 mg/dL 70-105 Serum or plasma calcium measurement (mass/volume) 9.9 mg/dL 8.5-10.1 Serum or plasma total bilirubin measurement (mass/volu me) 0.8 mg/dL 0.1-1.0 Serum or plasma alkaline phosphatase jackie surement (enzymatic activity/volume) 87 U/L 40-136 Serum or plasma aspartate aminotransfera se measurement (enzymatic activity/volume) 28 U/L 5-34 Serum or plasma alanine aminotransferase measurement (enzymatic activity/volume) 52 U/L 0-55 Serum or plasma protein measurement (mass/volume) 7.9 g/dL 6.4-8.2 Serum or plasma albumin measurement (mass/volume) 4.8 g/dL 3.2-4.5 Magnesium - 08/06/18 12:40 Magnesium 2.3 mg/dL 1.8-2.4 Serum or plasma troponin i.cardiac measu rement (mass/volume) - 08/06/18 12:40 Serum or plasma troponin i.cardiac measurement (mass/v olume) < ng/mL <0.028 Myoglobin, serum - 08/06/18 12:40 Myoglobin, serum 31.7 ng/mL 10.0-92.0 Serum or plasma lithium measurement (mol es/volume) - 08/06/18 12:40 BNP level < pg/mL <100.0 Fibrin D-dimer FEU measurement in platel et poor plasma (mass/volume) - 08/06/18 12:40 Fibrin D-dimer FEU measurement in platelet poor plasma (mass/volume) 0.39 ug/mL 0.00-0.49 Complete blood count (CBC) with automate d white blood cell (WBC) differential - 09/06/18 07:30 Blood leukocytes automated count (number/volume) 4.9 10*3/uL 4.3-11.0 Blood erythrocytes automated count (number/volume) 4.30 10*6/uL 4.35-5.85 Venous blood hemoglobin measurement (mass/volume) 14.9 g/dL 13.3-17.7 Blood hematocrit (volume fraction) 40 % 40-54 Automated erythrocyte mean corpuscular volume 93 [ foz_us] 80-99 Automated erythrocyte mean corpuscular h emoglobin (mass per erythrocyte) 35 pg 25-34 Automated erythrocyte mean corpuscular h emoglobin concentration measurement (mass/volume) 37 g/dL 32-36 Automated erythrocyte distribution width ratio 12. 8 % 10.0- 14.5 Automated blood platelet count [...] 10*3 1.0-4.0 Blood monocytes automated count (number/volume) 0. 4 10*3 0.0-1.0 Automated eosinophil count 0.1 10*3/uL 0 .0-0.3 Automated blood basophil count (count/volume) 0.0 10*3/uL 0.0-0.1 Comprehensive metabolic panel - 09/06/18 07:30 Serum or plasma sodium measurement (moles/volume) 138 mmol/L 135-145 Serum or plasma potassium measurement (moles/volume) 4.2 mmol/L 3.6-5.0 Serum or plasma chloride measurement (moles/volume) 104 mmol/L 98-107 Carbon dioxide 24 mmol/L 21-32 Serum or plasma anion gap determination (moles/volume) 10 mmol/L 5-14 Serum or plasma urea nitrogen measurement (mass/volume ) 11 mg/dL 7-18 Serum or plasma creatinine measurement (mass/volume) 0.92 mg/dL 0.60-1.30 Serum or plasma urea nitrogen/creatinine mass ratio 12 NRG Serum or plasma creatinine measurement w ith calculation of estimated glomerular filtration rate > NRG Serum or plasma glucose measurement (mass/volume) 178 mg/dL 70-105 Serum or plasma calcium measurement (mass/volume) 9.4 mg/dL 8.5-10.1 Serum or plasma total bilirubin measurement (mass/volu me) 0.6 mg/dL 0.1-1.0 Serum or plasma alkaline phosphatase jackie surement (enzymatic activity/volume) 49 U/L 40-136 Serum or plasma aspartate aminotransfera se measurement (enzymatic activity/volume) 23 U/L 5-34 Serum or plasma alanine aminotransferase measurement (enzymatic activity/volume) 29 U/L 0-55 Serum or plasma protein measurement (mass/volume) 6.8 g/dL 6.4-8.2 Serum or plasma albumin measurement (mass/volume) 4.4 g/dL 3.2-4.5 CALCIUM CORRECTED 9.1 mg/dL 8.5-10.1 Serum or plasma troponin i.cardiac measu rement (mass/volume) - 09/06/18 07:30 Serum or plasma troponin i.cardiac measurement (mass/v olume) < ng/mL <0.028 Fibrin D-dimer FEU measurement in platel et poor plasma (mass/volume) - 12/10/18 06:53 Fibrin D-dimer FEU measurement in platelet poor plasma (mass/volume) <= ug/mL 0.00-0.49 Serum or plasma troponin i.cardiac measu rement (mass/volume) - 12/10/18 06:53 Serum or plasma troponin i.cardiac measurement (mass/v olume) < ng/mL <0.028 Complete blood count (CBC) with automate d white blood cell (WBC) differential - 01/11/19 14:55 Blood leukocytes automated count (number/volume) 7.3 10*3/uL 4.3-11.0 Blood erythrocytes automated count (number/volume) 4.32 10*6/uL 4.35-5.85 Venous blood hemoglobin measurement (mass/volume) 14.8 g/dL 13.3-17.7 Blood hematocrit (volume fraction) 40 % 40-54 Automated erythrocyte mean corpuscular volume 92 [ foz_us] 80-99 Automated erythrocyte mean corpuscular h emoglobin (mass per erythrocyte) 34 pg 25-34 Automated erythrocyte mean corpuscular h emoglobin concentration measurement (mass/volume) 37 g/dL 32-36 Automated erythrocyte distribution width ratio 12. 6 % 10.0- 14.5 Automated blood platelet count (count/volume) 235 10*3/uL 130-400 Automated blood platelet mean volume measurement 9.5 [foz_us] 7.4-10.4 Automated blood neutrophils/100 leukocytes 70 % 42-75 Automated blood lymphocytes/100 leukocytes 18 % 12-44 Blood monocytes/100 leukocytes 11 % 0-12 Automated blood eosinophils/100 leukocytes 1 % 0-10 Automated blood basophils/100 leukocytes 0 % 0-10 Blood neutrophils automated count (number/volume) 5.1 10*3 1.8-7.8 Blood lymphocytes automated count (number/volume) 1.3 10*3 1.0-4.0 Blood monocytes automated count (number/volume) 0. 8 10*3 0.0-1.0 Automated eosinophil count 0.1 10*3/uL 0 .0-0.3 Automated blood basophil count (count/volume) 0.0 10*3/uL 0.0-0.1 Comprehensive metabolic panel - 01/11/19 14:55 Serum or plasma sodium measurement (moles/volume) 140 mmol/L 135-145 Serum or plasma potassium measurement (moles/volume) 3.8 mmol/L 3.6-5.0 Serum or plasma chloride measurement (moles/volume) 104 mmol/L 98-107 Carbon dioxide 26 mmol/L 21-32 Serum or plasma anion gap determination (moles/volume) 10 mmol/L 5-14 Serum or plasma urea nitrogen measurement (mass/volume ) 11 mg/dL 7-18 Serum or plasma creatinine measurement (mass/volume) 1.19 mg/dL 0.60-1.30 Serum or plasma urea nitrogen/creatinine mass ratio 9 NRG Serum or plasma creatinine measurement w ith calculation of estimated glomerular filtration rate > NRG Serum or plasma glucose measurement (mass/volume) 129 mg/dL 70-105 Serum or plasma calcium measurement (mass/volume) 9.7 mg/dL 8.5-10.1 Serum or plasma total bilirubin measurement (mass/volu me) 1.2 mg/dL 0.1-1.0 Serum or plasma alkaline phosphatase jackie surement (enzymatic activity/volume) 49 U/L 40-136 Serum or plasma aspartate aminotransfera se measurement (enzymatic activity/volume) 34 U/L 5-34 Serum or plasma alanine aminotransferase measurement (enzymatic activity/volume) 33 U/L 0-55 Serum or plasma protein measurement (mass/volume) 7.0 g/dL 6.4-8.2 Serum or plasma albumin measurement (mass/volume) 4.7 g/dL 3.2-4.5 Serum or plasma troponin i.cardiac measu rement (mass/volume) - 01/11/19 14:55 Serum or plasma troponin i.cardiac measurement (mass/v olume) < ng/mL <0.028 Erythrocyte sedimentation rate by viola gren method - 01/11/19 14:55 Erythrocyte sedimentation rate by westergren method 4 mm 0- 15 Fibrin D-dimer FEU measurement in platel et poor plasma (mass/volume) - 01/11/19 14:55 Fibrin D-dimer FEU measurement in platelet poor plasma (mass/volume) 0.26 ug/mL 0.00-0.49 Urine drug screening test - 08/02/19 06: 05 Urine phencyclidine detection by screening method NEGATIVE NEGATIVE Urine benzodiazepines detection by screening method NEGATIVE NEGATIVE Urine cocaine detection NEGATIVE NEGATI VE Urine amphetamines detection by screening method N EGATIVE NEGATIVE Urine methamphetamine detection by screening method NEGATIVE NEGATIVE Urine cannabinoids detection by screening method N EGATIVE NEGATIVE Urine opiates detection by screening method NEGATI VE NEGATIVE Urine barbiturates detection NEGATIVE N EGATIVE Screening urine tricyclic antidepressants detection NEGATIVE NEGATIVE Urine methadone detection by screening method NEGA TIVE NEGATIVE Urine oxycodone detection NEGATIVE NEGA TIVE Urine propoxyphene detection NEGATIVE N EGATIVE Complete urinalysis with reflex to cultu re - 08/02/19 06:05 Urine color determination YELLOW NRG Urine clarity determination CLEAR NR G Urine pH measurement by test strip 6.0 5-9 Specific gravity of urine by test strip 1.025 1.016-1.022 Urine protein assay by test strip, semi-quantitative NEGATIVE NEGATIVE Urine glucose detection by automated test strip NE GATIVE NEGATIVE Erythrocytes detection in urine sediment by light micr oscopy NEGATIVE NEGATIVE Urine ketones detection by automated test strip NE GATIVE NEGATIVE Urine nitrite detection by test strip NEGATIVE NEGATIVE Urine total bilirubin detection by test strip NEGA TIVE NEGATIVE Urine urobilinogen measurement by automated test strip (mass/volume) 0.2 mg/dL < = 1.0 Urine leukocyte esterase detection by dipstick NEG ATIVE NEGATIVE Automated urine sediment erythrocyte cou nt by microscopy (number/high power field) NONE NRG Automated urine sediment leukocyte count by microscopy (number/high power field) NONE NRG Bacteria detection in urine sediment by light microsco py NEGATIVE NRG Squamous epithelial cells detection in u rine sediment by light microscopy RARE NRG Crystals detection in urine sediment by light microsco py NONE NRG Casts detection in urine sediment by light microscopy NONE NRG Mucus detection in urine sediment by light microscopy NEGATIVE NRG Complete urinalysis with reflex to culture NO NRG Complete blood count (CBC) with automate d white blood cell (WBC) differential - 08/02/19 06:10 Blood leukocytes automated count (number/volume) 6.1 10*3/uL 4.3-11.0 Blood erythrocytes automated count (number/volume) 4.52 10*6/uL 4.35-5.85 Venous blood hemoglobin measurement (mass/volume) 15.2 g/dL 13.3-17.7 Blood hematocrit (volume fraction) 42 % 40-54 Automated erythrocyte mean corpuscular volume 93 [ foz_us] 80-99 Automated erythrocyte mean corpuscular h emoglobin (mass per erythrocyte) 34 pg 25-34 Automated erythrocyte mean corpuscular h emoglobin concentration measurement (mass/volume) 36 g/dL 32-36 Automated erythrocyte distribution width ratio 12. 7 % 10.0- 14.5 Automated blood platelet count (count/volume) 205 10*3/uL 130-400 Automated blood platelet mean volume measurement 9.6 [foz_us] 7.4-10.4 Automated blood neutrophils/100 leukocytes 56 % 42-75 Automated blood lymphocytes/100 leukocytes 29 % 12-44 Blood monocytes/100 leukocytes 13 % 0-12 Automated blood eosinophils/100 leukocytes 2 % 0-10 Automated blood basophils/100 leukocytes 0 % 0-10 Blood neutrophils automated count (number/volume) 3.4 10*3 1.8-7.8 Blood lymphocytes automated count (number/volume) 1.8 10*3 1.0-4.0 Blood monocytes automated count (number/volume) 0. 8 10*3 0.0-1.0 Automated eosinophil count 0.1 10*3/uL 0 .0-0.3 Automated blood basophil count (count/volume) 0.0 10*3/uL 0.0-0.1 Comprehensive metabolic panel - 08/02/19 06:10 Serum or plasma sodium measurement (moles/volume) 144 mmol/L 135-145 Serum or plasma potassium measurement (moles/volume) 4.8 mmol/L 3.6-5.0 Serum or plasma chloride measurement (moles/volume) 110 mmol/L 98-107 Carbon dioxide 24 mmol/L 21-32 Serum or plasma anion gap determination (moles/volume) 10 mmol/L 5-14 Serum or plasma urea nitrogen measurement (mass/volume ) 15 mg/dL 7-18 Serum or plasma creatinine measurement (mass/volume) 1.01 mg/dL 0.60-1.30 Serum or plasma urea nitrogen/creatinine mass ratio 15 NRG Serum or plasma creatinine measurement w ith calculation of estimated glomerular filtration rate > NRG Serum or plasma glucose measurement (mass/volume) 83 mg/dL 70-105 Serum or plasma calcium measurement (mass/volume) 9.6 mg/dL 8.5-10.1 Serum or plasma total bilirubin measurement (mass/volu me) 0.5 mg/dL 0.1-1.0 Serum or plasma alkaline phosphatase jackie surement (enzymatic activity/volume) 61 U/L 40-136 Serum or plasma aspartate aminotransfera se measurement (enzymatic activity/volume) 56 U/L 5-34 Serum or plasma alanine aminotransferase measurement (enzymatic activity/volume) 52 U/L 0-55 Serum or plasma protein measurement (mass/volume) 7.0 g/dL 6.4-8.2 Serum or plasma albumin measurement (mass/volume) 4.4 g/dL 3.2-4.5 CALCIUM CORRECTED 9.3 mg/dL 8.5-10.1 Fibrin D-dimer FEU measurement in platel et poor plasma (mass/volume) - 08/02/19 06:10 Fibrin D-dimer FEU measurement in platelet poor plasma (mass/volume) 0.27 ug/mL 0.00-0.49 Serum or plasma troponin i.cardiac measu rement (mass/volume) - 08/02/19 06:10 Serum or plasma troponin i.cardiac measurement (mass/v olume) < ng/mL <0.028 Serum or plasma salicylates measurement (mass/volume) - 08/02/19 06:10 Serum or plasma salicylates measurement (mass/volume) < mg/dL 5.0-20.0 Serum or plasma acetaminophen measuremen t (mass/volume) - 08/02/19 06:10 Serum or plasma acetaminophen measurement (mass/volume ) < ug/mL 10-30 Serum or plasma ethanol measurement (mas s/volume) - 08/02/19 06:10 Serum or plasma ethanol measurement (mass/volume) < mg/dL <10 Serum or plasma thyrotropin measurement by detection limit <=0.05 miu/l (units/volume) - 08/02/19 06:10 Serum or plasma thyrotropin measurement by detection limit <=0.05 miu/l (units/volume) 3.02 u[iU]/mL 0.35-4.94 Encounters ACCT No. Visit Date/Time Discharge Status Pt. Type Provider Facility Loc./Unit Complaint [id number] 08/02/2019 05:04:00 020 08:03:00 DIS Emergency DEB LANGE, ELLIS Correa [facility] ER ANXIOUS, PANICI NG, CHEST PAIN [id number] 07/31/2019 06:54:00 020 08:51:00 DIS Outpatient JAN LANGE, VIGNESH Garner [facility] ER CP [id number] 02/16/2019 10:56:00 019 13:35:00 DIS Outpatient RONNI ESPINO DO [facility] ENDO GERD/PAIN [id number] 02/13/2019 10:25:00 019 10:36:00 DIS Outpatient RONNI ESPINO DO [facility] PREOP EGD [id number] 01/23/2019 11:17:00 23:59:59 CLS Outpatient DI BECKFORD MD [facility] RAD STERNAL PAIN ON-GOING [id number] 01/20/2019 09:13:00 23:59:59 CLS Outpatient JENNIFER NARAYAN MASTICATOR [facility] RAD PARATHESIA LEFT SIDE CH EST AND ARM [id number] 01/11/2019 14:53:00 23:59:59 CLS Outpatient SHON GUZMAN MASTICATOR [facility] LABNPT [id number] 12/10/2018 06:42:00 06/19/2 019 07:45:00 DIS Emergency DEB LANGE, ELLIS Correa [facility] ER SHARP CP [id number] 11/18/2018 05:13:00 06:48:00 DIS Emergency JAN LANGE, VIGNESH Garner [facility] ER CP, BACK SHOU LDER PAIN,ANXIETY [id number] 10/03/2018 00:14:00 23:59:59 CLS Preadmit NOEMY MURDOCK MD [facility] ONC [id number] 07/04/2018 08:24:00 00:01:00 DIS Outpatient NOEMY MURDOCK MD, V [facility] ONC [id number] 09/06/2018 06:58:00 09:00:00 DIS Emergency GLEN KENNY MD [facility] ER CHEST DISCOMFORT [id number] 09/02/2018 08:49:00 23:59:59 CLS Outpatient DI BECKFORD MD [facility] [facility] CARD CHEST PAIN [id number] 08/06/2018 12:36:00 14:20:00 DIS Emergency MARY SNYDER APRN [facility] ER CHEST PAIN [id number] 04/02/2018 10:20:00 00:01:00 DIS Outpatient NOEMY MUDROCK MD, V [facility] ONC [id number] 06/04/2018 10:43:00 23:59:59 CLS Outpatient DI BECKFORD MD [facility] RAD ACUTE LYMPHADENITIS OF FACE,HEAD AND NECK [id number] 05/05/2018 07:16:00 23:59:59 CLS Outpatient ONEIDA AQUINO MD [facility] CARD ANTERIOR CHEST WALL MONTSERRAT N,DVT,PE [id number] 04/02/2018 11:51:00 23:59:59 CLS Outpatient DI BECKFORD MD [facility] RAD DVT [id number] 03/24/2018 06:58:00 018 08:00:00 DIS Emergency EDER LAGNE, DUNG Christianson [facility] ER ANXIETY [id number] 03/20/2018 10:31:00 018 23:59:59 CLS Outpatient SHAKEEL LANGE, DI Christianson [facility] RAD THROACIC BACK PAIN [id number] 03/13/2018 11:13:00 018 13:22:00 DIS Emergency MARY SNYDER MASTICATOR [facility] ER CHEST PAIN [id number] 02/25/2018 12:07:00 018 23:59:59 CLS Preadmit KENIA LANGE, ONEIDA Christianson [facility] CARD R07.89 ANTERIOR CHEST W ALL PAIN [id number] 01/29/2018 14:59:00 018 00:01:00 DIS Outpatient MATHIEU ALNGE, NOEMY Pisano [facility] ONC [id number] 01/20/2018 20:12:00 018 22:11:00 DIS Emergency MARY SNYDER MASTICATOR [facility] ER BLOOD CLOT [id number] 01/16/2018 06:17:00 018 07:00:00 DIS Emergency DEB LANGE, ELLIS Correa [facility] ER PAIN BEHIND KNE E, LEFT LEG [id number] 11/12/2016 12:21:00 017 23:59:59 CLS Outpatient MOOK MILLER MD [facility] RAD GROSS HEMATURIA [id number] 02/03/2018 15:49:00 Document Registration
== END 2019-08-02 08:03 | disposition home or self-care (01) ==
LOC: EDUNIT# 05:02 → ER 05:04
DX: F41.9 Anxiety disorder, unspecified (principal); R07.89 Other chest pain; E78.00 Pure hypercholesterolemia, unspecified; Z82.49 Family history of ischemic heart disease and other diseases of the circulatory system
CPT/HCPCS: 36415; 71045; 80053; 80306; 80320; 80329; 81000; 84443; 84484; 85025; 85379; 93005; 93041

== ENCOUNTER 2019-08-18 07:48 | Outpatient (RCR) | payer BC ==
[~2019-08-18 07:48] MED LIST changes: +CITA20TA12 PO
== END 2019-11-16 | disposition home or self-care (01) ==
LOC: CARD 07:48
PROVIDERS: ATTEND Internal Medicine Cardiovascular Disease
DX: I26.99 Other pulmonary embolism without acute cor pulmonale (principal); E78.2 Mixed hyperlipidemia; I82.492 Acute embolism and thrombosis of other specified deep vein of left lower extremity; R07.9 Chest pain, unspecified
CPT/HCPCS: 93270

== ENCOUNTER 2019-11-24 14:03 | Outpatient (RCR) | payer BC ==
[2019-11-27] MEDS ORDERED: DULO30CA3 PO (09:56)
[2019-11-27] MEDS ORDERED: MTP25TSR PO (09:56)
== END 2020-01-07 | disposition home or self-care (01) ==
PROVIDERS: ATTEND Physical Therapist
DX: R07.81 Pleurodynia (principal); R07.89 Other chest pain; M54.6 Pain in thoracic spine

== ENCOUNTER 2019-11-27 08:12 | Day surgery (SDC) | payer BC ==
[~2019-11-27] VITALS: Ht 178 cm; Wt 89.0 kg
[2019-11-27] VITALS (9 sets, daily range): BP systolic 131–148; BP diastolic 78–92
[2019-11-27] MEDS ORDERED: NS IV 1000 ML 1,000 ML IV SCH ×2 (08:14→11:16)
[2019-11-27] MEDS ORDERED: LIDOCAINE 1% INJ 20 ML 20 ML VIAL ONE (08:15)
[2019-11-27] MEDS ORDERED: HEParin (CATH LAB) 2,000 ML IV ONE (08:15)
[2019-11-27] MEDS ORDERED: NS IV 1000 ML 1,000 ML ONE (08:15)
--- OUTSIDE RECORDS SUMMARY | 2019-11-27 08:33 | XMS REPORT | Continuity of Care Document ---
Author Organization Unknown Address Unknown Phone Unavailable Allergies Active Description Code Type Severity Reaction Onset Reported/Identified Relationship to Patient Clinical Status Yes No Known Drug Allergies [id number] Drug Allergy Unknown N/A 01/16/2018 Medications There [...] LEG 01/16/2018 ELLIS BOYD MD Ot Z79.01 PENITENTIARY (CURRENT) USE OF ANTICOAGULANT 01/20/2018 ELLIS BOYD MD Ot E78.00 PURE HYPERCHOLESTEROLEMIA, UNSPECIFIED 01/20/2018 ELLIS BOYD MD, Ot F41.9 ANXIETY DISORDER, UNSPECIFIED 01/20/2018 ELLIS BOYD MD Ot I82.402 ACUTE EMBOLISM AND THOMBOS UNSP DEEP VEI 01/20/2018 ELLIS BOYD MD Ot M79.662 PAIN IN LEFT LOWER LEG 01/20/2018 ELLIS BOYD MD Ot Z79.01 PENITENTIARY (CURRENT) USE OF ANTICOAGULANT 01/20/2018 MARY SNYDER APRN Ot E78.00 PURE HYPERCHOLESTEROLEMIA, UNSPECIFIED 01/20/2018 MARY SNYDER APRN Ot F41 .9 ANXIETY DISORDER, UNSPECIFIED 01/20/2018 MARY SNYDER APRN Ot I26.99 OTHER PULMONARY EMBOLISM WITHOUT ACUTE C 01/20/2018 MARY SNYDER APRN Ot R07.89 OTHER CHEST PAIN 01/20/2018 MARY SNYDER APRN Ot Z79.01 VICE PRESIDENT CORPORATE COMMUNICATIONS (CURRENT) USE OF ANTICOAGULANT 01/20/2018 MARY SNYDER [...] VEI 02/21/2018 NOEMY MURDOCK MD Ot Z79.01 PENITENTIARY (CURRENT) USE OF ANTICOAGULANT 02/21/2018 NOEMY MURDOCK MD Ot Z79.899 OTHER VICE PRESIDENT CORPORATE COMMUNICATIONS (CURRENT) DRUG THERAPY 03/05/2018 NOEMY MURDOCK MD Ot E78.5 HYPERLIPIDEMIA, UNSPECIFIED 03/05/2018 NOEMY MURDOCK MD Ot I26.99 OTHER PULMONARY EMBOLISM WITHOUT ACUTE C 03/05/2018 NOEMY MURDOCK MD Ot I82.402 ACUTE EMBOLISM AND THOMBOS UNSP DEEP VEI 03/05/2018 NOEMY MURDOCK MD Ot Z79.01 VICE PRESIDENT CORPORATE COMMUNICATIONS (CURRENT) USE OF ANTICOAGULANT 03/05/2018 NOEMY MURDOCK MD Ot Z79.899 OTHER VICE PRESIDENT CORPORATE COMMUNICATIONS (CURRENT) DRUG THERAPY 03/13/2018 MARY SNYDER APRN Ot E78.00 PURE HYPERCHOLESTEROLEMIA, UNSPECIFIED 03/13/2018 MARY SNYDER APRN Ot F41 .9 ANXIETY DISORDER, UNSPECIFIED 03/13/2018 MARY SNYDER APRN Ot R07.89 OTHER CHEST PAIN 03/13/2018 MARY SNYDER APRN Ot Z79.01 PENITENTIARY (CURRENT) USE OF ANTICOAGULANT 03/13/2018 MARY SNYDER APRN Ot 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 03/17/2018 SNYDER, PETER J NAIL FEEDER Ot E78.00 PURE HYPERCHOLESTEROLEMIA, UNSPECIFIED 03/17/2018 MARY SNYDER NAIL FEEDER Ot F41 .9 ANXIETY DISORDER, UNSPECIFIED 03/17/2018 MARY SNYDER NAIL FEEDER Ot R07.89 OTHER CHEST PAIN 03/17/2018 AMRY SNYDER NAIL FEEDER Ot Z79.01 PENITENTIARY (CURRENT) USE OF ANTICOAGULANT 03/17/2018 MARY SNYDER NAIL FEEDER Ot 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 03/21/2018 DI BECKFORD MD Ot 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 00 PURE HYPERCHOLESTEROLEMIA, UNSPECIFIED 03/24/2018 DUNG GAINES MD Ot F41. 0 PANIC DISORDER [EPISODIC PAROXYSMAL ANXI 03/24/2018 DUNG GAINES MD Ot F41. 9 ANXIETY DISORDER, UNSPECIFIED 03/24/2018 DUNG GAINES MD Ot Z79. 01 VICE PRESIDENT CORPORATE COMMUNICATIONS (CURRENT) USE OF ANTICOAGULANT 03/24/2018 DUNG GAINES MD Ot 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 03/26/2018 DUNG GAINES MD Ot E78. 00 PURE HYPERCHOLESTEROLEMIA, UNSPECIFIED 03/26/2018 DUNG GAINES MD Ot F41. 0 PANIC DISORDER [EPISODIC PAROXYSMAL ANXI 03/26/2018 DUNG GAINES MD Ot F41. 9 ANXIETY DISORDER, UNSPECIFIED 03/26/2018 DUNG GAINES MD Ot Z79. 01 PENITENTIARY (CURRENT) USE OF ANTICOAGULANT 03/26/2018 DUNG GAINES MD Ot 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 03/30/2018 DUNG GAINES MD Ot E78. 00 PURE HYPERCHOLESTEROLEMIA, UNSPECIFIED 03/30/2018 DUNG GAINES MD Ot F41. 0 PANIC DISORDER [EPISODIC PAROXYSMAL ANXI 03/30/2018 DUNG GAINES MD Ot F41. 9 ANXIETY DISORDER, UNSPECIFIED 03/30/2018 DUNG GAINES MD Ot Z79. 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 01 VICE PRESIDENT CORPORATE COMMUNICATIONS (CURRENT) USE OF ANTICOAGULANT 04/08/2018 DI BECKFORD MD, Ot I82.409 ACUTE EMBOLISM AND THOMBOS UNSP DEEP VN 04/08/2018 DI BECKFORD MD, Ot Z79. 01 VICE PRESIDENT CORPORATE COMMUNICATIONS (CURRENT) USE OF ANTICOAGULANT 05/07/2018 ONEIDA AQUINO MD Ot I26. 99 OTHER PULMONARY EMBOLISM WITHOUT ACUTE C 05/07/2018 ONEIDA AQUINO MD Ot I82.409 ACUTE EMBOLISM AND THOMBOS UNSP DEEP VN 05/07/2018 ONEIDA AQUINO MD Ot R07. 89 OTHER CHEST PAIN 06/02/2018 DI BECKFORD MD, Ot I82.402 ACUTE EMBOLISM AND THOMBOS UNSP DEEP VEI 06/02/2018 DI BECKFORD MD, Ot Z79. 01 VICE PRESIDENT CORPORATE COMMUNICATIONS (CURRENT) USE OF ANTICOAGULANT 06/05/2018 DI BECKFORD MD Ot L04. 0 ACUTE LYMPHADENITIS OF FACE, HEAD AND NE 06/20/2018 ID BECKFORD MD Ot L04. 0 ACUTE LYMPHADENITIS OF FACE, HEAD AND NE 06/27/2018 DI BECKFORD MD, Ot I82.402 ACUTE EMBOLISM AND THOMBOS UNSP DEEP VEI 06/27/2018 DI BECKFORD MD, Ot Z79. 01 VICE PRESIDENT CORPORATE COMMUNICATIONS (CURRENT) USE OF ANTICOAGULANT 07/01/2018 NOEMY MURDOCK MD Ot E78.5 HYPERLIPIDEMIA, UNSPECIFIED 07/01/2018 NOEMY MURDOCK MD Ot I26.99 OTHER PULMONARY EMBOLISM WITHOUT ACUTE C 07/01/2018 NOEMY MURDOCK MD Ot I82.402 ACUTE EMBOLISM AND THOMBOS UNSP DEEP VEI 07/01/2018 NOEMY MURDOCK MD Ot Z79.01 VICE PRESIDENT CORPORATE COMMUNICATIONS (CURRENT) USE OF ANTICOAGULANT 07/01/2018 NOEMY MURDOCK MD, Ot Z79.899 OTHER PENITENTIARY (CURRENT) DRUG THERAPY 07/03/2018 NOEMY MURDOCK MD Ot E78.5 HYPERLIPIDEMIA, UNSPECIFIED 07/03/2018 NOEMY MURDOCK MD Ot I26.99 OTHER PULMONARY EMBOLISM WITHOUT ACUTE C 07/03/2018 NOEMY MURDOCK MD, Ot I82.402 ACUTE EMBOLISM AND THOMBOS UNSP DEEP VEI 07/03/2018 NOEMY MURDOCK MD Ot Z79.01 VICE PRESIDENT CORPORATE COMMUNICATIONS (CURRENT) USE OF ANTICOAGULANT 07/03/2018 NOEMY MURDOCK MD, Ot Z79.899 OTHER PENITENTIARY (CURRENT) DRUG THERAPY 07/04/2018 NOEMY MURDOCK MD Ot E78.5 HYPERLIPIDEMIA, UNSPECIFIED 07/04/2018 NOEMY MURDOCK MD Ot I26.99 OTHER PULMONARY EMBOLISM WITHOUT ACUTE C 07/04/2018 NOEMY MURDOCK MD Ot I82.402 ACUTE EMBOLISM AND THOMBOS UNSP DEEP VEI 07/04/2018 NOEMY MURDOCK MD Ot Z79.01 VICE PRESIDENT CORPORATE COMMUNICATIONS (CURRENT) USE OF ANTICOAGULANT 07/04/2018 NOEMY MURDOCK MD, Ot Z79.899 OTHER VICE PRESIDENT CORPORATE COMMUNICATIONS (CURRENT) DRUG THERAPY 07/07/2018 NOEMY MURDOCK MD, Ot E78.5 HYPERLIPIDEMIA, UNSPECIFIED 07/07/2018 NOEMY MURDOCK MD Ot I26.99 OTHER PULMONARY EMBOLISM WITHOUT ACUTE C 07/07/2018 NOEMY MURDOCK MD, Ot I82.402 ACUTE EMBOLISM AND THOMBOS UNSP DEEP VEI 07/07/2018 NOEMY MURDOCK MD, Ot Z79.01 VICE PRESIDENT CORPORATE COMMUNICATIONS (CURRENT) USE OF ANTICOAGULANT 07/07/2018 NOEMY MURDOCK MD, Ot Z79.899 OTHER PENITENTIARY (CURRENT) DRUG THERAPY 08/06/2018 MOOK MILLER MD [...] EMBOLISM AND THOMBOS UNSP DEEP VEI 08/06/2018 ID BECKFORD MD, Ot Z79. 01 PENITENTIARY (CURRENT) USE OF ANTICOAGULANT 08/06/2018 DI BECKFORD MD, Ot L04. 0 ACUTE LYMPHADENITIS OF FACE, HEAD AND NE 08/06/2018 NOEMY MURDOCK MD Ot E78.5 HYPERLIPIDEMIA, UNSPECIFIED 08/06/2018 NOEMY MURDOCK MD, Ot I26.99 OTHER PULMONARY EMBOLISM WITHOUT ACUTE C 08/06/2018 NOEMY MURDOCK MD Ot I82.402 ACUTE EMBOLISM AND THOMBOS UNSP DEEP VEI 08/06/2018 NOEMY MURDOCK MD, Ot Z79.01 PENITENTIARY (CURRENT) USE OF ANTICOAGULANT 08/06/2018 NOEMY MURDOCK MD, Ot Z79.899 OTHER PENITENTIARY (CURRENT) DRUG THERAPY 08/06/2018 MARY SNYDER APRN [...] 08/06/2018 DI BECKFORD MD, Ot Z79. 01 PENITENTIARY (CURRENT) USE OF ANTICOAGULANT 08/06/2018 SHAKEEL MD, DI J Ot L04. 0 ACUTE LYMPHADENITIS OF FACE, HEAD AND NE 08/06/2018 NOEMY MURDOCK MD Ot E78.5 HYPERLIPIDEMIA, UNSPECIFIED 08/06/2018 NOEMY MURDOCK MD Ot I26.99 OTHER PULMONARY EMBOLISM WITHOUT ACUTE C 08/06/2018 NOEMY MURDOCK MD Ot I82.402 ACUTE EMBOLISM AND THOMBOS UNSP DEEP VEI 08/06/2018 NOEMY MURDOCK MD Ot Z79.01 PENITENTIARY (CURRENT) USE OF ANTICOAGULANT 08/06/2018 NOEMY MURDOCK MD, Ot Z79.899 OTHER PENITENTIARY (CURRENT) DRUG THERAPY 08/11/2018 MARY SNYDER APRN Ot E78.00 PURE HYPERCHOLESTEROLEMIA, UNSPECIFIED 08/11/2018 MARY SNYDER NAIL FEEDER Ot F41 .9 ANXIETY DISORDER, UNSPECIFIED 08/11/2018 MARY SNYDER NAIL FEEDER Ot R07.89 OTHER CHEST PAIN 08/11/2018 MARY SNYDER NAIL FEEDER Ot Z86.711 PERSONAL HISTORY OF PULMONARY EMBOLISM 08/11/2018 MARY SNYDER NAIL FEEDER Ot 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 08/11/2018 MARY SNYDER NAIL FEEDER Ot E78.00 PURE HYPERCHOLESTEROLEMIA, UNSPECIFIED 08/11/2018 MARY SNYDER NAIL FEEDER Ot F41 .9 ANXIETY DISORDER, UNSPECIFIED 08/11/2018 MARY SNYDER NAIL FEEDER Ot R07.89 OTHER CHEST PAIN 08/11/2018 MARY SNYDER APRN Ot Z86.711 PERSONAL HISTORY OF PULMONARY EMBOLISM 08/11/2018 MARY SNYDER NAIL FEEDER Ot 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 08/15/2018 NOEMY MURDOCK MD, Ot E78.5 HYPERLIPIDEMIA, UNSPECIFIED 08/15/2018 NOEMY MURDOCK MD Ot I26.99 OTHER PULMONARY EMBOLISM WITHOUT ACUTE C 08/15/2018 NOEMY MURDOCK MD Ot I82.402 ACUTE EMBOLISM AND THOMBOS UNSP DEEP VEI 08/15/2018 NOEMY MURDOCK MD Ot Z79.01 PENITENTIARY (CURRENT) USE OF ANTICOAGULANT 08/15/2018 NOEMY MURDOCK MD Ot Z79.899 OTHER VICE PRESIDENT CORPORATE COMMUNICATIONS (CURRENT) DRUG THERAPY 09/02/2018 MOOK MILLER MD [...] 09/02/2018 DI BECKFORD MD, Ot Z79. 01 PENITENTIARY (CURRENT) USE OF ANTICOAGULANT 09/02/2018 DI BECKFORD MD Ot L04. 0 ACUTE LYMPHADENITIS OF FACE, HEAD AND NE 09/02/2018 NOEMY MURDOCK MD Ot E78.5 HYPERLIPIDEMIA, UNSPECIFIED 09/02/2018 NOEMY MURDOCK MD Ot I26.99 OTHER PULMONARY EMBOLISM WITHOUT ACUTE C 09/02/2018 NOEMY MURDOCK MD Ot I82.402 ACUTE EMBOLISM AND THOMBOS UNSP DEEP VEI 09/02/2018 NOEMY MURDOCK MD Ot Z79.01 VICE PRESIDENT CORPORATE COMMUNICATIONS (CURRENT) USE OF ANTICOAGULANT 09/02/2018 NOEMY MURDOCK MD Ot Z79.899 OTHER VICE PRESIDENT CORPORATE COMMUNICATIONS (CURRENT) DRUG THERAPY 09/04/2018 DI BECKFORD MD [...] 09/06/2018 DI BECKFORD MD Ot Z79. 01 PENITENTIARY (CURRENT) USE OF ANTICOAGULANT 09/06/2018 DI BECKFORD MD Ot L04. 0 ACUTE LYMPHADENITIS OF FACE, HEAD AND NE 09/06/2018 NOEMY MURDOCK MD Ot E78.5 HYPERLIPIDEMIA, UNSPECIFIED 09/06/2018 NOEMY MURDOCK MD Ot I26.99 OTHER PULMONARY EMBOLISM WITHOUT ACUTE C 09/06/2018 NOEMY MURDOCK MD Ot I82.402 ACUTE EMBOLISM AND THOMBOS UNSP DEEP VEI 09/06/2018 NOEMY MURDOCK MD Ot Z79.01 PENITENTIARY (CURRENT) USE OF ANTICOAGULANT 09/06/2018 NOEMY MURDOCK MD Ot Z79.899 OTHER VICE PRESIDENT CORPORATE COMMUNICATIONS (CURRENT) DRUG THERAPY 09/06/2018 DI BECKFORD MD Ot R07. 9 CHEST PAIN, UNSPECIFIED 09/06/2018 GLEN KENNY MD Ot E78.00 PURE HYPERCHOLESTEROLEMIA, UNSPECIFIED 09/06/2018 GLEN KENNY MD Ot F41 .9 ANXIETY DISORDER, UNSPECIFIED 09/06/2018 GELN KENNY MD Ot R07.81 PLEURODYNIA 09/06/2018 GLEN [...] VEI 10/02/2018 NOEMY MURDOCK MD Ot Z79.01 VICE PRESIDENT CORPORATE COMMUNICATIONS (CURRENT) USE OF ANTICOAGULANT 10/02/2018 NOEMY MURDOCK MD Ot Z79.899 OTHER VICE PRESIDENT CORPORATE COMMUNICATIONS (CURRENT) DRUG THERAPY 10/03/2018 NOEMY MURDOCK MD Ot E78.5 HYPERLIPIDEMIA, UNSPECIFIED 10/03/2018 NOEMY MURDOCK MD Ot I26.99 OTHER PULMONARY EMBOLISM WITHOUT ACUTE C 10/03/2018 NOEMY MURDOCK MD Ot I82.402 ACUTE EMBOLISM AND THOMBOS UNSP DEEP VEI 10/03/2018 NOEMY MURDOCK MD Ot Z79.01 PENITENTIARY (CURRENT) USE OF ANTICOAGULANT 10/03/2018 NOEMY MURDOCK MD Ot Z79.899 OTHER PENITENTIARY (CURRENT) DRUG THERAPY 10/03/2018 NOEMY MURDOCK MD Ot E78.5 HYPERLIPIDEMIA, UNSPECIFIED 10/03/2018 NOEMY MURDOCK MD Ot I26.99 OTHER PULMONARY EMBOLISM WITHOUT ACUTE C 10/03/2018 NOEMY MURDOCK MD Ot I82.402 ACUTE EMBOLISM AND THOMBOS UNSP DEEP VEI 10/03/2018 NOEMY MURDOCK MD Ot Z79.01 PENITENTIARY (CURRENT) USE OF ANTICOAGULANT 10/03/2018 NOEMY MURDOCK MD Ot Z79.899 OTHER VICE PRESIDENT CORPORATE COMMUNICATIONS (CURRENT) DRUG THERAPY 10/14/2018 ONEIDA AQUINO MD [...] R07.9 CHEST PAIN, UNSPECIFIED 01/22/2019 JENNIFER NARAYAN NAIL FEEDER Ot E78.49 OTHER HYPERLIPIDEMIA 01/22/2019 JENNIFER NARAYAN NAIL FEEDER Ot F32 .9 MAJOR DEPRESSIVE DISORDER, SINGLE EPISOD 01/22/2019 JENNIFER NARAYAN NAIL FEEDER Ot F41 .9 ANXIETY DISORDER, UNSPECIFIED 01/22/2019 JENNIFER NARAYAN NAIL FEEDER Ot J30.89 OTHER ALLERGIC RHINITIS 01/22/2019 JENNIFER NARAYAN NAIL FEEDER Ot M54.14 RADICULOPATHY, THORACIC REGION 01/22/2019 JENNIFER NARAYAN NAIL FEEDER Ot R03 .0 ELEVATED BLOOD-PRESSURE READING, W/O ARSEN 01/22/2019 JENNIFER NARAYAN L NAIL FEEDER Ot R07.89 OTHER CHEST PAIN 01/22/2019 JENNIFER NARAYAN NAIL FEEDER Ot R20 .2 PARESTHESIA OF SKIN 01/22/2019 JENNIFER NARAYAN NAIL FEEDER Ot S46.812A [facility] 01/22/2019 JENNIFER NARAYAN L NAIL FEEDER Ot T14.8XXA OTHER INJURY OF UNSPECIFIED BODY REGION, 01/22/2019 JENNIFER NARAYAN L NAIL FEEDER Ot 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 01/22/2019 JENNIFER NARAYAN L NAIL FEEDER Ot E78.49 OTHER HYPERLIPIDEMIA 01/22/2019 JENNIFER NARAYAN L NAIL FEEDER Ot F32 .9 MAJOR DEPRESSIVE DISORDER, SINGLE EPISOD 01/22/2019 JENNIFER NARAYAN L NAIL FEEDER Ot F41 .9 ANXIETY DISORDER, UNSPECIFIED 01/22/2019 JENNIFER NARAYAN L NAIL FEEDER Ot J30.89 OTHER ALLERGIC RHINITIS 01/22/2019 JENNIFER NARAYAN L NAIL FEEDER Ot M54.14 RADICULOPATHY, THORACIC REGION 01/22/2019 JENNIFER NARAYAN L NAIL FEEDER Ot R03 .0 ELEVATED BLOOD-PRESSURE READING, W/O ARSEN 01/22/2019 JENNIFER NARAYAN L NAIL FEEDER Ot R07.89 OTHER CHEST PAIN 01/22/2019 JENNIFER NARAYAN L NAIL FEEDER Ot R20 .2 PARESTHESIA OF SKIN 01/22/2019 JENNIFER NARAYAN L NAIL FEEDER Ot S46.812A STRAIN OF MUSC/FASC/TEND AT [facility]/ ARM 01/22/2019 JENNIFER NARAYAN L NAIL FEEDER Ot T14.8XXA OTHER INJURY OF UNSPECIFIED BODY REGION, 01/22/2019 NARAYANJENNIFER L NAIL FEEDER Ot 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 01/23/2019 NWAGWUSHON O NAIL FEEDER Ot Z01.89 ENCOUNTER FOR OTHER SPECIFIED SPECIAL [...] 01/23/2019 DI BECKFORD MD, Ot Z79. 01 VICE PRESIDENT CORPORATE COMMUNICATIONS (CURRENT) USE OF ANTICOAGULANT 01/23/2019 DI BECKFORD [...] VEI 01/23/2019 NOEMY MURDOCK MD Ot Z79.01 VICE PRESIDENT CORPORATE COMMUNICATIONS (CURRENT) USE OF ANTICOAGULANT 01/23/2019 NOEMY MURDOCK MD Ot Z79.899 OTHER VICE PRESIDENT CORPORATE COMMUNICATIONS (CURRENT) DRUG THERAPY 01/23/2019 JENNIFER NARAYAN NAIL FEEDER Ot E78.49 OTHER HYPERLIPIDEMIA 01/23/2019 JENNIFER NARAYAN NAIL FEEDER Ot F32 .9 MAJOR DEPRESSIVE DISORDER, SINGLE EPISOD 01/23/2019 JENNIFER NARAYAN NAIL FEEDER Ot F41 .9 ANXIETY DISORDER, UNSPECIFIED 01/23/2019 JENNIFER NARAYAN NAIL FEEDER Ot J30.89 OTHER ALLERGIC RHINITIS 01/23/2019 JENNIFER NARAYAN NAIL FEEDER Ot M54.14 RADICULOPATHY, THORACIC REGION 01/23/2019 JENNIFER NARAYAN NAIL FEEDER Ot R03 .0 ELEVATED BLOOD-PRESSURE READING, W/O ARSEN 01/23/2019 JENNIFER NARAYAN NAIL FEEDER Ot R07.89 OTHER CHEST PAIN 01/23/2019 JENNIFER NARAYAN NAIL FEEDER Ot R20 .2 PARESTHESIA OF SKIN 01/23/2019 NARAYANJENNIFER WATERS L NAIL FEEDER Ot S46.812A STRAIN OF [facility]/FASC/TEND AT [facility] ARM 01/23/2019 BARBIE NARAYANI L NAIL FEEDER Ot T14.8XXA OTHER INJURY OF UNSPECIFIED BODY REGION, 01/23/2019 BARBIE NARAYANI L NAIL FEEDER Ot 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 01/26/2019 NARAYANBARBIE WATERSI L NAIL FEEDER Ot E78.49 OTHER HYPERLIPIDEMIA 01/26/2019 NARAYANBARBIEI L NAIL FEEDER Ot F32 .9 MAJOR DEPRESSIVE DISORDER, SINGLE EPISOD 01/26/2019 NARAYANBARBIE WATERSI L NAIL FEEDER Ot F41 .9 ANXIETY DISORDER, UNSPECIFIED 01/26/2019 HELENE JENNIFER L NAIL FEEDER Ot J30.89 OTHER ALLERGIC RHINITIS 01/26/2019 HELENE JENNIFER L NAIL FEEDER Ot M54.14 RADICULOPATHY, THORACIC REGION 01/26/2019 HELENE JENNIFER L NAIL FEEDER Ot R03 .0 ELEVATED BLOOD-PRESSURE READING, W/O ARSEN 01/26/2019 HELENE JENNIFER L NAIL FEEDER Ot R07.89 OTHER CHEST PAIN 01/26/2019 HELENE JENNIFER L NAIL FEEDER Ot R20 .2 PARESTHESIA OF SKIN 01/26/2019 NARAYANBARBIEI L NAIL FEEDER Ot S46.812A STRAIN OF [facility]/FASC/TEND AT [facility] ARM 01/26/2019 BARBIE NARAYANI L NAIL FEEDER Ot T14.8XXA OTHER INJURY OF UNSPECIFIED BODY REGION, 01/26/2019 NARAYANJENNIFER L NAIL FEEDER Ot 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 02/05/2019 HELENE JENNIFER L NAIL FEEDER Ot E78.49 OTHER HYPERLIPIDEMIA 02/05/2019 HELENE JENNIFER L NAIL FEEDER Ot F32 .9 MAJOR DEPRESSIVE DISORDER, SINGLE EPISOD 02/05/2019 HELENE JENNIFER L NAIL FEEDER Ot F41 .9 ANXIETY DISORDER, UNSPECIFIED 02/05/2019 HELENE JENNIFER L NAIL FEEDER Ot J30.89 OTHER ALLERGIC RHINITIS 02/05/2019 HELEEN JENNIFER L NAIL FEEDER Ot M54.14 RADICULOPATHY, THORACIC REGION 02/05/2019 HELENE JENNIFER L NAIL FEEDER Ot R03 .0 ELEVATED BLOOD-PRESSURE READING, W/O ARSEN 02/05/2019 JENNIFER NARAYAN Yohan CARDENAS Ot R07.89 OTHER CHEST PAIN 02/05/2019 JENNIFER NARAYAN Yohan CARDENAS Ot R20 .2 PARESTHESIA OF SKIN 02/05/2019 JENNIFER NARAYAN Yohan NAIL FEEDER Ot S46.812A STRAIN OF MUSC/FASC/TEND AT [facility]/UP ARM 02/05/2019 JENNIFER NARAYAN Yohan NAIL FEEDER Ot T14.8XXA OTHER INJURY OF UNSPECIFIED BODY REGION, 02/05/2019 JENNIFER NARAYAN Yohan NAIL FEEDER Ot Z86.718 PERSONAL HISTORY OF OTHER VENOUS [...] ESPINO DOIC B Ot Z79.8 99 OTHER VICE PRESIDENT CORPORATE COMMUNICATIONS (CURRENT) DRUG THERAPY 02/16/2019 JESSICA ESPINO DOIC [...] DO, RONNI B Ot Z79.8 99 OTHER VICE PRESIDENT CORPORATE COMMUNICATIONS (CURRENT) DRUG THERAPY 03/09/2019 DELMAN DO, RONNI [...] DO, RONNI B Ot Z79.8 99 OTHER PENITENTIARY (CURRENT) DRUG THERAPY 03/13/2019 DELMAN DO, RONNI [...] GASTRITIS, UNSPECIFIED, WITHOUT BLEEDING 03/16/2019 DELMAN DO, RNONI B Ot K44.9 DIAPHRAGMATIC HERNIA WITHOUT OBSTRUCTION 03/16/2019 DELMAN DO, RONNI B Ot Z79.8 99 OTHER PENITENTIARY (CURRENT) DRUG THERAPY 03/16/2019 DELMAN DO, RONNI B Ot Z82.4 9 FAMILY HX OF ISCHEM HEART DIS AND OTH DI 03/16/2019 DELMAN DO, RONNI B Ot Z83.3 FAMILY HISTORY OF DIABETES MELLITUS 03/16/2019 KENZIE MCCULLOUGH RONNI Alvarado Ot Z86.7 11 PERSONAL HISTORY OF PULMONARY EMBOLISM 03/16/2019 KENZIE MCCULLOUGHRONNI Ot Z86.7 18 PERSONAL HISTORY OF OTHER VENOUS THROMBO 07/31/2019 JAN LANGE, VIGNESH Garner Ot E78.00 PURE HYPERCHOLESTEROLEMIA, UNSPECIFIED 07/31/2019 VIGNESH MONTOYA MD, Ot F41.9 ANXIETY DISORDER, UNSPECIFIED 07/31/2019 JAN LANGE, VIGNESH Garner Ot R07.89 OTHER CHEST PAIN 07/31/2019 VIGNESH MONTOYA MD Ot R07.9 CHEST PAIN, UNSPECIFIED 07/31/2019 VIGNESH MONTOYA MD Ot R20.2 PARESTHESIA OF SKIN 07/31/2019 VIGNESH MONTOYA MD, Ot Z82.49 FAMILY HX OF ISCHEM HEART DIS AND OTH DI 08/02/2019 ELLIS BOYD MD, Ot E78.00 PURE HYPERCHOLESTEROLEMIA, UNSPECIFIED 08/02/2019 ELLIS BOYD MD, Ot F41.9 ANXIETY DISORDER, UNSPECIFIED 08/02/2019 ELLIS BOYD MD Ot R07.89 OTHER CHEST PAIN 08/02/2019 ELLIS BOYD MD Ot Z82.49 FAMILY HX OF ISCHEM HEART DIS AND OTH DI 08/02/2019 MOOK MILLER MD, Ot K42.9 UMBILICAL HERNIA WITHOUT OBSTRUCTION OR 08/02/2019 MOOK MILLER MD, Ot K57.3 0 DVRTCLOS OF LG INT W/O PERFORATION OR AB 08/02/2019 MOOK MILLER MD, Ot R31.0 GROSS HEMATURIA 08/02/2019 ONEIDA AQUINO MD Ot I26. 99 OTHER PULMONARY EMBOLISM WITHOUT ACUTE C 08/02/2019 ONEIDA AQUINO MD Ot R07. 89 OTHER CHEST PAIN 08/02/2019 DI BECKFORD MD Ot 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, 08/02/2019 DI BECKFORD MD Ot I82.402 ACUTE EMBOLISM AND THOMBOS UNSP DEEP VEI 08/02/2019 DI BECKFORD MD, Ot Z79. 01 PENITENTIARY (CURRENT) USE OF ANTICOAGULANT 08/02/2019 DI BECKFORD [...] VEI 08/02/2019 NOEMY MURDOCK MD Ot Z79.01 PENITENTIARY (CURRENT) USE OF ANTICOAGULANT 08/02/2019 NOEMY MURDOCK MD Ot Z79.899 OTHER VICE PRESIDENT CORPORATE COMMUNICATIONS (CURRENT) DRUG THERAPY 08/02/2019 JENNIFER NARAYAN NAIL FEEDER Ot E78.49 OTHER HYPERLIPIDEMIA 08/02/2019 HELENE JENNIFER L NAIL FEEDER Ot F32 .9 MAJOR DEPRESSIVE DISORDER, SINGLE EPISOD 08/02/2019 BARBIE NARAYANI L NAIL FEEDER Ot F41 .9 ANXIETY DISORDER, UNSPECIFIED 08/02/2019 HELENE JENNIFER L NAIL FEEDER Ot J30.89 OTHER ALLERGIC RHINITIS 08/02/2019 HELENE JENNIFER L NAIL FEEDER Ot M54.14 RADICULOPATHY, THORACIC REGION 08/02/2019 HELENE EJNNIFER L NAIL FEEDER Ot R03 .0 ELEVATED BLOOD-PRESSURE READING, W/O ARSEN 08/02/2019 HELENE JENNIFER L NAIL FEEDER Ot R07.89 OTHER CHEST PAIN 08/02/2019 HELENE JENNIFER L NAIL FEEDER Ot R20 .2 PARESTHESIA OF SKIN 08/02/2019 HELENE JENNIFER L NAIL FEEDER Ot S46.812A STRAIN OF MUSC/FASC/TEND AT SHLDR/UP ARM 08/02/2019 HELENE JENNIFER L NAIL FEEDER Ot T14.8XXA OTHER INJURY OF UNSPECIFIED BODY REGION, 08/02/2019 JENNIFER NARAYAN L NAIL FEEDER Ot 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 08/02/2019 DI BECKFORD MD Ot R07. 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 99 OTHER PULMONARY EMBOLISM WITHOUT ACUTE C 10/06/2019 ONEIDA AQUINO MD Ot R07. 89 OTHER CHEST PAIN 10/06/2019 DI BECKFORD MD Ot 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, 10/06/2019 DI BECKFORD MD, Ot I82.402 ACUTE EMBOLISM AND THOMBOS UNSP DEEP VEI 10/06/2019 DI BECKFORD MD, Ot Z79. 01 PENITENTIARY (CURRENT) USE OF ANTICOAGULANT 10/06/2019 DI BECKFORD MD Ot L04. 0 ACUTE LYMPHADENITIS OF FACE, HEAD AND NE 10/06/2019 DI BECKFORD MD Ot R07. 9 CHEST PAIN, UNSPECIFIED 10/06/2019 NOEMY MURDOCK MD Ot E78.5 HYPERLIPIDEMIA, UNSPECIFIED 10/06/2019 NOEMY MURDOCK MD Ot I26.99 OTHER PULMONARY EMBOLISM WITHOUT ACUTE C 10/06/2019 NOEMY MURDOCK MD Ot I82.402 ACUTE EMBOLISM AND THOMBOS UNSP DEEP VEI 10/06/2019 NOEMY MURDOCK MD Ot Z79.01 VICE PRESIDENT CORPORATE COMMUNICATIONS (CURRENT) USE OF ANTICOAGULANT 10/06/2019 NOEMY MURDOCK MD Ot Z79.899 OTHER VICE PRESIDENT CORPORATE COMMUNICATIONS (CURRENT) DRUG THERAPY 10/06/2019 JENNIFER NARAYAN APRN Ot E78.49 OTHER HYPERLIPIDEMIA 10/06/2019 NARAYAN, JENNIFER L NAIL FEEDER Ot F32 .9 MAJOR DEPRESSIVE DISORDER, SINGLE EPISOD 10/06/2019 JENNIFER NARAYAN NAIL FEEDER Ot F41 .9 ANXIETY DISORDER, UNSPECIFIED 10/06/2019 JENNIFER NARAYAN NAIL FEEDER Ot J30.89 OTHER ALLERGIC RHINITIS 10/06/2019 JENNIFER NARAYAN NAIL FEEDER Ot M54.14 RADICULOPATHY, THORACIC REGION 10/06/2019 JENNIFER NARAYAN NAIL FEEDER Ot R03 .0 ELEVATED BLOOD-PRESSURE READING, W/O ARSEN 10/06/2019 JENNIFER NARAYAN NAIL FEEDER Ot R07.89 OTHER CHEST PAIN 10/06/2019 JENNIFER NARAYAN NAIL FEEDER Ot R20 .2 PARESTHESIA OF SKIN 10/06/2019 JENNIFER NARAYAN NAIL FEEDER Ot S46.812A STRAIN OF MUSC/FASC/TEND AT SHLDR/UP ARM 10/06/2019 JENNIFER NARAYAN NAIL FEEDER Ot T14.8XXA OTHER INJURY OF UNSPECIFIED BODY REGION, 10/06/2019 JENNIFER NARAYAN NAIL FEEDER Ot 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 10/06/2019 SHAKEEL LANGE, DI Christianson Ot R07. 2 PRECORDIAL PAIN 10/06/2019 KENIA LANGE, ONEIDA Christianson Ot E78. 2 MIXED HYPERLIPIDEMIA 10/06/2019 KENIA LANGE, ONEIDA Christianson Ot I26. 99 OTHER PULMONARY EMBOLISM WITHOUT ACUTE C 10/06/2019 KENIA LANGE, ONEIDA Christianson Ot I82.492 ACUTE EMBOLISM AND THROMBOSIS OF DEEP VE 10/06/2019 KENIA LANGE, ONEIDA Christianson Ot R07. 9 CHEST PAIN, UNSPECIFIED 10/14/2019 JORGE CANSECO PT Ot M54.6 PAIN IN THORACIC SPINE 10/14/2019 JORGE CANSECO PT Ot R07.81 PLEURODYNIA 10/14/2019 JORGE CANSECO PT Ot R07.89 OTHER CHEST PAIN 10/14/2019 JORGE CANSECO PT Ot M54.6 PAIN IN THORACIC SPINE 10/14/2019 JORGE CANSECO PT Ot R07.81 PLEURODYNIA 10/14/2019 JORGE CANSECO PT Ot R07.89 OTHER CHEST PAIN 11/02/2019 JORGE CANSECO PT Ot M54.6 PAIN IN THORACIC SPINE 11/02/2019 JORGE CANSECO PT Ot R07.81 PLEURODYNIA 11/02/2019 JORGE CANSECO PT Ot R07.89 OTHER CHEST PAIN 11/13/2019 JORGE CANSECO PT Ot M54.6 PAIN IN THORACIC SPINE 11/13/2019 JORGE CANSECO PT Ot R07.81 PLEURODYNIA 11/13/2019 JORGE CANSECO PT Ot R07.89 OTHER CHEST PAIN 11/16/2019 ONEIDA AQUINO MD, Ot E78. 2 MIXED HYPERLIPIDEMIA 11/16/2019 ONEIDA AQUINO MD, Ot I26. 99 OTHER PULMONARY EMBOLISM WITHOUT ACUTE C 11/16/2019 ONEIDA AQUINO MD, Ot I82.492 ACUTE EMBOLISM AND THROMBOSIS OF DEEP VE 11/16/2019 ONEIDA AQUINO MD, Ot R07. 9 CHEST PAIN, UNSPECIFIED 11/18/2019 ONEIDA AQUINO MD, Ot E78. 2 MIXED HYPERLIPIDEMIA 11/18/2019 ONEIDA AQUINO MD, Ot I26. 99 OTHER PULMONARY EMBOLISM WITHOUT ACUTE C 11/18/2019 ONEIDA AQUINO MD, Ot I82.492 ACUTE EMBOLISM AND THROMBOSIS OF DEEP VE 11/18/2019 ONEIDA AQUINO MD, Ot R07. 9 CHEST PAIN, UNSPECIFIED Procedures There is no data. Results Test [...] Status Pt. Type Provider Facility Loc./Unit Complaint [id number] 08/18/2019 07:48:00 00:01:00 DIS Outpatient KENIA LANGE, ONEIDA Christianson [facility] CARD DVT,CHEST PAIN ON EXERT ION,PULM EMBOLISM ON RT [id number] 08/02/2019 05:04:00 08:03:00 DIS Emergency DEB LANGE, ELILS Correa [facility] ER ANXIOUS, PANICI NG, CHEST PAIN [id number] 07/31/2019 06:54:00 08:51:00 DIS Emergency JAN LANGE, VIGNESH Garner [facility] ER CP [id number] 02/16/2019 10:56:00 13:35:00 DIS Outpatient RONNI ESPINO DO [facility] ENDO GERD/PAIN [id number] 02/13/2019 10:25:00 10:36:00 DIS Outpatient RONNI ESPINO DO [facility] PREOP EGD [id number] 01/23/2019 11:17:00 23:59:59 CLS Outpatient DI BECKFORD MD [facility] RAD STERNAL PAIN ON-GOING [id number] 01/20/2019 09:13:00 23:59:59 CLS Outpatient JENNIFER NARAYAN NAIL FEEDER [facility] RAD PARATHESIA LEFT SIDE CH EST AND ARM [id number] 01/11/2019 14:53:00 23:59:59 CLS Outpatient SHON GUZMAN NAIL FEEDER [facility] LABNPT [id number] 12/10/2018 06:42:00 07:45:00 DIS Emergency DEB LANGE, ELLIS Correa [facility] ER SHARP CP [id number] 11/18/2018 05:13:00 06:48:00 DIS Emergency JAN LANGE, VIGNESH Garner [facility] ER CP, BACK SHOU LDER PAIN,ANXIETY [id number] 10/03/2018 00:14:00 23:59:59 CLS Preadmit NOEMY MURDOCK MD [facility] ONC [id number] 07/04/2018 08:24:00 00:01:00 DIS Outpatient NOEMY MURDOCK MD, V [facility] ONC [id number] 09/06/2018 06:58:00 09:00:00 DIS Emergency GLEN KENNY MD [facility] ER CHEST DISCOMFORT [id number] 09/02/2018 08:49:00 23:59:59 CLS Outpatient DI BECKFORD MD [facility] CARD CHEST PAIN [id number] 08/06/2018 12:36:00 14:20:00 DIS Emergency MARY SNYDER APRN [facility] ER CHEST PAIN [id number] 04/02/2018 10:20:00 00:01:00 DIS Outpatient NOEMY MURDOCK MD, V [facility] ONC [id number] 06/04/2018 10:43:00 23:59:59 CLS Outpatient DI BECKFORD MD [facility] RAD ACUTE LYMPHADENITIS OF FACE,HEAD AND NECK [id number] 05/05/2018 07:16:00 23:59:59 CLS Outpatient ONEIDA AQUINO MD [facility] CARD ANTERIOR CHEST WALL [place] N,DVT,PE [id number] 04/02/2018 11:51:00 23:59:59 CLS Outpatient DI BECKFORD MD [facility] RAD DVT [id number] 03/24/2018 06:58:00 08:00:00 DIS Emergency DUNG GAINES MD [facility] ER ANXIETY [id number] 03/20/2018 10:31:00 018 23:59:59 CLS Outpatient SHAKEEL LANGE, DI Christianson [facility] RAD THROACIC BACK PAIN [id number] 03/13/2018 11:13:00 018 13:22:00 DIS Emergency MARY SNYDER NAIL FEEDER [facility] ER CHEST PAIN [id number] 02/25/2018 12:07:00 018 23:59:59 CLS Preadmit KENIA LANGE, ONEIDA Christianson [facility] CARD R07.89 ANTERIOR CHEST W ALL PAIN [id number] 01/29/2018 14:59:00 018 00:01:00 DIS Outpatient MATHIEU LANGE, NOEMY Pisano ia [facility] ONC [id number] 01/20/2018 20:12:00 018 22:11:00 DIS Emergency MARY SNYDER NAIL FEEDER [facility] ER BLOOD CLOT [id number] 01/16/2018 06:17:00 018 07:00:00 DIS Emergency DEB LANGE, ELLIS Correa [facility] ER PAIN BEHIND KNE E, LEFT LEG [id number] 11/12/2016 12:21:00 017 23:59:59 CLS Outpatient MOOK MILLER MD [facility] RAD GROSS HEMATURIA [id number] 11/24/2019 14:03:[address] Outpatient JORGE CANSECO PT [facility] REHAB RIB AND CHEST PAIN [id number] 02/03/2018 15:49:00 Document Registration
--- NOTE | 2019-11-27 08:47 | Diagnostic Imaging Report ---
EXAMINATION: Chest 1 view HISTORY: Chest pain. Dyspnea. COMPARISON: Chest radiograph on 08/02/2019. FINDINGS: The lung volumes are normal. No focal consolidation is seen. No large pleural effusion or pneumothorax is seen. The cardiomediastinal silhouette is normal in size and contour. No acute osseous abnormality is seen. IMPRESSION: 1. No acute pleuroparenchymal process. Dictated by: Dictated on workstation # [id number]
[2019-11-27 09:03] LABS: HEMOGLOBIN 15.3 G/DL (13.3-17.7); MEAN PLATELET VOLUME 9.7 FL (7.4-10.4); RED CELL DISTRIBUTION WIDTH 12.6 % (10.0-14.5); WHITE BLOOD COUNT 7.2 10^3/uL (4.3-11.0)
[2019-11-27 09:12] LABS: BILIRUBIN,URINE NEGATIVE (NEGATIVE); CLARITY,URINE CLEAR; COLOR,URINE YELLOW; GLUCOSE, URINE (UA) NEGATIVE (NEGATIVE); KETONES,URINE NEGATIVE (NEGATIVE); LEUKOCYTE ESTERASE ,URINE NEGATIVE (NEGATIVE); NITRITE,URINE NEGATIVE (NEGATIVE); PH,URINE 6.5 (5-9); PROTEIN,URINE NEGATIVE (NEGATIVE)
[2019-11-27 09:15] LABS: PROTHROMBIN TIME PATIENT 13.8 SEC (12.2-14.7)
[2019-11-27 09:23] LABS: ALANINE AMINOTRANSFERASE 35 U/L (0-55); ALBUMIN 4.4 GM/DL (3.2-4.5); ALKALINE PHOSPHATASE 61 U/L (40-136); BILIRUBIN,TOTAL 1.3 MG/DL (0.1-1.0); BUN/CREATININE RATIO 11; CALCIUM 9.2 MG/DL (8.5-10.1); CARBON DIOXIDE 24 MMOL/L (21-32); CHLORIDE 105 MMOL/L (98-107); CHOLESTEROL 172 MG/DL (< 200); CREATININE SERUM 0.93 MG/DL (0.60-1.30); GFR ESTIMATED > 60; GLUCOSE 112 MG/DL (70-105); HDL CHOLESTEROL 51 MG/DL (40-60); SODIUM 138 MMOL/L (135-145); TOTAL PROTEIN 7.2 GM/DL (6.4-8.2); TRIGLYCERIDES 79 MG/DL (<150); VLDL CHOLESTEROL 16 MG/DL (5-40)
[2019-11-27 09:41] LABS: BACTERIA,URINE NEGATIVE /HPF
[2019-11-27] MEDS ORDERED: MTP25TSR PO (09:56)
[2019-11-27] MEDS ORDERED: DULO30CA3 PO (09:56)
[2019-11-27] MEDS ORDERED: fentaNYL INJECTION 100 MCG/2 ML AMP ONE (10:30)
[2019-11-27] MEDS ORDERED: MIDAZOLAM 5 MG/5 ML (VERSED) VIAL ONE (10:30)
[2019-11-27] MEDS ORDERED: HEParin 1000 UNIT/ML (10ML VIAL) FOR BOLUS ONE (10:32)
[2019-11-27] MEDS ORDERED: NITRO DRIP 25000 MCG/D5W 250 ML IV ONE (10:32)
[2019-11-27] MEDS ORDERED: VERAPAMIL 5 MG/2 ML (CALAN) VIAL IV ONE (10:32)
--- NOTE | 2019-11-27 11:17 | Discharge Inst-Post CATH ---
Discharge Inst-CATH/EP Problems Reviewed?: Yes Post Cardiac Cath/EP D/C Inst Follow Up/Plan Appointment with Dr. Durbin's office in 2-4 weeks <b>CARDIAC CATH/EP PROCEDURE DISCHARGE INSTRUCTIONS</b> ACTIVITY * Go Home directly and rest. * Limit activity of the leg (or wrist if it was used) for 7 days including aerobics, swimming, jogging, bicycling, etc. * Restrict stair-climbing for 7 days if possible, if not, climb up with your non-cath leg, then bring together on the same step. * Avoid lifting, pushing, pulling or excessive movement of the affected extremity for 7 days. * Customary sexual activity may be resumed after 2 days-use caution not to use a position that strains or causes pain to the affected extremity. * No driving for 24 hours. * NO SMOKING. * Avoid straining for bowel movements for 7 days. * Gentle walking on level ground is allowed. * Returning to work will depend on the type of procedure and the results. Your doctor will discuss this with you. CALL YOUR DOCTOR FOR ANY OF THE FOLLOWING: *If bleeding from the puncture site occurs- Apply gentle pressure to site with clean cloth and call your doctor or EMS. * If a knot or lump forms under the skin, increases in size, or causes pain. * If bruising appears to be worsening or moving further down your leg instead of disappearing. * Temperature above 101 F. CARE OF YOUR GROIN INCISION; * Bruising or purple discoloration of the skin near the puncture site is common. * You may shower only, no bathtub bathing for 5 days. Be careful to avoid slipping as your leg may feel stiff. * If a closure device was used on your femoral artery, please see the attached guide regarding care of the device and your leg. * Leave dressing on FOR 24 hours. CARE OF YOUR WRIST INCISION; * Bruising or purple discoloration of the skin near the puncture site is common. * You may shower. * DO NOT submerge wrist. * Leave dressing on FOR 24 hours. ONEIDA DURBIN MD Nov 27, 2019 11:17
--- NOTE | 2019-11-27 11:18 | Cardiac Procedure Note-CS/ASA ---
Pre-Procedure Note Pre-Op Procedure Note H&P Reviewed The H&P was reviewed, patient examined and no changes noted. Date H&P Reviewed: Nov 27, 2019 Time H&P Reviewed: 10:00 Conscious Sedation Pre-Proced Time 10:00 ASA Score 3 For ASA 3 and 4: Consider anesthesia and medical clearance. Also, for patients with a history of failed moderate sedation consider anesthesia. Airway Lungs Heart ASA score ASA 1: a normal healthy patient ASA 2: a patient with a mild systemic disease (mid diabetes, controlled hypertension, obesity x ASA 3: a patient with a severe systemic disease that limits activity (angina, COPD, prior Myocardial infarction) ASA 4: a patient with an incapacitating disease that is a constant threat to life (CHF, renal failure) ASA 5: a moribund patient not expected to survive 24 hrs. (ruptured aneurysm) ASA 6: a declared brain- patient whose organs are being harvested. For emergent operations, add the letter E after the classification Mallampati Classification Grade 3 Sedation Plan Analgesia, Amnesia, Plan communicated to team members, Discussed options with patient/fam, Discussed risks with patient/fam The patient is an appropriate candidate to undergo the planned procedure, sedation, and anesthesia. The patient immediately re-assessed prior to indication. ONEIDA AQUINO MD Nov 27, 2019 11:18
--- NOTE | 2019-11-27 11:22 | Cardiac Cath Report ---
Cardiac Cath Report Physician (s)/Substation Supervisor (s) Physician ONEIDA AQUINO MD Pre-Procedure Diagnosis Pre-Procedure Diagnosis: chest pain Post-Procedure Note Procedure Start Date: Nov 27, 2019 Name of Procedure: Left heartcatheterization Left ventriculogram Aortic arch angiogram Findings/Procedure Note PROCEDURE NOTE: 44 years old gentleman with history of pulmonary embolism, continued to have recurrent chest pain, very anxious and concerned about his chest pain, we had a long discussion about all the testing was done in the past, still concerned about the recurrent chest pain, decided to proceed with cardiac catheterization possible PTCA, during the procedure his coronaries were normal and elected to e valuate his aortic arch due to the recurrent chest pain. After explaining the procedure to the patient, all pros and cons were explained, all questions were answered. The patient signed the consent and then he was placed on the cardiac catheterization laboratory. Groin was prepped SL fashion local anesthesia was used. Sheath placed in the right radial artery, Bronaugh catheter was used, evaluated the coronary system then prolapse of the left ventricle and left ventriculogram was done then pulled to the aortic arch and arch angiogram was done.artery. At the end of the procedure the sheath was removed. Closure device was used FINDINGS: Hemodynamics LV Aorta ANATOMY: Left Main is free of obstructive disease Left Anterior Descending as mild irregularity no obstructive disease Left Circumflex is free of obstructive disease Right Coronory Artery is dominant artery with no significant obstructive disease LV Gram was done showing normal left ventricular size and systolic function estimated ejection fraction 60 percent Aorta evaluation done with arch angiogram showing normal aortic arch, no dissection or aneurysm, normal origin of the brachiocephalic artery, left carotid and left subclavian arteries CONCLUSION: 1. Normal coronary system with nonobstructive disease 2. Normal left ventricular size and systolic function estimated ejection fraction 60 percent 3. Normal aortic arch and great vessels of the neck DISCUSSION AND RECOMMENDATION: chest pain is unlikely to be cardiac in nature Anesthesia Type: Conscious Sedation Estimated blood loss (mL): 5 ml Contrast Amount: 60 ml Total Radiation Dose: 361 mGy Post-Procedure Diagnosis Post-operative diagnosis: Chest pain Pulmonary embolism Shortness of breath ONEIDA AQUINO MD Nov 27, 2019 11:22
== END 2019-11-27 13:30 | disposition home or self-care (01) ==
LOC: CATH 08:12 → SDC 11:20 → CATH 13:30
PROVIDERS: ATTEND Internal Medicine Cardiovascular Disease
DX: R07.89 Other chest pain (principal); R06.02 Shortness of breath; I26.99 Other pulmonary embolism without acute cor pulmonale; I82.409 Acute embolism and thrombosis of unspecified deep veins of unspecified lower extremity; I10 Essential (primary) hypertension; I35.1 Nonrheumatic aortic (valve) insufficiency; E78.2 Mixed hyperlipidemia; F41.9 Anxiety disorder, unspecified; F32.9 Major depressive disorder, single episode, unspecified; Z79.899 Other long term (current) drug therapy; Z83.3 Family history of diabetes mellitus
CPT/HCPCS: 36221; 36415; 71045; 80053; 80061; 81000; 85027; 85610; 85730; 87081; 93005; 93458

== ENCOUNTER → 2020-12-14 | Outpatient (CLI) | payer BC ==
[~2020-12-14] MED LIST changes: +DULO30CA3 PO; +MTP25TSR PO; +SERT-412; +SERT-413; +SERT-413 PO; -SERT25TA5; -SERT50TA9; -SERT50TA9 PO
== END ==
LOC: CARD 09:57
PROVIDERS: ATTEND Family Medicine
DX: R00.2 Palpitations (principal)
CPT/HCPCS: 93005

== ENCOUNTER 2023-01-09 05:38 | Outpatient (CLI) | payer BC ==
[~2023-01-09] VITALS: Ht 180.3 cm; Wt 86.6 kg
[~2023-01-09 05:38] MED LIST changes: -CITA10TA7; +CITA10TA9
[2023-01-09] MEDS ORDERED: STRAT40CAP PO (10:45)
[2023-01-09] MEDS ORDERED: PARO20TA5 PO (10:45)
[2023-01-09] MEDS ORDERED: BUSP15TA60 PO (10:45)
== END 2023-01-09 10:50 | disposition home or self-care (01) ==
LOC: PREOP 05:38
PROVIDERS: ATTEND Surgery
DX: Z01.818 Encounter for other preprocedural examination (principal)

== ENCOUNTER 2023-01-22 09:53 | Day surgery (SDC) | payer BC ==
[~2023-01-22 09:53] MED LIST changes: +BUSP15TA60 PO; +PARO20TA5 PO; +STRAT40CAP PO
[2023-01-22] MEDS ORDERED: LACTATED RINGERS 1,000 ML IV STA (10:08)
[2023-01-22] MEDS ORDERED: LACTATED RINGERS 1,000 ML IV ONE (10:11)
[2023-01-22 10:15] VITALS: BP 139/95
[2023-01-22] MEDS ORDERED: PROPOFOL INJECTION 50 ML IV ONE (10:54)
--- NOTE | 2023-01-22 11:19 | Anesthesia-General Post-Op ---
MAC Patient Condition Mental Status/LOC: Same as Preop Cardiovascular: Satisfactory Nausea/Vomiting: Absent Respiratory: Satisfactory Pain: Controlled Complications: Absent Post Op Complications Complications None Follow Up Care/Instructions Patient Instructions None needed. Anesthesiology Discharge Order Discharge Order Patient is doing well, no complaints, stable vital signs, no apparent adverse anesthesia problems. No complications reported per nursing. ADRY PARSONS CRNA Jan 22, 2023 11:19
[2023-01-22 11:20] VITALS: BP 105/67
--- NOTE | 2023-01-22 11:21 | Progress Note-Post Operative ---
Post-Operative Progess Note Surgeon (s)/Rn Clinical Review (s) Surgeon REILLY MENDEZ DO Rn Clinical Review: none Pre-Operative Diagnosis screening Post-Operative Diagnosis sigmoid polyp Procedure & Operative Findings Date of Procedure 01/22/23 Procedure Performed/Findings colonoscopy with hot biopsy polypectomy Anesthesia Type per [employer] Estimated Blood Loss Estimated blood loss (mL): none Specimens/Packing Specimens Removed sigmoid polyp REILLY MENDEZ DO Jan 22, 2023 11:21
[2023-01-22 11:25] VITALS: BP 110/68
--- NOTE | 2023-01-22 11:26 | Discharge Inst-Simple/Standard ---
Discharge Inst-Standard Patient Instructions/Follow Up Plan of Care/Instructions/FU: osiel 2 weeks Activity as Tolerated: Yes Discharge Diet: Regular Diet REILLY MENDEZ DO Jan 22, 2023 11:25
[2023-01-22 11:30] VITALS: BP 85/59
[2023-01-22 11:43] VITALS: BP 121/81
--- NOTE | 2023-01-22 17:35 | OPERATIVE REPORT ---
DATE OF SERVICE: 01/22/2023 PREOPERATIVE DIAGNOSIS: Screening colonoscopy. POSTOPERATIVE DIAGNOSIS: Sigmoid colon polyp. PROCEDURE: Colonoscopy with hot biopsy polypectomy x1. SURGEON: Reilly Vega DO ANESTHESIA: Per CHECK WRITING MACHINE OPERATOR. ESTIMATED BLOOD LOSS: None. COMPLICATIONS: None. INDICATIONS: The patient is a 47-year-old male, needing screening colonoscopy. He understands risks and benefits of procedure and wished to proceed. Consent was signed in chart. DESCRIPTION OF PROCEDURE: The patient was taken to endoscopy suite, placed in left lateral recumbent position. Timeout was performed. Digital rectal exam was performed. No palpable polyps, masses or ulcerations. Scope was inserted in the rectum and advanced all the way to the cecum with minimal difficulty. Prep was adequate. Scope was slowly retracted back. No polyps, masses or ulcerations within the cecum, ascending, transverse and descending colon. Sigmoid colon has small polyp present, which hot biopsy polypectomy was performed. Scope was then continuously retracted back into the rectum where it was also retroflexed, noting no other pathology. Scope was returned to its normal position, slowly withdrawn until completely removed. The patient tolerated the procedure well without any complications, taken to recovery room in stable condition. RECOMMENDATIONS: The patient will need repeat colonoscopy in 5 years. Any issues before that, be seen at that time. He will follow up on pathology in 2 weeks. Job ID: [id number] DocumentID: [id number] Dictated Date: 01/22/2023 11:19:10 Production Support Engineer Date: 01/22/2023 17:33:00 Dictated By: REILLY VEGA DO
== END 2023-01-22 11:55 | disposition home or self-care (01) ==
LOC: ENDO 09:53
PROVIDERS: ATTEND Surgery
DX: Z12.11 Encounter for screening for malignant neoplasm of colon (principal); K63.5 Polyp of colon

== ENCOUNTER → 2023-04-23 | Outpatient (CLI) | payer BC | LOC: CARD 10:52 | PROVIDERS: ATTEND Family Medicine | DX: R00.2 Palpitations (principal) | CPT/HCPCS: 93005 ==